=== PATIENT | female | born 1955 | race African-American/Black ===

== ENCOUNTER 2019-05-19 11:48 | Emergency (ER) | payer MEDICARE, SELFPAY ==
--- NOTE | ~2019-05-19 | CT_ITS ---
EXAMINATION: CT abdomen pelvis wo con EXAM DATE: 05/19/2019 13:13 INDICATION: Right flank pain. TECHNIQUE: Spiral CT of the abdomen and pelvis was performed without contrast. Axial, coronal and sag ittal images were reviewed. The dose-length product (DLP) for this examination was 1121.64 mGy-cm. The exposure was tailored according to patient size (auto mA exposure control), and iterative reconst ruction (ASIR) was used as additional dose reduction technique. There is no prior study for comparis on. FINDINGS: There is no nephrolithiasis or hydronephrosis. The uterus is anteverted and morphological ly normal. The bladder is unremarkable. The liver, spleen, adrenal glands and pancreas are unremar kable. Gallbladder is unremarkable. No biliary obstruction. There is no retroperitoneal or pelvic lymphadenopathy. There are 2 anterior abdominal wall hernias containing portions of the antimesenteri c side of transverse colon. No inflammation. The appendix is not positively visualized. There is no pericecal inflammatory change to suggest appe ndicitis. The stomach and small bowel are unremarkable. There is expected amount of colonic stool. No free intraperitoneal gas. The heart is normal in size. There are no pericardial or pleural e ffusions. The lung bases are unremarkable. The bones are unremarkable. IMPRESSION: 1. No nephrolithiasis, hydronephrosis or acute intra-abdominal findings. 2. Fat-containing upper abdominal anterior hernia is containing portions of nonobstructed antimesent maldonado transverse colon. Reviewed, dictated and finalized at location B. IMPRESSION: 1. No nephrolithiasis, hydronephrosis or acute intra-abdominal findings. 2. Fat-containing upper abdominal anterior hernia is containing portions of no nobstructed antimesenteric transverse colon.
[2019-05-19 12:08] VITALS: BP 132/78; PULSE 97; RESP 18; O2SAT 98
[2019-05-19 12:32] LABS: Basophils Absolute Auto 0.1 K/mm3 (0.0-0.1); Basophils Percent Auto 0.6 % (0.2-1.2); Eosinophils Absolute Auto 0.5 K/mm3 (0-0.3); Eosinophils Percent Auto 5.6 % (0-4.4); Hematocrit 41.9 % (37.0-47.0); Hemoglobin 13.1 g/dL (12.0-15.0); Immature Granulocyte Absolute 0.03 K/mm3 (0.00-0.031); Immature Granulocyte Percent A 0.3 % (0-0.5); Lymphocytes Absolute Auto 2.35 K/mm3 (0.9-3.2); Lymphocytes Percent Auto 26.6 % (18.3-44.2); Mean Corpuscular HGB Conc 31.3 g/dl (32-36); Mean Corpuscular Hemoglobin 24.1 pg (26-34); Mean Corpuscular Volume 77.2 fl (80-100); Mean Platelet Volume 10.8 fl (7.4-10.4); Monocytes Absolute Auto 0.5 K/mm3 (0.1-0.6); Monocytes Percent Auto 5.6 % (2.6-8.5); Neutrophils Absolute Auto 5.4 K/mm3 (1.3-6.7); Neutrophils Percent Auto 61.3 % (45.5-73.1); Platelet Count Result 319 k/mm3 (150-375); Red Blood Count 5.43 M/mm3 (4.2-5.4); Red Cell Distribution Width 16.7 % (11.5-14.5); White Blood Count 8.9 K/mm3 (4.5-10.0)
[2019-05-19 12:36] LABS: Add Urine Microscopic? YES; Appearance Urine Clear (Clear); Bacteria Urine Trace /hpf; Bilirubin Urine Negative (Negative); Blood Urine Negative (Negative); Color Urine Yellow (Yellow); Glucose Urine UA Negative (Negative); Ketones Urine Negative (Negative); Leukocyte Esterase Ur Negative LEU/UL (Negative); Mucus Urine Rare /lpf; Nitrate Urine Negative (Negative); Protein Urine Negative (Negative); RBC Urine 0-2 /hpf (0-2); Specific Grav Ur 1.013 (1.001-1.035); Squamous Epithelial Cell Urine Rare /hpf (Few); WBC Urine 0-3 /hpf
[2019-05-19 12:43] LABS: Blood Urea Nitrogen 13 mg/dL (7-17); Carbon Dioxide 30 mmol/L (22-30); Chloride 103 mmol/L (98-107); Estimated CRCL calculation 94 ml/min; Estimated Glomerular Filt Rate > 60; Glucose 109 mg/dL (65-105); Sodium 139 mmol/L (137-145)
[2019-05-19 12:58] LABS: Alanine Aminotransferase 13 U/L (4-35); Albumin Level 4.5 g/dL (3.5-5.1); Alkaline Phosphatase 109 U/L (38-126); Aspartate Amino Transferase 21 U/L (14-36); Bilirubin,Total 0.4 mg/dL (0.2-1.3); Lipase 97 U/L (23-300)
--- NOTE | 2019-05-19 13:41 | ED.BACK ---
HPI - Back Pain/Injury General Chief Complaint: Back Pain/Injury Stated Complaint: Flank pain Time Seen by Provider: 05/19/19 12:16 Source: patient Mode of arrival: ambulatory Limitations: no limitations History of Present Illness HPI Narrative: Patient is a 63-year-old female who presents to emergency department for evaluation of right-sided flank pain noting sharp stabbing pain to the right flank worse with activity and movement patient notes that the pain radiates from the CVA region into the abdomen is worse with activity and movement. Denies similar occurrence in the past any fever chills nausea vomiting or URI symptoms. Related Data Home Medications Medication Instructions Recorded Confirmed diclofenac sodium 75 mg PO BID 05/19/19 05/19/19 levothyroxine 1 mcg/kg 05/19/19 metoprolol tartrate 50 mg PO Q12H 05/19/19 05/19/19 pantoprazole 40 mg PO QAM 05/19/19 05/19/19 Allergies Allergy/AdvReac Type Severity Reaction Status Date / Time shrimp Allergy Difficulty Verified 05/19/19 12:14 Breathing Review of Systems Review of Systems: All systems reviewed & are unremarkable except as noted in HPI and below PMFSH Past Medical History Medical History Obesity Surgical History Surgical History H/O section Social History Social History Smoking status: Current every day smoker Gender identity (if verbalized by the patient): Female Exam Narrative: Exam Narrative: GENERAL: Well-appearing, obese, and in no acute distress. HEAD: Normocephalic, atraumatic. EYES: PERRLA and EOMI. ENT: Nares clear, no rhinorrhea or epistaxis. Mucous membranes moist. Oropharynx without tonsillar hypertrophy exudate or other lesions. CHEST: Clear to auscultation. No respiratory distress. No wheezes rales or rhonchi HEART: Regular rate and rhythm. No murmur heard. Normal peripheral pulses. ABDOMEN: Soft, tenderness in the right upper abdomen, nondistended EXTREMITIES: Normal range of motion. No edema. SKIN: Warm, dry, no rash. NEURO: No focal deficits. Alert and oriented x3. PSYCH: Normal mood and affect. Course Course Emergency Course: Patient in the room at this time in no distress aware of case findings treatment plan and diagnosis agreeing to follow-up as directed or to return if symptoms worsen or concerns Vital Signs Vital signs: Vital Signs Pulse Rate 97 05/19/19 12:08 Respiratory Rate 18 05/19/19 12:08 Blood Pressure 132/78 05/19/19 12:08 Pulse Oximetry 98 05/19/19 12:08 Pulse Rate 97 05/19/19 12:08 Respiratory Rate 18 05/19/19 12:08 Blood Pressure 132/78 05/19/19 12:08 Pulse Oximetry 98 05/19/19 12:08 MDM - Back Pain/Injury MDM Narrative Medical decision making narrative: Patient in the room without any high risk changes in the blood work or imaging. Patient agreeing to follow-up as directed provided with reasons to return. Lab Data Result diagrams: 05/19/19 12:24 05/19/19 12:24 Labs: Lab Results 05/19/19 05/19/19 05/19/19 Range/Units 12:23 12:24 12:24 WBC 8.9 (4.5-10.0) K/mm3 RBC 5.43 H (4.2-5.4) M/mm3 Hgb 13.1 (12.0-15.0) g/dL Hct 41.9 (37.0-47.0) % MCV 77.2 L (80-100) fl MCH 24.1 L (26-34) pg MCHC 31.3 L (32-36) g/dl RDW 16.7 H (11.5-14.5) % Plt Count 319 (150-375) k/mm3 MPV 10.8 H (7.4-10.4) fl Immature Gran % (Auto) 0.3 (0-0.5) % Neut % (Auto) 61.3 (45.5-73.1) % Lymph % (Auto) 26.6 (18.3-44.2) % [place] % (Auto) 5.6 (2.6-8.5) % Eos % (Auto) 5.6 H (0-4.4) % Baso % (Auto) 0.6 (0.2-1.2) % Lymph # (Auto) 2.35 (0.9-3.2) K/mm3 [place] # (Auto) 0.5 (0.1-0.6) K/mm3 Eos # (Auto) 0.5 H (0-0.3) K/mm3 Baso # (Auto) 0.1 (0.0-0.1) K/mm3 Abs Immat Gran (auto) 0.03 (0.0
[2019-05-19 14:32] VITALS: BP 129/67; PULSE 58; O2SAT 98
== END 2019-05-19 14:17 | disposition home or self-care (01) ==
PROVIDERS: Emergency Medicine Emergency Medical Services; Emergency Provider Emergency Medicine; PCP Internal Medicine Infectious Disease
DX: R10.9 Unspecified abdominal pain (principal); E66.9 Obesity, unspecified; Z68.43 Body mass index [BMI] 50.0-59.9, adult; F17.210 Nicotine dependence, cigarettes, uncomplicated
CPT/HCPCS: 36415; 74176; 80048; 80076; 81001; 83690; 85025; 96365; 99284; J0131

== ENCOUNTER 2024-01-06 07:59 | Outpatient (CLI) | payer MEDICARE, OTHER, SELFPAY ==
--- NOTE | 2024-01-06 12:57 | WPDPFTINT ---
PFT Procedure Performed PFT Procedure Performed Spirometry with Pre/Post Bronchodilator Plethysmography (Lung Vol) Diffusing Cap (DLCO) Flow Vol Loop PFT Interpretation This is a pulmonary function test with pre and post-bronchodilator spirometry, plethysmography and diffusing capacity. The test was performed and results interpreted in accordance with the 2019 and 2005 ATS/ERS Task Force guidelines respectively using the Global Lung Function Initiative-2012 reference equations. Patient demonstrated good effort and cooperation. Reproducibility criteria were met. The quality of the pre bronchodilator spirometry maneuver was Grade A and post bronchodilator spirometry maneuver was Grade A. Findings: Spirometry: The contour the inspiratory and expiratory flow tracing are normal. The pre bronchodilator FVC is 2.21 L, 92% predicted. The pre bronchodilator FEV1 is 1.56 L, 83% predicted. The pre bronchodilator FEV1: FVC ratio 71%. The post bronchodilator FVC is 2.23 L, representing 1% increase. The post bronchodilator FEV1 is 1.67 L, representing a 7% increase. The post bronchodilator FEV1: FVC ratio 75%. Plethysmography: The total lung capacity is 3.52 L, 82% predicted. The functional residual capacity is 2.11 L, 79% predicted. The residual volume is 1.31 L, 67% predicted. Diffusing capacity: The diffusing capacity unadjusted for hemoglobin and carboxyhemoglobin is 15.4, 76% predicted. The diffusing capacity adjusted for alveolar volume is 4.33, 99% predicted. Impression: The spirometry is normal without evidence of an obstructive abnormality. There is no significant improvement after inhaling a single dose of albuterol. The lung volumes are normal. The diffusing capacity is normal. There are no prior studies for comparison
== END 2024-01-06 08:00 | disposition home or self-care (01) ==
PROVIDERS: PCP Internal Medicine Infectious Disease
DX: R06.00 Dyspnea, unspecified (principal)
CPT/HCPCS: 94060; 94726; 94729

== ENCOUNTER 2024-03-22 16:37 | Outpatient (CLI) | payer MEDICARE, MEDICAID, SELFPAY ==
--- NOTE | ~2024-03-22 | US_ITS ---
EXAM: Focused ultrasound examination of the soft tissues of the left axilla HISTORY: localized enlarged lymph nodes TECHNIQUE: Sonographic evaluation of the soft tissues of the left axilla were performed assessing gra yscale appearance and color Doppler flow. COMPARISON: None. FINDINGS: Within the area of palpable concern is a morphologically benign lymph node measuring 7.4 mm in short axis dimension. Sonographic evaluation of the remainder of the soft tissues of the left axilla demonstrate benign fib rofatty and fibromuscular elements without a cystic or solid lesion of concern. IMPRESSION: Morphologically benign nonpathologically enlarged lymph node within the left axilla, corresponding to the area of palpable concern Reviewed, dictated and finalized at location A. LYTIC CASE OPERATOR IMPRESSION: Morphologically benign nonpathologically enlarged lymph node within the left ax illa, corresponding to the area of palpable concern
== END 2024-03-22 16:38 | disposition home or self-care (01) ==
PROVIDERS: PCP Internal Medicine Infectious Disease; Visit Provider Internal Medicine Infectious Disease
DX: R59.0 Localized enlarged lymph nodes (principal)
CPT/HCPCS: 76882

== ENCOUNTER 2024-05-03 10:07 | Outpatient (CLI) | payer MEDICARE, MEDICAID, SELFPAY ==
[2024-05-03 11:06] LABS: Basophils Absolute Auto 0.1 K/mm3 (0.0-0.1); Basophils Percent Auto 0.7 % (0.2-1.2); Eosinophils Absolute Auto 0.5 K/mm3 (0-0.3); Eosinophils Percent Auto 7.4 % (0-4.4); Hematocrit 41.1 % (37.0-47.0); Hemoglobin 12.5 g/dL (12.0-15.0); Immature Granulocyte Absolute 0.02 K/mm3 (0.00-0.031); Immature Granulocyte Percent A 0.3 % (0-0.5); Lymphocytes Absolute Auto 1.86 K/mm3 (0.9-3.2); Lymphocytes Percent Auto 25.5 % (18.3-44.2); Mean Corpuscular HGB Conc 30.4 g/dl (32-36); Mean Corpuscular Hemoglobin 23.9 pg (26-34); Mean Corpuscular Volume 78.4 fl (80-100); Monocytes Absolute Auto 0.5 K/mm3 (0.1-0.6); Monocytes Percent Auto 6.2 % (2.6-8.5); Neutrophils Absolute Auto 4.4 K/mm3 (1.3-6.7); Neutrophils Percent Auto 59.9 % (45.5-73.1); Platelet Count Result 310 k/mm3 (150-375); Red Blood Count 5.24 M/mm3 (4.2-5.4); Red Cell Distribution Width 15.9 % (11.5-14.5); White Blood Count 7.3 K/mm3 (4.5-10.0)
[2024-05-03 11:16] LABS: Alanine Aminotransferase 11 U/L (6-35); Alkaline Phosphatase 87 U/L (38-126); Anion Gap 8 mmol/L (4-12); Aspartate Amino Transferase 17 U/L (14-36); Bilirubin,Total 0.5 mg/dL (0.2-1.3); Blood Urea Nitrogen 13 mg/dL (7-17); Calcium 9.3 mg/dL (8.4-10.2); Carbon Dioxide 29 mmol/L (22-30); Chloride 105 mmol/L (98-107); Cholesterol 216 mg/dL (0-200); Estimated Glomerular Filt Rate > 60; Glucose 98 mg/dL (65-110); HDL Direct 79 mg/dL; Potassium 4.1 mmol/L (3.4-5.0); Sodium 142 mmol/L (137-145); Triglycerides 75 mg/dL (<150)
[2024-05-03 11:21] LABS: Creatinine Urine 71.1 mg/dL
[2024-05-03 11:27] LABS: LDL Cholesterol Direct 76 mg/dL
[2024-05-03 11:29] LABS: MALB Creatinine Ratio < 8.4 mg/g (0-30); Microalbumin Urine Random < 6.0 mg/L (0-16.7)
[2024-05-03 11:35] LABS: Hemoglobin A1C 5.7 % (<5.7)
--- OUTSIDE RECORDS SUMMARY | 2024-05-03 11:37 | XMS_ITS | Data Portability ---
Author Organization [place] [employer], Main Office Address [address] [place] [address] Care Team Providers Care Radio Mechanic Helper Name Role Phone OLIVIER VOGEL Primary Care Provider OLIVIER VOGEL Referring Provider Assessment Encounter Date Assessment Date Assessment LastModified by Organization Details LastModified Time 09/24/2022 09/24/2022 Palpable lymphadenopathy of R groin. PCP concerned for persistent lymphadenopathy for the past two years. US shows bilateral lymphadenopathy. Likely inflammatory, but considering duration, will plan for core biopsy of R inguinal lymph node. DIscussed options with patient and she prefers to have bx rather than continued watchful waiting. CT does not show prominent lymph nodes, does indicate arthritis of bilateral hips and degenerative disc disease which may likely be contributing to R leg numbness/pain. [email or web address] Not available 09/24/2022 12:50:33 10/01/2023 10/01/2023 Time spent with patient included: preparing to see patient by reviewing tests, obtaining and reviewing history, medical examination and evaluation, counseling and educating the patient, ordering medications and tests, documenting clinical information in EHR, independently interpreting results and communicating results to the patient for a total of 45 minutes. Not available 10/01/2023 12:25:06 12/22/2023 12/22/2023 Time spent with patient included: preparing to see patient by reviewing tests, obtaining and reviewing history, medical examination and evaluation, counseling and educating the patient, ordering medications and tests, documenting clinical information in EHR, independently interpreting results and communicating results to the patient for a total of 42 minutes. Not available 12/22/2023 11:03:17 Plan of Treatment Reminders Order Date Submit Date Provider Last Modified By Organization Details Last Modified Time Details Appointments New Patient 15 2024 01:35P M Cricket Guillen MD Not available Not available Not available New Patient 2024 02:00P M Andrew Rivero DPM Not available Not available Not available Any 15 2024 02:30P M Summer akhtar MD Not available Not available Not available Lab microalbu min, urine [address] [place] [address] (Lab), [address] [place] [address] [address], [place], [address], 04/29/2024 17:38:17 HbA1c (hemoglob in A1c), blood [address] [place] [address] (Lab), [address] [place] [address] [address], [place], [address], 04/29/2024 17:38:17 vitamin D, 25-hydrox y, total, serum [address] [place] [address] (Lab), [address] [place] [address] [address], [place], [address], 04/29/2024 17:38:16 CMP, serum or plasma [address] [place] [address] (Lab), [address] [place] [address] [address], [place], [address], 04/29/2024 17:38:16 CBC w/ auto diff [address] [place] [address] (Lab), [address] [place] [address] [address], [place], [address], 04/29/2024 17:38:16 lipid panel, serum [address] [place] [address] (Lab), [address] [place] [address] [address], [address], 04/29/2024 17:38:16 TSH + free T4, serum [address] [place] [address] (Lab), [address] [place], [place] [address], [address], 04/29/2024 17:38:17 creatinin e, serum or plasma 2023 [facility] (Lab), [address] [place], [address], 01/09/2024 11:59:30 vitamin E, serum 2023 024 [facility] (Lab), [address] [place], [address], 01/09/2024 11:59:48 bun (blood urea nitrogen) , serum or plasma [email or web address] [place] [address] (Lab), [address] [place], [address], 02/04/2024 15:34:16 folate, RBC [email or web address] [place] [address] (Lab), [address] [place], [address], 02/04/2024 15:34:16 hemoglobi n + hematocri t, blood [email or web address] [place] [address] (Lab), [address] [place], [address], 02/04/2024 15:34:16 magnesium , serum or plasma 2023 024 [email or web address] 2 [facility] (Lab), [address] [place], [address], 02/04/2024 15:34:16 ESR (erythroc yte sedimenta tion rate), blood 2023 024 [email or web address] 2 [facility] (Lab), [address] [place], [address], 02/04/2024 15:34:16 vitamin B12, serum 2023 024 [email or web address] 2 [facility] (Lab), [address], [place], [address], 02/04/2024 15:34:17 Referral podiatris t referral - Please call patient to schedule an appointme nt. Thank you. 2024 025 JENNIFER Rivero DPM, [address], [address], [place], [address], 04/14/2024 11:02:19 orthopedi c surgeon referral - Please call patient to schedule an appointme nt. Thank you. 2024 025 Cricket Guillen MD, [address] [place], [address], 04/29/2024 11:25:31 cardiolog ist referral - Please call patient to schedule an appointme nt. Thank you. 2024 025 [facility] Referral Fax Line, [address] [facility], [address], [place], [address], 04/09/2024 11:05:24 Procedures polysomno graphy, diagnosti c (PROC) - Approved for scheduled DOS [address] [facility] [place], [address] [place], [address], 10/30/2023 11:07:21 Surgeries None recorded. Imaging MAMMO, screening , digital, bilateral - Please call patient to schedule. [address], [address] [place] [address], [address], 04/26/2024 15:36:26 DEXA, axial skeleton - Please call patient to schedule. 2024 025 [facility], [address], [place], [address], 04/08/2024 17:35:21 polysomno gram, titration study - Please call patient to schedule. 2023 024 [email or web address] [facility]), [address] [facility], [place], [address], 02/09/2024 18:23:31 Medication Orders None recorded. Patient TargetsNo targets recorded. Patient Instructions Encounter Date Encounter Id Patient Instructions Last Modified By Organization Details Last Modified Time 10/01/2023 [id number] complete PFT w/ post bronchodilator spirometry* - No auth required Not available 12/31/2023 08:40:17 04/08/2024 [id number] diabetic eye exam* Not avail able 04/08/2024 17:01:16 Reason for Referral Orthopedic Surgeon Referral for Pain of right knee joint Please call patient to schedule an appointment. Thank you. Referring Physician: Summer [facility], Encounter Date: 04/08/2024 Entry Level Account Manager Referral for Es sential hypertension Please call patient to schedule an appointment. Thank you. Referring Physician: Summer [facility]ran [facility], Encounter Date: 04/08/2024 Occupational Health Coordinator Referral for Pred iabetes Please call patient to schedule an appointment. Thank you. Referring Physician: Summer [facility]ran [facility], Encounter Date: 04/08/2024 Results Created Date Observation Date Name Description Value Unit Range Abnormal Flag Note LastModifiedBy Organization Detail LastModifiedTime 11/21/19 24 11/18/2023 polys omnog stanley , diagn ostic (PROC ) No observ ation record ed. [email or web address] [facility] [address] [place], [address], 12/29/2023 08:57:50 01/21/20 24 01/06/2024 compl ete PFT w/ post [facility] hodil ator cande metry * No observ ation record ed. [facility] [address], [place], [address], 01/21/2024 14:25:01 04/12/19 25 03/22/2024 danieli ng/luz boyd tic resul t No observ ation record ed. [facility] [address], [place], [address], 04/12/2024 14:17:36 Result Notes None recorded. Problems Name Problem SNOMED Code Status Onset Date Resolution Date Notes Provider Name and Address Organization Details Recorded Time Lymphadenop athy 14798921 Active 2022 Maverick ceron MD [address], [address], [place], [address], [facility] [employer] [facility] 3 14:10:58 Obstructive sleep apnea syndrome 98313912 Active 2023 Heather Osborn NP [address], [address], [place], [address], [facility] [employer] [facility] 4 12:00:34 Sleep apnea 01614624 Active 2023 Antonia Thompson MA null, [facility] [employer] [facility] 4 10:16:25 Hypersomnia with sleep apnea 64450661 Active 2023 Antonia Thompson MA null, [facility] [employer] [facility] 4 10:16:25 Hypersomnia 46732699 Active 2023 Antonia Thompson MA null, [facility] [employer] [facility] 4 10:16:25 Periodic limb movement disorder 712855819 Active 2023 Heather Osborn NP [address], [address], [place], [address], [facility] [employer] [facility] 4 10:29:14 Vitamin B deficiency 90012217 Active 2023 Heather Osborn NP [address], [address], [place], [address], [facility] [employer] [facility] 4 09:17:50 Essential hypertensio n 26855581 Active 2024 Summer akhtar MD [address], [place], [address], [employer] [facility] [employer] [facility] 5 16:34:24 Hypothyroid ism 16716566 Active 2024 Summer akhtar MD [address], [place], [address], [employer] [facility] 5 16:34:35 Pain of right knee joint 0740279342401 00 Active 2024 Summer akhtar MD [address], [address], [place], [address], [employer] 5 16:42:10 Low back pain 728845025 Active 2024 Summer akhtar MD [address], [address], [place], [address], [employer] [facility] 5 16:44:55 Prediabetes 201800201 Active 2024 Summer akhtar MD [address], [place], [address], [employer] [facility] [employer] [facility] 5 16:54:26 Axillary lymphadenop athy 267111248 Active 2024 Summer akhtar MD [address], [place], [address], [employer] [facility] 5 17:06:44 Notes:[facility] diagnostic sleep study 11/18/23 sleep onset = 2.5 minutes, REM onset = 127.5 minutes, AHI = 6, REM AHI = 51, PLMI = 12 Medical History: Obesity with mild OSAHS, AHI = 6, 11/18/23 Hypothyroidism Hypertension OA Procedure History: Abdominal wall herniorrhaphy Cholecystectomy Problem Notes None recorded. Procedures Surgical History Date Name Laterality Status Provider Name and Address Organization Details Recorded Time 02/15/20 21 other completed Alise Roland MA [facility] 09/23/2022 11:59:16 07/12/19 17 capsule endoscopy completed Alise Roland MA [facility] 09/23/2022 11:59:49 03/29/19 17 Colonoscopy completed Alise Roland MA [facility] 09/23/2022 12:00:36 03/10/18 84 Gallbladder Surgery completed Not Available [facility] 05/08/2022 23:57:05 Hernia Repair completed Not Available [facility] 05/08/2022 23:57:05 section completed Not Available [facility] 05/08/2022 23:57:05 Tubal Ligation completed Alise Roland MA [facility] 09/23/2022 12:00:57 Dilation and curettage completed Alise Roland MA [facility] 09/23/2022 12:01:40 section completed Alise Roland MA [facility] 09/23/2022 12:02:18 surgical repair completed Mabel sotelo MA [facility] 10/01/2023 11:31:38 Imaging Results Imaging Date Name Status LastModified by Organization Details LastModified Time 11/18/2023 polysomnography, diagnostic (PROC) completed [email or web address] [facility] [address] [place], [address], 12/29/2023 08:57:50 01/06/2024 complete PFT w/ post bronchodilator spirometry* completed [facility] [address] [place] [address], [address], 01/21/2024 14:25:01 03/22/2024 imaging/diagnostic result active [address], [address], 04/12/2024 14:17:36 Procedure Notes None recorded. Medical Equipment None Reported. Allergies Allergen ID Allergen Name Allergen Category Reaction Reaction Severity Criticality Documentation Date Start Date Code Code System Note Provider Name and Address Organization Details Recorded Time 22093 shellfish derived food,medi cation Not available Not available Not available 09/23/2022 32381 UNK Alise Roland MA null, [facility] [employer] 3 11:53:38 07478 Iodinated contrast media (substanc e) medicatio n rash severe Not available 04/08/2024 16398 2003 SNOMED AUGUSTUS Sher null, [facility] [employer] 5 16:23:51 Medications Name Sig Start Date Stop Date Status Note LastModified by Organization Details LastModified Time cyclobenz aprine 10 mg tablet Take 1 tablet twice a day by oral route as needed. active for back spasms Not Available Not Available Not Available prednison e 10 mg tablet 04/03 completed Not Available Not Available Not Available BD Insulin Syringe 1 mL 25 x 1 USE ONCE A MONTH FOR B12 INJECTIO NS 11/18 completed Not Available Not Available Not Available benzonata te 200 mg capsule TAKE 1 CAPSULE BY MOUTH THREE TIMES DAILY FOR 5 DAYS NEEDED 09/30 completed Not Available Not Available Not Available peg-elect rolyte solution 420 gram oral solution MIX AND DRINK 1/2 AT 5 PM ON 02/13 AND 1/2 AT 5 AM ON 02/14 completed Not Available Not Available Not Available aspirin 81 mg tablet,de layed release TAKE 1 TABLET BY MOUTH DAILY active Not Available Not Available No t Available triamcino lone acetonide 0.1 % topical cream APPLY A THIN LAYER TO THE AFFECTED AREA(S) BY TOPICAL ROUTE 2 TIMES PER DAY active Not Available Not Available No t Available prednison e 10 mg tablets in a dose pack Take 1 tab by mouth, 3 times a day for 3 daysTake 1 tab by mouth 2 times a day for 2 daysTake 1 tab by mouth once a day for 1 day 04/03 completed Not Available Not Available Not Available levothyro xine 100 mcg tablet 09/24 completed Not Available Not Available Not Available cyanocoba maria c (vit B-12) 500 mcg tablet take 1 tablet po daily 2023 active Not Available Not Available Not Avai lable Kenalog 10 mg/mL suspensio n for injection In office injectio n administ ered by the provider 04/03 completed ND: [id number] 4-20 Not Available Not Available Not Available levothyro xine 125 mcg tablet TAKE 1 TABLET BY MOUTH EVERY DAY 09/30 completed Not Available Not Available Not Available prednison e 50 mg tablet TAKE 1 TABLET BY MOUTH EVERY 6 HOURS FOR 1 DAY 09/30 completed Not Available Not Available Not Available levothyro xine 150 mcg tablet TAKE 1 TABLET BY MOUTH EVERY DAY active Not Available Not Available No t Available metoprolo l tartrate 50 mg tablet TAKE 1 TABLET BY MOUTH TWICE DAILY DIRECTED active Not Available Not Available No t Available diclofena c sodium 75 mg tablet,de layed release TAKE 1 TABLET BY MOUTH TWICE DAILY NEEDED FOR PAIN active Not Available Not Available No t Available bisacodyl 5 mg tablet,de layed release TAKE 6 TABLETS BY MOUTH AT 8 AM ON 02/13 completed Not Available Not Available Not Available levothyro xine 112 mcg tablet TAKE 1 TABLET BY MOUTH DAILY 09/24 completed Not Available Not Available Not Available oxycodone 5 mg tablet TAKE 1 TABLET BY MOUTH EVERY 4 HOURS NEEDED FOR PAIN. MAY REPEAT DOSE ONCE IN 30 MINUTES IF ADDITION AL PAIN RELIEF NEEDED 09/24 completed Not Available Not Available Not Available magnesium active Not Available Not Kalee ilable Not Available potassium active Not Available Not Kalee ilable Not Available Vitamin D3 active Not Available Not Available Not Available Multivita min 50 Plus active Not Available Not Available Not Available lidocaine (PF) 10 mg/mL (1 %) injection solution In office injectio n administ ered by the provider 04/03 completed NDC: [id number] - Not Available Not Available Not Available Synvisc-O ne 48 mg/6 mL intra-art icular syringe Injectio ns given in the office by the doctor 12/21 completed NDC: [id number] 001 Not Available Not Available Not Available levothyro xine 112 mcg capsule TAKE 1 CAPSULE BY MOUTH DAILY 09/24 completed Not Available Not Available Not Available Paxlovid 300 mg (150 mg x 2)-100 mg tablets in a dose pack TK 2 NIRMATRE LVIR TS AND 1 RITONAVI R T TOGETHER PO BID FOR 5 DAYS BID FOR 5 DAYS DIRECTED 09/30 completed Not Available Not Available Not Available Vitals Date Recorded Body mass index (BMI) Body height Body weight Provider Name and Address Organization Details Last Updated DateTime 04/03/2021 50.7 kg/m2 160.02 cm 939214.42 g Not Available [facility] 05/08/2022 23:57:22 Date Recorded Body height Body mass index (BMI) Body weight Body temperature Respiratory rate Oxygen saturation Oxygen saturation in Arterial blood by Pulse oximetry Heart rate Provider Name and Address Organization Details Last Updated DateTime 3 160.02 cm 47.7 kg/m2 791171. 35 g 98.6 [degF] 14 /min 98 % 98 % 76 /min Alise Roland MA [employer] [facility] [employer] 3 12:10:21 Date Recorded Body height Body mass index (BMI) Body weight Body temperature Heart rate Oxygen saturation Oxygen saturation in Arterial blood by Pulse oximetry Systolic blood pressure Diastolic blood pressure Provider Name and Address Organization Details Last Updated DateTime 4 160.02 cm 48.7 kg/m2 146360. 9 g 98.2 [degF] 62 /min 95 % 95 % 110 mm[Hg] 270 mm[Hg] Mabel Hagan MA [employer] [facility] [employer] 4 11:34:15 Date Recorded Body height Body mass index (BMI) Body weight Body temperature Heart rate Oxygen saturation Oxygen saturation in Arterial blood by Pulse oximetry Systolic blood pressure Diastolic blood pressure Provider Name and Address Organization Details Last Updated DateTime 4 160.02 cm 49.4 kg/m2 393069. 27 g 98 [degF] 70 /min 99 % 99 % 112 mm[Hg] 72 mm[Hg] Antonia Thompson MA [employer] [facility] [employer] 4 10:21:51 Date Recorded Body height Body mass index (BMI) Body weight Body temperature Heart rate Systolic blood pressure Diastolic blood pressure Provider Name and Address Organization Details Last Updated DateTime 5 160.02 cm 49.4 kg/m2 832835. 27 g 97.8 [degF] 72 /min 128 mm[Hg] 70 mm[Hg] AUGUSTUS Sher [employer] [facility] [employer] [facility] 5 16:32:54 Social History Question Answer Notes LastModified by Organizat ion Details LastModified Time Tobacco Smoking Status Never Smoker Not Available [facility] 05/08/2022 23:56:34 Do You Have An Advance Directive? Yes Information not available 04/08/2024 What Is Your Level Of Alcohol Consumption? Occasional [id number] Information not available 05/08/2022 Are You Blind Or Do You Have Difficulty Seeing? No Information not available 04/08/2024 What Is Your Level Of Caffeine Consumption? Occasional Information not available 09/23/2022 In The 14 Days Before Symptom Onset, Have You Had Close Contact With A Laboratory-confir med COVID-19 While That Case Was Ill? No Information not available 10/01/2023 In The 14 Days Before Symptom Onset, Have You Had Close Contact With A Person Who Is Under Investigation For COVID-19 While That Person Was Ill? 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 Yes Information not available 04/08/2024 What Type Of Diet Are You Following? REGULAR Information not available 09/23/2022 What Is The Highest Grade Or Level Of School You Have Completed Or The Highest Degree You Have Received? [id number] 1 Year Of College Information not available 09/23/2022 Do You Have An Electrostatic Air Filter? No Information not available 12/22/2023 Have There Been Any Changes To Your Family Or Social Situation? No Information no t available 10/01/2023 What Is The Fluoride Status Of Your Home? Unknown Information not available 10/01/2023 Are There Any Guns Present In Your Home? No Information not available 09/23/2022 Do You Have A Humidifier? No Information not available 12/22/2023 Do You Use Insect Repellent Routinely? No If Outside For A Long Time Information not available 10/01/2023 Where Do You Live? Apartment Information not available 12/22/2023 Do You Have A Medical Power Of Dressmaker Helper? Yes Information not available 04/08/2024 Do You Have Moisture Problems In Your Home? No Information not available 12/22/2023 What Was The Date Of Your Most Recent Tobacco Screening? 12/22/2023 Information not available 12/22/2023 How Many Children Do You Have? 2 Information not available 12/22/2023 Do You Have Any Pets? No Information not available 10/01/2023 What Is Your Relationship Status? Information not available 09/24/2022 Do You Use Your Seat Belt Or Car Seat Routinely? Yes Information not available 10/01/2023 Do You Have Smoke And Carbon Monoxide Detectors In Your Home? Yes Information not available 09/23/2022 Are You Passively Exposed To Smoke? No Information no t available 10/01/2023 Are There Any Smokers In Your House? No Information not available 10/01/2023 Do You Participate In Social Media? Yes Information not available 10/01/2023 Do You Feel Stressed (tense, Restless, Nervous, Or Anxious, Or Unable To Sleep At Night)? [id number] Information not available 10/01/2023 Do You Use Any Illicit Or Recreational Drugs? No Information not available 12/22/2023 Do You Use Sunscreen Routinely? No Information not available 10/01/2023 Has Tobacco Cessation Counseling Been Provided? No N/a Information not available 04/08/2024 Have You Recently Traveled Abroad? No Information not available 10/01/2023 Do You Have Any Dietary Restrictions? No Information not available 09/23/2022 Do You Or Have You Ever Used Any Other Forms Of Tobacco Or Nicotine? No [email or web address] Information not available 09/23/2022 Sex: Female Functional Status Question Answer Note LastModified by Organizat ion Details LastModified Time Do you have difficulty walking or climbing stairs? Yes Information not available 04/08/2024 Are you able to walk? YESASSIST sometimes uses walker Information not available 04/08/2024 Do you have difficulty doing errands alone? No Information not available 04/08/2024 Are you able to care for yourself? Yes Information not available 04/08/2024 Do you have difficulty dressing or bathing? Yes Information not available 04/08/2024 What is your exercise level? None [email or web address] Information not available 09/23/2022 Mental Status Question Answer Note LastModified by Organization D etails LastModified Time Do you have difficulty concentrating, remembering or making decisions? No Information no t available 04/08/2024 Family History Relationship Description Onset Age of this Age Resolved Age Notes LastModified by Organization Details LastModified Time Mother Heart disease [id number] Not available 05/08/2022 23:57:07 Mother Family history of malignant neoplasm [id number] Not available 05/08/2022 23:57:07 Mother Hypertensive disorder [id number] Not available 05/08/2022 23:57:07 Father Heart disease [id number] Not available 05/08/2022 23:57:07 Son Heart disease [id number] Not available 05/08/2022 23:57:07 Son Hypertensive disorder [id number] Not available 05/08/2022 23:57:07 Brother Family history of malignant neoplasm [id number] Not available 05/08/2022 23:57:07 Sister Disorder of thyroid gland Not available 2024 16:28:20 Sister Malignant tumor of thyroid gland Not available 2024 16:28:38 Daughter Disorder of thyroid gland Not available 2024 16:28:41 Medical History Condition Response SKIN PROBLEMS Y ARTHRITIS Y HYPERTENSION Y HEPATITIS / LIVER DISEASE Y Gynecological HistoryNo gynecological history recorded. Obstetrics History GPAL:G 0 P 0 0 0 0 Past Encounters Encounter ID Performer Location Encounter Start Date Encounter Closed Date Diagnosis/Indication Diagnosis SNOMED-CT Code Diagnosis ICD10 Code Diagnosis Note [id number] [facility] [address] [address] 01/02/2021 00:00:00 01/02/2021 10:53:27 [id number] S_GMG [address] [address] 04/03/2021 00:00:00 04/03/2021 10:54:36 [id number] Maverick casey MD S_GMG General Surgery 2043 [facility], [address] [address] 09/24/2022 11:51:12 09/25/2022 15:25:18 Lymphadenopathy 63018033 R59.0 Groin [id number] Cristina Dunbar [facility] [address] [address] 10/01/2023 11:01:21 10/02/2023 09:03:08 Obstructive sleep apnea syndrome 61799520 G47.33 Sleep study order today-Epwo rth 13Discusse d sleep hygeineEnc ourage continued weight loss and moderate exercise when toleratedA dvised good sleep habits and patterns:- Set a goal for at least 7 to 8 hours of sleep time per day-Use the bed mainly for sleep and to go to bed only when tired. If unable to fall asleep after 30 minutes, patient should get out of bed but should not engage in any activity that requires sustained mental alertness. -Maintain a bedtime and wake-up time even on weekends or day off of work.-Avoi d excessive naps during the daytime. 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 [id number] Heather Osborn NP [facility] [address] [place] [address] [place] [address] 12/22/2023 10:00:05 12/22/2023 11:07:55 Hypersomnia with sleep apnea 57101882 G47.19 Obstructiv e sleep apnea syndrome 43580530 G47.33 G47.36 [facility] diagnostic sleep study 11/18/23 sleep onset = 2.5 minutes, REM onset = 127.5 minutes, AHI = 6, REM AHI = 51, PLMI = 12ESS today is 7polysomno gram with titration order placedDisc ussed sleep hygeineEnc ourage continued weight loss and moderate exercise when toleratedA dvised good sleep habits and patterns:- Set a goal for at least 7 to 8 hours of sleep time per day-Use the bed mainly for sleep and to go to bed only when tired. If unable to fall asleep after 30 minutes, patient should get out of bed but should not engage in any activity that requires sustained mental alertness. -Maintain a bedtime and wake-up time even on weekends or day off of work.-Avoi d excessive naps during the daytime. 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.61 Study from 2023 reviewed in detailMild PLMD with arousal index of 12/hourLab order today for PLMD [id number] Summer carias MD A[facility] Internal Med [facility] 2043 [facility], [facility] [address] [place] [address] 04/08/2024 16:10:04 04/08/2024 17:03:53 Screening - NAD 342364157 Z13.9 C-scope: Dr Oro get the report, no report, done 2022 as per her history Mammogram: Get this done DEXA: Get this done PAP: No complaints , no apts with OB Get yearly flu shot, get tdapGet shingrix vaccineGet COVID 19 boostersCa n do PCV #20 RTC in 3 months, do labs, ER if worse, she did verbalize her understand ing of above Essential hypertension 73220237 I10 On metoprolol 50mg bidSees cardiology [facility] Hypothyroidism 07672341 E03.9 On levothyrox ine 150mcgsGet labs Screening for osteoporosis 265361292 Z13.820 Screening mammography 24 596944 Z12.31 Pain of ri ght knee joint 5843822684 [address] Caldwell in the pastWill refer to Dr Guillen Low back pain 484472953 M54.50 On flexerillT bay as needed Prediabetes 117671375 R7 3.03 Axillary lymphadenopathy 604503988 R59.0 Seen by her prior PCP, now is s/p US axilla, get records History of hepatitis C 6270131250 9101 Z86.19 As per history it was treated, get CMP Health Concerns Section Related Observation LastModified by Organization Detai ls LastModified Time None Recorded Concern Status LastModified by Organization Details LastModified Time None Recorded Advance Directives Directive Y: Payers Encounter Date Sequence Insurance Name Policy Number Policy Cespedes Covered Member ID Cespedes Member ID Guarantor Name 09/24/2022 1 [facility] (MEDICARE REPLACEMENT/AD VANTAGE - PPO) [id number] Delilah Segovia [id number] Delilah Segovia 09/24/2022 2 [place] [facility] Delilah Segovia [id number] Delilah Sgeovia 10/01/2023 1 [facility] (MEDICARE REPLACEMENT/AD VANTAGE - PPO) [id number] Delilah Segovia [id number] Delilah Segovia 10/01/[address] [facility] (MEDICAID HMO) [id number] Delilah Segovia [id number] Delilah Segovia 12/22/2023 1 [facility] (MEDICARE REPLACEMENT/AD VANTAGE - PPO) [id number] Delilah Segovia [id number] Delilah Segovia 12/22/[address] [facility] (MEDICAID HMO) [id number] Delilah Segovia [id number] Delilah Segovia 04/08/2024 1 [facility] (MEDICARE REPLACEMENT/AD VANTAGE - PPO) [id number] Delilah Segovia [id number] Delilah Segovia 04/08/2024 2 [place] WHEN MEDICARE OR MEDICARE REPLACEMENT PRIMARY) Delilah Segovia [id number] Delilah Segovia Notes Date Note Type Note Provider Name and Address Organization Details Recorded Time 3 text/html Patient presents to clinic to discuss R inguinal lymphadenopathy. States she feels no masses in the groin, but does have R leg pain, worse with usage. PCP referred here for possible LAD. CT scan noncontributory, shows DDD and facet arthropathy of lumbar spine, bliateral hip arthritis. She had an ultrasound which shows bilateral LAD. likely inflammatory vs. lymphoproliferative etiology. Maverick Williamson MD [address] [place] [address], [place] [address], [place], [address], [facility] [employer] 09/24/2022 14:11:09 4 text/html Obstructive Sleep ApneaReported bypatient.Severity:sever e Timing:daily Duration:12years; frequent Context:inconsistent sleep routine; observed apnea; sleep hours per night4-5 Aggravating Factors:fatigue; irregular sleep schedule; sleep disruption; goes to bed at 8 and wakes up at 1 am -up till 5 am and then sleeps 2-3 more hours Alleviating Factors:none Associated Symptoms:no morning headache; no night sweats; no napping; no impaired work performance; no hyponasal speech; no hyperactivity; normal concentration; no amnesia; no irritability;morning dry mouth;postnasal drip;dysphagia;awakening short of breath;daytime sleepiness;suddenly falling asleep during the day;nasal congestion;loud snoring;gasping for air;witnessed apnea;mouth breathing Prior Tests and Treatments:thyroid panel; electrocardiogramNotes:S he notes right knee pain keeps her from walking far distances. She notes some shortness of breath at rest and has woke up feeling sob. She has had a CPAP in the past about 11-12 years ago. She notes some chest pressure that has woke her up at night along with gasping and choking. She is seeing [facility] and has a work-up pending. 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 EPWORTH SLEEPINESS SCALE (ESS): 13-see copy. Heather Osborn NP [address], [place] [address], [place], [address], [facility] 10/01/2023 12:26:12 4 text/html Obstructive Sleep ApneaReported bypatient.Severity:sever e Timing:daily Duration:12years; frequent Context:inconsistent sleep routine; observed apnea; sleep hours per night4-5 Aggravating Factors:fatigue; irregular sleep schedule; sleep disruption; goes to bed at 8 and wakes up at 1 am -up till 5 am and then sleeps 2-3 more hours Alleviating Factors:none Associated Symptoms:no morning headache; no night sweats; no napping; no impaired work performance; no hyponasal speech; no hyperactivity; normal concentration; no amnesia; no irritability;morning dry mouth;postnasal drip;dysphagia;awakening short of breath;daytime sleepiness;suddenly falling asleep during the day;nasal congestion;loud snoring;gasping for air;witnessed apnea;mouth breathing Prior Tests and Treatments:thyroid panel; electrocardiogramNotes:h ere to review sleep study-mild BONILLA with hypoventilation and PLMDShe does have a hx of back pain and sciatica as well Heather Osborn NP [address], [place] [address], [place], [address], [facility] 12/22/2023 11:05:06 5 text/html OV 04/08/2024: Here to establish care Present Hx:HTNHypothyroidismBil Knee PainHx of cured hep C? Here to discuss above and to get labs Summer Curran MD [address] [employer], [place], [address], [facility] 04/08/2024 19:14:25 OBGyn Episode No OBEpisode recorded.
--- OUTSIDE RECORDS SUMMARY | 2024-05-03 11:37 | XMS_ITS | Continuity of Care Document ---
Author Organization [facility] Address [address] [place] [address] Phone Care Team Providers Care [facility] Tutor Name Role Phone Teresa Fish MD Unavailable Unavailabl e Allergies, Adverse Reactions, Alerts Substance Reaction Status Criticality No Known Drug Allergies Other Active No I nformation Medications Medication Instructions Dosage Effective Dates (start - stop) Status Comments CYANOCOBALAMIN 1000MCG/ML MCG 1 Q MONTH - Active ALTACE 5MG CAPS 1 DAILY - Active GLUCOPHAGE XR 500MG TABS 1 QPM - Active MOBIC 7.5MG TABS 1 DAILY - Active DITROPAN XL 10MG TABS 1 DAILY - Acti ve GLUCOPHAGE 500MG TABS 1 DAILY - No Longer Active TOPROL XL 50MG TABS 1 QD-daily 006 - No Longer Active Advance Directives Directive Yes / No Effective Date File Name No Information Encounters Encounter Description Practice Location Reason(s) For Visit Diagnoses Date Provider Providers Copied on Encounter [employer] [facility], [address], [place], [place], [address] , tel:[phone] Rachel No Information 1 Abe Moore. [address] [place], [place], [address]. tel:[phone] [employer] [facility], [address], [place], [place], [address] , tel:[phone] Rachel MERLE HY KID W CR KID [id number] DEFIC NECLONG-TERM USE MEDS NECDMII RENL NT ST UNCNTRLDSCREEN MAL NEOP-RECTUMCHRO KIDNEY DIS STAGE IIGENERAL OSTEOARTHROSIS 200 [address] Fish Teresa. [address] [place], [place], [address]. tel:[phone] [employer], [address], [place], [place], [address] , [place] tel: [phone] Milton SPRAIN OF BACK NOS 9200 7 Fish Teresa. [address] [place], [place], [address]. tel:[phone] [employer], [address], [place], [place], [address] , [place] tel: [phone] [place] LOC PRIM OSTEOART-L/LEG Sep-1 7200 7 [facility]. [address] [place], [place], [address]. tel:[phone] [employer], [address], [place], [place], [address] , [place] tel: [phone] [place] PAIN IN LIMBCHEST PAIN NECSKIN SENSATION DISTURBJOINT PAIN-L/LEG Sep-1 3200 7 [facility]. [address] [place], [place], [address]. tel:[phone] [employer], [address], [place], [place], [address] , [place] tel: [phone] Milton FEM STRESS INCONTINENCE Sep-1 1200 7 [facility]. [address] [place], [place], [address]. tel:[phone] [employer], [address], [place], [place], [address] , [place] tel: [phone] [place] ABN LIVER FUNCTION STUDYDISACCHARIDASE DEF/MALAB Sep-0 5200 7 [facility]. [address] [place], [place], [address]. tel:[phone] [employer], [address], [place], [place], [address] , [place] tel: [phone] Rachel SCREEN LIPOID DISORDERS Feb- 6 Abe Marianoorah. [address] [place], [place], [address]. tel:[phone] [employer] [facility], [address], [place], [place], [address] , tel: [phone] Rachel No Information Feb- 6 Abe Hunterh. [address] [place], [place], [address]. tel:[phone] Family History Family Member Type Diagnosis Age At Onset No Information Payers Payer name Insurance type Covered republican ID Authoriza tion(s) No Information Social History Type Description Quantity Date Captured Comments Sex Female Smoking Status No Information Chief Complaint And Reason For Visit No Information Reason For Referral Reason For Referral No Information History Of Present Illness Encounter Date Complaint History Of Prese nt Illness No Information Functional Status Date Functional Assessmen t No Information Instructions Date Instruction Additional Infor mation No Information Assessments Type Assessment Date No Information Patient Care Teams Name Effective Dates (start - stop) Status Members No Information
--- OUTSIDE RECORDS SUMMARY | 2024-05-03 11:37 | XMS_ITS | Clinical Summary ---
Author Organization [facility] Address [address] [place] [address] Care Team Providers Care Track Laying Supervisor Name Role Phone Kiara Vasquez ESTHER Primary Care Provider [phone] Social History Tobacco Use Types Packs/Day Years Used Date Smoking Tobacco: Never Assessed Comments Unknown Sex and Gender Information Value Date Recorded Sex Assigned at Not on file Legal Sex Female 6:56 PM CDT Gender Identity Not on file Sexual Orientation Not on file Last Filed Vital Signs Vital Sign Reading Time Taken Comments Blood Pressure 110/60 04/01/2016 1:28 PM [employer] Pulse 64 04/01/2016 1:28 PM [employer] Temperature - - Respiratory Rate - - Oxygen Saturation - - Inhaled Oxygen Concentration - - Weight 141.5 kg (312 lb) 04/01/2016 1:28 PM [employer] Height 160 cm (5' 3 ) 04/01/2016 1:28 PM [employer] Body Mass Index 55.27 04/01/2016 1:28 PM [employer] Plan of Treatment Health Maintenance Due Date Last Done Comments Colorectal Cancer Screening Colonoscopy (10 Years) 1955 DTaP, Tdap and Td Vaccines ( 1 - Tdap) 11/12/1974 Mammogram Screening 1995 Zoster Vaccines (1 of 2) 11/12/2005 Dexa Scan (General) 11/12/2020 Pneumococcal Vaccine: 65+ Ye ars (1 of 1 - PCV) 11/12/2020 COVID-19 Vaccine ( - 2023-2 5 season) 2023 Influenza Adult (#1) 2023 02/27/2016 RSV Immunization or 60+ Years (1 - 1-dose 75+ series) 11/12/2030 Hepatitis C Completed 03/14/2012 Meningococcal B Vaccine Aged Out No l onger eligible based on patient's age to complete this topic Meningococcal Vaccine Aged Out No sancho joseluis eligible based on patient's age to complete this topic RSV Immunizations Under 20 Months Aged Out No longer eligible based on patient's age to complete this topic [place] [address] Care Teams Track Laying Supervisor Relationship Specialty Start Date End Date Kiara Vasquez FNP [address] [place] [address] PCP - General Nurse Practitioner Family 09/02/18
--- OUTSIDE RECORDS SUMMARY | 2024-05-03 11:37 | XMS_ITS | CONTINUITY OF CARE DOCUMENT ---
Author Name austin avila Address Unknown Organization [facility] Address [address] [facility] [address] [place] [address] Phone [phone] Care Team Providers Care Certified Ophthalmic Surgical Assistant Name Role Phone Brown Munson MD Unavailable OSCAR ESPINO MD Unavailable OSCAR ESPINO MD Unavailable PROBLEMS Condition Status Date Provider Notes Cardiology examination active Brown Munson MD Family History of Hypertension: active Karime Munson MD Chest pain active Brown Munson MD HTN essential active Brown Munson MD Abnormal nuclear stress test active Brown krueger MD ENCOUNTERS Date Type Provider Location Encounter Diag nosis - In-person encounter Office Visit Brown Munson MD [facility] Abnormal nuclear stress test - In-person encounter Office Visit Brown Munson MD [facility] Cardiology examinationFamily History of Hypertension:Chest painHTN essential VITAL SIGNS Date Observation Value Provider Body Mass Index (Ratio) 49.24 kg/m2 Karime Munson MD blood pressure, cuff size large Garo Berger blood pressure, diastolic 84 mm[Hg] Garo Berger blood pressure, systolic 112 mm[Hg] Tab reinier Berger pulse rate 72 /min Edith Berger oxygen saturation, oximetry 96 % Edith Berger weight E&M 278 [lb_av] Edith Berger respiratory rate E&M 12 /min Edith Berger height E&M 63 [in_i] Edith Berger Body Mass Index (Ratio) 52.07 kg/m2 Karime Munson MD pulse rate 63 /min [facility] blood pressure, diastolic 68 mm[Hg] [facility], systolic 118 mm[Hg] Azeb ttany [facility] oxygen saturation, oximetry 98 % [facility] blood pressure, resting Yes [facility] height E&M 63 [in_i] [facility] weight E&M 294 [lb_av] [facility] respiratory rate E&M 16 /min [facility] ALLERGIES No Known Drug Allergies RESULTS Date Observation Value Provider Reference Range Interpretation Location 3 prothrombin time (patient) 10.8 s [facility] 9.1-12.0 3 international normalized ratio (INR) 1.0 [facility] 0.9-1.2 3 lipoprotein, beta, serum, point, quantitative, calculated 109 mg/dL [facility] 0-99 High 3 HDL cholesterol, serum 72 mg/dL [facility] >39 3 triglyceride, serum, random 81 mg/dL [facility] 0-149 3 cholesterol, serum 196 mg/dL [facility] 760-298 2615/07/0 3 calcium, serum 9.1 mg/dL [facility] 8.7-10.3 3 carbon dioxide, venous blood 25 mmol/L [facility] 20-29 3 chloride, serum 104 mmol/L [facility] 96-106 3 potassium, serum 4.4 mmol/L [facility] 3.5-5.2 3 sodium, serum 142 mmol/L [facility] 087-929 0819/07/0 3 urea nitrogen/creatinin e ratio, serum 16 [facility] 12-28 3 creatinine, serum 0.75 mg/dL [facility] 0.57-1.00 3 urea nitrogen, blood 12 mg/dL [facility] 8-27 3 blood glucose, random 92 mg/dL [facility] 70-99 3 basophil count, absolute 0.0 x10E3/uL [facility] 0.0-0.2 3 Eosinophil Absolute Count 0.4 X10E3/UL [facility] 0.0-0.4 3 monocyte count, blood, automated 0.5 X10E3/UL [facility] 0.1-0.9 3 lymphocyte count, blood, automated 2.0 X10E3/UL [facility] 0.7-3.1 3 Absolute Neutrophils 4.5 X10E3/UL [facility] 1.4-7.0 3 basophils as percent of blood leukocytes 1 % [facility] Not Estab. 3 eosinophils as percent of blood leukocytes 5 % [facility] Not Estab. 3 monocytes as percent of blood leukocytes 7 % [facility] Not Estab. 3 lymphocytes as percent of blood leukocytes 26 % [facility] Not Estab. 3 neutrophils as percent of blood leukocytes 61 % [facility] Not Estab. 3 platelet count 310 X10E3/UL [facility] 878-339 9469/07/0 3 red blood cell distribution width 14.8 % [facility] 11.7-15.4 3 mean corpuscular hemoglobin concentration, RBC 31.1 G/DL [facility] 31.5-35.7 Low 3 mean corpuscular hemoglobin, RBC 24.8 pg [facility] 26.6-33.0 Low 3 mean corpuscular volume, RBC 80 fL [facility] 79-97 3 hematocrit, blood 41.1 % [facility] 34.0-46.6 3 hemoglobin, blood 12.8 g/dL [facility] 11.1-15.9 3 erythrocyte (RBC) count 5.17 X10E6/UL [facility] 3.77-5.28 3 leukocyte count, blood 7.4 X10E3/UL [facility] 3.4-10.8 HISTORY OF MEDICATION USE Medication Status Instructions Dates Provider Indications Com ments aspirin 81 mg tablet,delayed release (DR/EC) active TAKE 1 TABLET BY MOUTH DAILY Edith Berger metoprolol succinate 50 mg tablet extended release 24 hr active 1 tablet by mouth twice a day Brown Munson MD levothyroxine 150 mcg tablet active 1 tablet once a day Brown Munson MD SOCIAL HISTORY Date Observation Value Provider drug use no Brown Munson MD alcohol use, average drinks per day <1 Brown Munson MD alcohol use, type wine Brown nazario MD alcohol use yes Brown Munson MD smoking status Never smoker Brown Munson MD number of grandchildren Brown Munson MD U queta Munson MD drug use no Brown Munson MD social history E&M S moking History: P donna has never smoked. Brown Munson MD social history reviewed E&M revi ewed - no changes required Brown Munson MD alcohol use, average drinks per day <1 Lorena Valentin alcohol use, type wine Lorena B ember alcohol use yes Lorena Valentin smoking status Never smoker Lorena salomon FAMILY HISTORY Family Member Condition Son Family History of Co ngestive Heart Failure: Son Family History of Co ronary Artery Disease: Father Family History of Co ronary Artery Disease: Mother Family History of Co ngestive Heart Failure: Mother Family History of Brianna ng Cancer: Mother Family History of Hy pertension: INSURANCE PROVIDERS Payer name Policy type / Coverage type Bhanu red alliance party ID [employer] MEDICARE ADVANTAGE ST 0 003 (HMO POS) Medicare [id number] [facility] Medicaid 2 [id number] ADVANCE DIRECTIVES Name Date DISCUSSED - NO DECISION MADE TREATMENT PLAN Date Name Performer Cardiology:Plan for cath Brown krueger MD Cardiology:In light of her Sx and h/o abnormal stress test I recommend that we proceed with a cardiac cath H er Sx are typical. Brown Munson MD Cardiology: H er updated medication list for this problem includes: Aspirin 81 Mg Tablet,delayed Release (dr/ec) (Aspirin) ..... Take 1 tablet by mouth daily Metoprolol Succinate Er 100 Mg Oral Tablet Extended Release 24 Hour (Metoprolol succinate) ..... 1 tab 2x daily BP today: 112/84 P rior BP: 118/68 (12/09/2018) Brown Munson MD Cardiology:Will chec k an echo and a stress regadenosen. She has several cardiac risk factors and would like to know whether she has obstructive CAD. She also is not able to walk very far so will do a regadenosen rather than a stress nuclear. Brown Munson MD Cardiology: B P today: 118/68 Her updated medication list for this problem includes: Metoprolol Succinate Er 100 Mg Oral Tablet Extended Release 24 Hour (Metoprolol succinate) ..... 1 tab 2x daily Brown Munson MD Date Name Stress Regadenoson PROTHROMBIN TIME WIT H INR LIPID PANEL CBC (INCLUDES DIFF/P LT) BASIC METABOLIC PANE L W/EGFR Stress Regadenoson Complete Echo HISTORY OF PROCEDURES Procedure Date Procedure Name Provider Procedure Notes S tatus EKG Brown Munson MD completed Regadenoson, 4 units Brown Munson MD completed Cardiolite, 2 units Brown Munson MD completed SPECT Images Brown Munson MD complet ed Stress EKG Brown Munson MD completed EKG Brown Munson MD completed
--- OUTSIDE RECORDS SUMMARY | 2024-05-03 11:38 | XMS_ITS | Data Portability ---
[facility] Organization [facility] Address [address] [place] [address] Care Team Providers Care Science Teacher Name Role Phone CHARLENE VOGEL Primary Care Provider [phone] Assessment No assessment recorded. Plan of Treatment Reminders Order Date Submit Date Provider Last Modified By Organization Details Last Modified Time Details Appointments None recorded. Lab TSH, ultra-sensi tive, serum 2023 025 [email or web address] [facility], [address], [place], [address], 5 09:41:58 lipoprotein a, qn, serum 2023 025 JENNIFER [facility], [address], [place], [address], 5 04:08:08 HbA1c (hemoglobin A1c), blood 2023 024 JENNIFER [facility], [address], [place], [address], 4 08:23:59 CMP, serum or plasma 2023 024 JENNIFER [facility], [address], [place], [address], 4 08:23:58 CBC 2023 024 JENNIFER [facility], [address], [place], [address], 4 08:24:00 vitamin D, 25-hydroxy, total, serum 2023 024 [facility], [address], [place], [address], 4 08:24:01 vitamin B12, serum 2023 024 [facility], [address], [place], [address], 4 08:24:00 TSH, ultra-sensi tive, serum 2022 023 [facility], [address], [place], [address], 3 08:27:54 CBC w/ auto diff 2022 023 [facility], [address], [place], [address], 3 20:09:31 CMP, serum or plasma 2022 023 [facility], [address], [place], [address], 3 20:09:30 lipid panel, serum 2022 023 [facility], [address], [place], [address], 3 20:09:29 urinalysis, dipstick 2022 023 [facility], [address], [place], [address], 3 20:09:31 vitamin D, 25-hydroxy, total, serum 2022 023 [facility], [address], [place], [address], 3 08:27:55 urinalysis complete, reflex culture 2022 023 [place] [facility], [address], [place], [address], 3 13:10:22 Referral cardiologis t referral - Atypical chest pain, strong FHX of CAD 2023 024 [facility], [address], [place], [address], 4 12:13:55 nutritionis t/dietitian referral 2022 023 [facility], [address], [place], [address], 4 16:00:24 Procedures None recorded. Surgeries None recorded. Imaging US, axilla - LN? 2023 024 [facility] (Imaging), [address], [place], [address], 5 01:17:11 MAMMO, screening, bilateral 2023 024 [facility] (One Call Scheduling), [address] [place], [address], 4 12:05:49 XR, chest, 2 view - [facility] [address] [place], [address], 4 17:06:22 CT, abdomen + pelvis, w/ contrast - LUQ abdominal pain, colonoscopy 03/29/20162022 023 [facility] (One Call Scheduling), [address] [place], [address], 3 17:07:58 bone density 2022 023 [facility] (One Call Scheduling), [address] [place], [address], 3 08:13:09 US, groin - Inguinal lymphadenop athy, follow up 2022 023 [facility] (One Call Scheduling), [address] [place], [address], 3 15:28:35 Medication Orders levothyroxi ne 150 mcg tablet 2023 024 [id number], [address], [place], [place], [id number], 4 15:26:11 aspirin 81 mg tablet,gavi yed release 2023 024 [facility] #[id number], [address], [place], [place], [id number], 4 15:45:27 cyanocobala min (vit B-12) 1,000 mcg/mL injection solution 2022 023 oajao Not available 3 16:52:13 cyanocobala min (vit B-12) 1,000 mcg/mL injection solution 2022 023 [facility] #[id number], [address], [place], [place], [id number], 3 17:16:56 cyanocobala min (vit B-12) 1,000 mcg/mL injection solution 2022 023 [email or web address] Not available 3 14:05:52 Patient TargetsNo targets recorded. Patient Instructions Encounter Date Encounter Id Patient Instructions Last Modified By Organization Details Last Modified Time 08/20/2022 [id number] D/C summary Stre ss test report Colonoscopy report US Labs Lab results from [facility] Arterial studies as previously ordered Follow up in 6 weeks oajao Not available 08/20/2022 13:02:49 01/14/2023 [id number] abdominal pain: care instructions oajao Not available 01/14/2023 16:25:35 Peripheral Arterial Disease (PAD): Care Instructions oajao Not available 01/14/2023 16:22:57 A healthy lifestyle: care instructions oajao Not available 01/14/2023 16:22:57 body mass index: care instructions oajao Not available 01/14/2023 16:22:57 learning about healthy weight oajao Not available 01/14/2023 16:22:57 Colonoscopy repo rt from [facility], 2021 or [address] Bucio (Post 09/19/2022 visit) CT scan Labs DEXA Follow up in 1-2 weeks (Post CT and labs) oajao Not available 01/14/2023 20:08:00 08/19/2023 [id number] mammogram: about this test oajao Not available 08/19/2023 15:24:13 sleep apnea: car e instructions oajao Not available 08/19/2023 15:36:47 Labs (old and ne w orders) Start daily ASA Diclofenac Na PRN only, the ranal, CV and GI risks were discussed in detail. CXR Cardiology May need to continue B12 after checking her levels Sleep medicine ER with chest pain MMG Follow up in 6 weeks oajao Not available 08/19/2023 18:38:05 Diclofenac Na VA N only, the ranal, CV and GI risks were discussed in detail. 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 Refer ral for Body mass index 40+ - severely obese Referring Physician: Charlene Vogel, Internal Medicine, Encounter Date: 01/14/2023 Barrel Charrer Helper Referral for At ypical chest pain Atypical chest pain, strong FHx of CAD Atypical chest pain, strong FHX of CAD Referring Physician: Charlene Vogel, Internal Medicine, Encounter Date: 08/19/2023 Results Created Date Observation Date Name Description Value Unit Range Abnormal Flag Note LastModifiedBy Organization Detail LastModifiedTime 09/24/19 23 09/24/2022 UA WITH CULTU RE REFLE X specific gravity 1.016 1.005- 1.030 Not Available [facility] ([facility]) [address] [place], [address], 09/24/2022 13:10:22 09/24/19 23 09/24/2022 UA WITH CULTU RE REFLE X pH 6.5 5.0-7. 5 Not Available [facility] ([facility]) [address] [place], [address], 09/24/2022 13:10:22 09/24/19 23 09/24/2022 UA WITH CULTU RE REFLE X urine-color YELLOW yellow Not Available [facility] ([facility]) [address] [place], [address], 09/24/2022 13:10:22 09/24/19 23 09/24/2022 UA WITH CULTU RE REFLE X appearance CLEAR clear Not Available [facility] ([facility]) [address] [place], [address], 09/24/2022 13:10:22 09/24/19 23 09/24/2022 UA WITH CULTU RE REFLE X WBC esterase NEGATI VE negati ve Not Available [facility] ([facility]) [address] [facility], [place], [address], 09/24/2022 13:10:22 09/24/19 23 09/24/2022 UA WITH CULTU RE REFLE X protein NEGATI VE negati ve/tra ce Not Available [facility] ([facility]) [address] [facility], [place], [address], 09/24/2022 13:10:22 09/24/19 23 09/24/2022 UA WITH CULTU RE REFLE X glucose NEGATI VE negati ve Not Available [facility] ([facility]) [address] [place], [address], 09/24/2022 13:10:22 09/24/19 23 09/24/2022 UA WITH CULTU RE REFLE X ketones NEGATI VE negati ve Not Available [facility] ([facility]) [address] [place], [address], 09/24/2022 13:10:22 09/24/19 23 09/24/2022 UA WITH CULTU RE REFLE X occult blood NEGATI VE negati ve Not Available [facility] ([facility]) [address] [place], [address], 09/24/2022 13:10:22 09/24/19 23 09/24/2022 UA WITH CULTU RE REFLE X bilirubin NEGATI VE negati ve Not Available [facility] ([facility]) [address] [place], [address], 09/24/2022 13:10:22 09/24/19 23 09/24/2022 UA WITH CULTU RE REFLE X urobilinogen ,semi-qn 0.2 mg/dL 0.2-1. 0 Not Available [facility] ([facility]) [address] [place], [address], 09/24/2022 13:10:22 09/24/19 23 09/24/2022 UA WITH CULTU RE REFLE X nitrite, urine NEGATI VE negati ve Not Available [facility] ([facility]) [address] [facility], [place], [address], 09/24/2022 13:10:22 09/24/19 23 09/24/2022 UA WITH CULTU RE REFLE X microscopic examination COMMEN T Micro scopi c not indic ated and not perfo rmed. Not Available [facility] ([facility]) [address] [facility], [place], [address], 09/24/2022 13:10:22 09/24/19 23 09/24/2022 UA WITH CULTU RE REFLE X urinalysis reflex COMMEN T This speci men will not refle x to a Urine Cultu re. Not Available [facility] ([facility]) [address] [facility], [place], [address], 09/24/2022 13:10:22 02/12/20 23 02/11/2023 LIPID PANEL cholesterol, total 193 mg/dL 100-19 9 Not Available [facility] [address] [place], [address], 02/11/2023 20:09:29 02/12/20 23 02/11/2023 LIPID PANEL triglyceride s 72 mg/dL 0-149 Not Available [facility] Department [address] [place], [address], 02/11/2023 20:09:29 02/12/20 23 02/11/2023 LIPID PANEL HDL cholesterol 75 mg/dL 40-999 Not Available [facility] Department [address] [place], [address], 02/11/2023 20:09:29 02/12/20 23 02/11/2023 LIPID PANEL VLDL cholesterol danielle 14 mg/dL 5-40 Not Available [facility] Department [address] [place] [address], [address], 02/11/2023 20:09:29 02/12/20 23 02/11/2023 LIPID PANEL LDL chol calc (nih) 114 mg/dL 0-99 above high normal Not Available [facility] [address] [place] [address], [address], 02/11/2023 20:09:29 02/12/20 23 02/11/2023 COMP. METAB OLIC PANEL (14) glucose 92 mg/dL 70-99 Not Available [facility] [address] [place] [address], [address], 02/11/2023 20:09:30 02/12/20 23 02/11/2023 COMP. METAB OLIC PANEL (14) BUN 16 mg/dL 8-27 Not Available [facility] [address] [place] [address], [address], 02/11/2023 20:09:30 02/12/20 23 02/11/2023 COMP. METAB OLIC PANEL (14) creatinine 0.77 mg/dL 0.76-1 .27 Not Available [facility] [address] [place] [address], [address], 02/11/2023 20:09:30 02/12/20 23 02/11/2023 COMP. METAB OLIC PANEL (14) eGFR 84 >=60 Units for eGFR value s are mL/mi n/1.7 3 The eGFR Calcu latio n has not been valid ated for patie nts under the age of 18. If test resul ts are displ ayed for a patie nt under the age of 18, disre meenu that value . Not Available [facility] [address] [place] [address], [address], 02/11/2023 20:09:30 02/12/20 23 02/11/2023 COMP. METAB OLIC PANEL (14) BUN/creatini ne ratio 20 10-28 Not Available [facility] [address] [place], [address], 02/11/2023 20:09:30 02/12/20 23 02/11/2023 COMP. METAB OLIC PANEL (14) sodium 145 mmol/ L 134-14 4 above high normal Not Available [facility] [address] [place], [address], 02/11/2023 20:09:30 02/12/20 23 02/11/2023 COMP. METAB OLIC PANEL (14) potassium 4.7 mmol/ L 3.5-5. 2 Not Available [facility] [address] [place] [address], [address], 02/11/2023 20:09:30 02/12/20 23 02/11/2023 COMP. METAB OLIC PANEL (14) chloride 105 mmol/ L 96-106 Not Available [facility] [address] [place] [address], [address], 02/11/2023 20:09:30 02/12/20 23 02/11/2023 COMP. METAB OLIC PANEL (14) carbon dioxide, total 29 mmol/ L 20-29 Not Available [facility] [address] [place], [address], 02/11/2023 20:09:30 02/12/20 23 02/11/2023 COMP. METAB OLIC PANEL (14) calcium 8.5 mg/dL 8.7-10 .3 below low normal Not Available [facility] [address] [place], [address], 02/11/2023 20:09:30 02/12/20 23 02/11/2023 COMP. METAB OLIC PANEL (14) protein, total 6.5 g/dL 6.0-8. 5 Not Available [facility] [address] [place], [address], 02/11/2023 20:09:30 02/12/20 23 02/11/2023 COMP. METAB OLIC PANEL (14) albumin 3.7 g/dL 3.8-4. 8 below low normal Not Available [facility] [address] [place], [address], 02/11/2023 20:09:30 02/12/20 23 02/11/2023 COMP. METAB OLIC PANEL (14) globulin, total 2.8 g/dL 1.5-4. 5 Not Available [facility] [address] [place], [address], 02/11/2023 20:09:30 02/12/20 23 02/11/2023 COMP. METAB OLIC PANEL (14) A/G ratio 1.0 1.2-2. 2 below low normal Not Available [facility] [address] [place] [address], [address], 02/11/2023 20:09:30 02/12/20 23 02/11/2023 COMP. METAB OLIC PANEL (14) bilirubin, total 0.2 mg/dL 0.0-1. 2 Not Available [facility] [address] [place] [address], [address], 02/11/2023 20:09:30 02/12/20 23 02/11/2023 COMP. METAB OLIC PANEL (14) alkaline phosphatase 80 IU/L 44-121 Not Available [facility] Department [address] [place], [address], 02/11/2023 20:09:30 02/12/20 23 02/11/2023 COMP. METAB OLIC PANEL (14) AST (SGOT) 10 IU/L 0-40 Not Available [facility] [address] [place] [address], [address], 02/11/2023 20:09:30 02/12/20 23 02/11/2023 COMP. METAB OLIC PANEL (14) ALT (SGPT) 6 IU/L 0-32 Not Available [facility] [address] [place] [address], [address], 02/11/2023 20:09:30 02/12/20 23 02/11/2023 CBC WITH DIFFE RENTI AL/PL ATELE T WBC 7.3 x10e3 /uL 3.4-10 .8 Not Available [facility] [address] [place], [address], 02/11/2023 20:09:31 02/12/20 23 02/11/2023 CBC WITH DIFFE RENTI AL/PL ATELE T RBC 4.54 x10e6 /uL 3.77-5 .28 Not Available [facility] [address] [place], [address], 02/11/2023 20:09:31 02/12/20 23 02/11/2023 CBC WITH DIFFE RENTI AL/PL ATELE T hemoglobin 11.2 g/dL 11.1-1 5.9 Not Available [facility] [address], [place], [address], 02/11/2023 20:09:31 02/12/20 23 02/11/2023 CBC WITH DIFFE RENTI AL/PL ATELE T hematocrit 36.6 % 34.0-4 6.6 Not Available [facility] [address] [place], [address], 02/11/2023 20:09:31 02/12/20 23 02/11/2023 CBC WITH DIFFE RENTI AL/PL ATELE T MCV 81 fL 79-97 Not Available [facility] [address] [place], [address], 02/11/2023 20:09:31 02/12/20 23 02/11/2023 CBC WITH DIFFE RENTI AL/PL ATELE T MCH 24.7 pg 26.6-3 3.0 below low normal Not Available [facility] [address] [place], [address], 02/11/2023 20:09:31 02/12/20 23 02/11/2023 CBC WITH DIFFE RENTI AL/PL ATELE T MCHC 30.6 g/dL 31.5-3 5.7 below low normal Not Available [facility] [address] [place], [address], 02/11/2023 20:09:31 02/12/20 23 02/11/2023 CBC WITH DIFFE RENTI AL/PL ATELE T RDW 15.8 % 11.5-1 4.5 above high normal Not Available [facility] [address] [place], [address], 02/11/2023 20:09:31 02/12/20 23 02/11/2023 CBC WITH DIFFE RENTI AL/PL ATELE T platelets 251 x10e3 /uL 150-45 0 Not Available [facility] [address] [place], [address], 02/11/2023 20:09:31 02/12/20 23 02/11/2023 CBC WITH DIFFE RENTI AL/PL ATELE T neutrophils 62 % notest b. Not Available [facility] [address] [place], [address], 02/11/2023 20:09:31 02/12/20 23 02/11/2023 CBC WITH DIFFE RENTI AL/PL ATELE T lymphs 26 % notest b. Not Available [facility] [address] [place], [address], 02/11/2023 20:09:31 02/12/20 23 02/11/2023 CBC WITH DIFFE RENTI AL/PL ATELE T monocytes 7 % notest b. Not Available [facility] [address] [place], [address], 02/11/2023 20:09:31 02/12/20 23 02/11/2023 CBC WITH DIFFE RENTI AL/PL ATELE T eos 5 % notest b. Not Available [facility] [address] [place], [address], 02/11/2023 20:09:31 02/12/20 23 02/11/2023 CBC WITH DIFFE RENTI AL/PL ATELE T basos 1 % notest b. Not Available [facility] [address] [place], [address], 02/11/2023 20:09:31 02/12/20 23 02/11/2023 CBC WITH DIFFE RENTI AL/PL ATELE T neutrophils (absolute) 4.5 x10e3 /uL 1.4-7. 0 Not Available [facility] [address] [place], [address], 02/11/2023 20:09:31 02/12/20 23 02/11/2023 CBC WITH DIFFE RENTI AL/PL ATELE T lymphs (absolute) 1.9 x10e3 /uL 0.7-3. 1 Not Available [facility] [address] [place], [address], 02/11/2023 20:09:31 02/12/20 23 02/11/2023 CBC WITH DIFFE RENTI AL/PL ATELE T monocytes(ab solute) 0.5 x10e3 /uL 0.1-0. 9 Not Available [facility] [address] [place], [address], 02/11/2023 20:09:31 02/12/20 23 02/11/2023 CBC WITH DIFFE RENTI AL/PL ATELE T eos (absolute) 0.3 x10e3 /uL 0.0-0. 4 Not Available [facility] [address] [place], [address], 02/11/2023 20:09:31 02/12/20 23 02/11/2023 CBC WITH DIFFE RENTI AL/PL ATELE T baso (absolute) 0.0 x10e3 /uL 0.0-0. 2 Not Available [facility] [address] [place], [address], 02/11/2023 20:09:31 02/12/20 23 02/11/2023 CBC WITH DIFFE RENTI AL/PL ATELE T immature granulocytes 0.3 % notest b. Not Available [facility] [address] [place], [address], 02/11/2023 20:09:31 02/12/20 23 02/11/2023 CBC WITH DIFFE RENTI AL/PL ATELE T immature grans (abs) 0.0 x10e3 /uL 0.0-0. 1 Not Available [facility] [address] [place], [address], 02/11/2023 20:09:31 02/12/20 23 02/11/2023 CBC WITH DIFFE RENTI AL/PL ATELE T NRBC 0 % 0-0 Not Available [facility] [address] [place], [address], 02/11/2023 20:09:31 02/12/20 23 02/12/2023 TSH RFX ON ABNOR MAL TO FREE T4 TSH 6.240 uIU/m L 0.450- 4.500 above high normal Not Available [facility] ([facility]) [address] [facility], [place], [address], 02/12/2023 08:27:54 02/12/2002/12/2023 VITAM IN D, 25-HY DROXY vitamin D, 25-hydroxy 38.5 NG/mL 30.0-1 00.0 Vitam in D defic iency has been defin ed by the Insti tute of Medic ine and an Endoc rine Socie ty pract ice guide line as a level of serum 25-OH vitam in D less than 20 ng/mL (1,2) . The Endoc rine Socie ty went on to furth er defin e vitam in D insuf ficie ncy as a level betwe en 21 and 29 ng/mL (2). 1. IOM (Inst itute of Medic ine). 2010. Sunshine ry refer chelsie tegan es for calci um and DYogi middleton [place]: [facility] . 2. Holic k [place], Binkl ey [place], Bisch off-F errar i LALA, et al. Evalu ation , treat ment, and preve ntion of vitam in D defic iency : an Endoc rine Socie ty clini danielle pract ice guide line. JCEM. 2010; 96(7) :1911 -30. Not Available [facility] ([facility]) [address] [place], [address], 02/12/2023 08:27:55 02/12/20 23 02/12/2023 T4F T4,free (direct) 1.17 NG/dL 0.82-1 .77 Not Available [facility] ([facility]) [address] [place], [address], 02/12/2023 08:27:55 02/12/20 23 02/11/2023 URINA LYSIS , ROUTI NE specific gravity 1.015 1.005- 1.030 Not Available [facility] [address] [place] [address], [address], 02/11/2023 20:09:30 02/12/20 23 02/11/2023 URINA LYSIS , ROUTI NE pH 7.0 5.0-7. 0 Not Available [facility] [address] [place], [address], 02/11/2023 20:09:30 02/12/20 23 02/11/2023 URINA LYSIS , ROUTI NE urine-color YELLOW yellow Not Available [facility] Department [address] [place], [address], 02/11/2023 20:09:30 02/12/20 23 02/11/2023 URINA LYSIS , ROUTI NE appearance CLEAR Not Available [facility] Department [address], [place], [address], 02/11/2023 20:09:30 02/12/20 23 02/11/2023 URINA LYSIS , ROUTI NE WBC esterase Commen t NEGAT FLOR Not Available [facility] [address], [place], [address], 02/11/2023 20:09:30 02/12/20 23 02/11/2023 URINA LYSIS , ROUTI NE protein Commen t NEGAT FLOR Not Available [facility] [address] [place], [address], 02/11/2023 20:09:30 02/12/20 23 02/11/2023 URINA LYSIS , ROUTI NE glucose Commen t NEGAT FLOR Not Available [facility] [address] [place], [address], 02/11/2023 20:09:30 02/12/20 23 02/11/2023 URINA LYSIS , ROUTI NE ketones Commen t NEGAT FLOR Not Available [facility] [address], [place], [address], 02/11/2023 20:09:30 02/12/20 23 02/11/2023 URINA LYSIS , ROUTI NE occult blood Commen t NEGAT FLOR Not Available [facility] [address] [place], [address], 02/11/2023 20:09:30 02/12/20 23 02/11/2023 URINA LYSIS , ROUTI NE bilirubin Commen t NEGAT FLOR Not Available [facility] [address] [place], [address], 02/11/2023 20:09:30 02/12/20 23 02/11/2023 URINA LYSIS , ROUTI NE urobilinogen ,semi-qn 0.2 eu/dL 0.2-1. 0 Not Available [facility] [address], [place], [address], 02/11/2023 20:09:30 02/12/20 23 02/11/2023 URINA LYSIS , ROUTI NE nitrite, urine Commen t negati ve NEGAT FLOR Not Available [facility] [address], [place], [address], 02/11/2023 20:09:30 09/05/19 24 09/06/2023 COMP. METAB OLIC PANEL (14) glucose 98 mg/dL 70-99 Not Available [facility] ([facility]) [address] [place], [address], 09/06/2023 08:23:58 09/05/19 24 09/06/2023 COMP. METAB OLIC PANEL (14) BUN 10 mg/dL 8-27 Not Available [facility] ([facility]) [address] [place], [address], 09/06/2023 08:23:58 09/05/19 24 09/06/2023 COMP. METAB OLIC PANEL (14) creatinine 0.66 mg/dL 0.57-1 .00 Not Available [facility] ([facility]) [address] [facility], [place], [address], 09/06/2023 08:23:58 09/05/19 24 09/06/2023 COMP. METAB OLIC PANEL (14) eGFR 96 mL/mi n/1.7 3 >59 Not Available [facility] ([facility]) [address] [place], [address], 09/06/2023 08:23:58 09/05/19 24 09/06/2023 COMP. METAB OLIC PANEL (14) BUN/creatini ne ratio 15 03-06 Not Available [facility] ([facility]) [address] [place], [address], 09/06/2023 08:23:58 09/05/19 24 09/06/2023 COMP. METAB OLIC PANEL (14) sodium 141 mmol/ L 134-14 4 Not Available [facility] ([facility]) [address] [place], [address], 09/06/2023 08:23:58 09/05/19 24 09/06/2023 COMP. METAB OLIC PANEL (14) potassium 4.4 mmol/ L 3.5-5. 2 Not Available [facility] ([facility]) [address] [place], [address], 09/06/2023 08:23:58 09/05/19 24 09/06/2023 COMP. METAB OLIC PANEL (14) chloride 105 mmol/ L 96-106 Not Available [facility] ([facility]) [address] [facility], [place], [address], 09/06/2023 08:23:58 09/05/19 24 09/06/2023 COMP. METAB OLIC PANEL (14) carbon dioxide, total 24 mmol/ L 20-29 Not Available [facility] ([facility]) [address] [place], [address], 09/06/2023 08:23:58 09/05/19 24 09/06/2023 COMP. METAB OLIC PANEL (14) calcium 8.9 mg/dL 8.7-10 .3 Not Available [facility] ([facility]) [address] [place], [address], 09/06/2023 08:23:58 09/05/19 24 09/06/2023 COMP. METAB OLIC PANEL (14) protein, total 7.1 g/dL 6.0-8. 5 Not Available [facility] ([facility]) [address] [place], [address], 09/06/2023 08:23:58 09/05/19 24 09/06/2023 COMP. METAB OLIC PANEL (14) albumin 3.8 g/dL 3.9-4. 9 below low normal Not Available [facility] ([facility]) [address] [facility] [place], [address], 09/06/2023 08:23:58 09/05/19 24 09/06/2023 COMP. METAB OLIC PANEL (14) globulin, total 3.3 g/dL 1.5-4. 5 Not Available [facility] ([facility]) [address] [place], [address], 09/06/2023 08:23:58 09/05/19 24 09/06/2023 COMP. METAB OLIC PANEL (14) bilirubin, total 0.2 mg/dL 0.0-1. 2 Not Available [facility] ([facility]) [address] [facility] [place], [address], 09/06/2023 08:23:58 09/05/19 24 09/06/2023 COMP. METAB OLIC PANEL (14) alkaline phosphatase 94 IU/L 44-121 Not Available [facility] ([facility]) [address] [place], [address], 09/06/2023 08:23:58 09/05/19 24 09/06/2023 COMP. METAB OLIC PANEL (14) AST (SGOT) 11 IU/L 0-40 Not Available [facility] ([facility]) [address] [place], [address], 09/06/2023 08:23:58 09/05/19 24 09/06/2023 COMP. METAB OLIC PANEL (14) ALT (SGPT) 7 IU/L 0-32 Not Available [facility] ([facility]) [address] [place], [address], 09/06/2023 08:23:58 09/05/19 24 09/06/2023 HEMOG LOBIN A1C hemoglobin A1C 5.9 % 4.8-5. 6 above high normal Predi abete s: 5.7 - 6.4 Diabe shan: >6.4 Glyce ronnie contr ol for adult s with diabe shan: <7.0 Not Available [facility] ([facility]) [address] [facility], [place], [address], 09/06/2023 08:23:59 09/05/19 24 09/06/2023 VITAM IN B12 vitamin B12 215 pg/mL 232-12 45 below low normal Not Available [facility] ([facility]) [address] [facility], [place], [address], 09/06/2023 08:24:00 09/05/1909/06/2023 CBC, PLATE LET, NO DIFFE RENTI AL WBC 6.0 x10e3 /uL 3.4-10 .8 Not Available [facility] ([facility]) [address] [place], [address], 09/06/2023 08:24:00 09/05/19 24 09/06/2023 CBC, PLATE LET, NO DIFFE RENTI AL RBC 4.98 x10e6 /uL 3.77-5 .28 Not Available [facility] ([facility]) [address] [place], [address], 09/06/2023 08:24:00 09/05/1909/06/2023 CBC, PLATE LET, NO DIFFE RENTI AL hemoglobin 12.3 g/dL 11.1-1 5.9 Not Available [facility] ([facility]) [address] [place], [address], 09/06/2023 08:24:00 09/05/1909/06/2023 CBC, PLATE LET, NO DIFFE RENTI AL hematocrit 39.8 % 34.0-4 6.6 Not Available [facility] ([facility]) [address] [place], [address], 09/06/2023 08:24:00 09/05/1909/06/2023 CBC, PLATE LET, NO DIFFE RENTI AL MCV 80 fL 79-97 Not Available [facility] ([facility]) [address] [place], [address], 09/06/2023 08:24:00 09/05/19 24 09/06/2023 CBC, PLATE LET, NO DIFFE RENTI AL MCH 24.7 pg 26.6-3 3.0 below low normal Not Available [facility] ([facility]) [address] [place], [address], 09/06/2023 08:24:00 09/05/1909/06/2023 CBC, PLATE LET, NO DIFFE RENTI AL MCHC 30.9 g/dL 31.5-3 5.7 below low normal Not Available [facility] ([facility]) [address] [place], [address], 09/06/2023 08:24:00 09/05/1909/06/2023 CBC, PLATE LET, NO DIFFE RENTI AL RDW 15.3 % 11.7-1 5.4 Not Available [facility] ([facility]) [address] [place], [address], 09/06/2023 08:24:00 09/05/1909/06/2023 CBC, PLATE LET, NO DIFFE RENTI AL platelets 291 x10e3 /uL 150-45 0 Not Available [facility] ([facility]) [address] [place], [address], 09/06/2023 08:24:00 09/05/1909/06/2023 VITAM IN D, 25-HY DROXY vitamin D, 25-hydroxy 35.8 NG/mL 30.0-1 00.0 Vitam in D defic iency has been defin ed by the Insti tute of Medic ine and an Endoc rine Socie ty pract ice guide line as a level of serum 25-OH vitam in D less than 20 ng/mL (1,2) . The Endoc rine Socie ty went on to furth er defin e vitam in D insuf ficie ncy as a level betwe en 21 and 29 ng/mL (2). 1. IOM (Inst itute of Medic ine). 2010. Dieta ry refer ence intak es for calci um and D. Christin middleton [place]: [facility] . 2. Ke salomon [place], Pollo oliver [place], Ofelia off-F errar i LALA, et al. Evalu ation , treat ment, and preve ntion of vitam in D defic iency : an Endoc rine Socie ty clini danielle pract ice guide line. JCEM. 2010; 96(7) :1911 -30. Not Available [facility] ([facility]) [address] [facility], [place], [address], 09/06/2023 08:24:01 12/31/19 24 01/01/2024 TSH RFX ON ABNOR MAL TO FREE T4 TSH 0.985 uIU/m L 0.450- 4.500 Not Available [facility] ([facility]) [address] [facility], [place], [address], 01/01/2024 11:14:31 08/17/19 23 08/16/2022 CT, abdom en + pelvi s, w/ contr ast No observ ation record ed. [facility] [address] [place], [address], 08/24/2022 17:49:21 09/03/1909/02/2022 US, duple x, arter ial, lower extre mity No observ ation record ed. [facility] [address] [place], [address], 01/14/2023 16:13:12 09/03/19 23 09/02/2022 US, groin No observ ation record ed. [facility] ([facility]) [address] [place], [address], 01/14/2023 16:13:12 01/30/20 23 01/28/2023 bone densi ty No observ ation record ed. [facility] [address] [place], [address], 02/10/2023 13:35:52 02/06/20 23 02/05/2023 CT, abdom en + pelvi s, w/ contr ast No observ ation record ed. [facility] [address] [place], [address], 02/13/2023 09:15:21 09/12/19 24 09/12/2023 myoca rdial perfu ian study w/ eject ion fract ion (PROC ) No observ ation record ed. [facility] [address], [place], [address], 02/10/2024 15:16:39 09/26/19 24 09/26/2023 MAMMO , scree garfield, bilat eral No observ ation record ed. [facility] [address] [place], [address], 02/10/2024 15:16:39 01/06/20 24 01/06/2024 PFT, compl ete No observ ation record ed. [address], [place], [address], 02/10/2024 15:16:39 03/23/19 25 03/22/2024 US, axill a No observ ation record ed. [facility] [address], [place], [address], 03/30/2024 08:58:01 Result Notes None recorded. Problems Name Problem SNOMED Code Status Onset Date Resolution Date Notes Provider Name and Address Organization Details Recorded Time Acquired hypothyroi dism 877266888 Active 2018 Not Available [facility] 3 06:33:13 History of hepatitis C 3941856953505 1 Active 2018 Not Available [facility] 3 06:33:14 Osteoarthr itis of knee 741408766 Active 2018 Not Available [facility] 3 06:33:14 Vertigo 627902062 Active 2018 Not Available [facility] 3 06:33:14 Benign essential hypertensi on 8241857 Active 2018 Not Available [facility] 3 06:33:14 Foot pain 37479113 Active 2018 Not Available [facility] 3 06:33:14 Transfusio n of blood product declined for mandaeism reason 586353552 Active 2018 Not Available [facility] 3 06:33:14 Gastroesop hageal reflux disease 719960744 Active 2019 Not Available [facility] 3 06:33:14 Disorder of vitamin B12 621322818 Active 2019 Not Available [facility] 3 06:33:14 Peripheral vascular disease 907386726 Active 2020 Not Available [facility] 3 06:33:14 Allergy to contrast media 151976190 Active 2022 Not Available [facility] 3 06:33:14 Peripheral arterial occlusive disease 163577171 Active 2022 Not Available [facility] 3 06:33:14 Family history of malignant neoplasm of pancreas 412265623 Active 2022 Not Available [facility] 3 06:33:14 Obstructiv e sleep apnea syndrome 96216748 Active 2023 Charlene Vogel MD Attn: Accounting ,[address] [place], [address] , [place] [facility] 4 18:36:32 Family history of Cardiovasc ular disease 579617915 Active 2023 Charlene Vogel MD Attn: Accounting ,[address] [place], [address] , [place] [facility] 4 18:36:35 Sickle cell trait 37190804 Active Not Available [facility] 3 06:33:14 Family history of Gallbladde r disease 132464198 Active Not Available [facility] 3 06:33:14 Chest pain 59837824 Active Not Available [facility] 3 06:33:14 Dizziness 810296483 Active Not Available [facility] 3 06:33:14 Hypertensi ve disorder 15212931 Active Not Available [facility] 3 06:33:14 Arthritis 7728676 Active Not Available [facility] 3 06:33:14 Problem Notes None recorded. Procedures Surgical History Date Name Laterality Status Provider Name and Address Organization Details Recorded Time 02/15/20 22 colonoscopy completed Charlene Vogel MD Attn: Accounting, [address] [place], [address], [facility] 01/27/2023 08:42:31 02/15/20 21 OPEN RECURRENT INCISIONAL HERNIA REPAIR (SURG) completed Charlene Vogel MD Attn: Accounting, [address] [place], [address], [facility] 02/15/2021 09:18:29 02/19/20 19 Date of Last Pap Smear completed Yin Lacy MA [facility] 02/18/2019 14:27:56 10/27/19 19 Most Recent Mammogram completed Yin Lacy MA [facility] 02/18/2019 14:28:01 10/27/19 19 Date of Last Mammogram completed Yin Lacy MA [facility] 02/18/2019 14:28:21 07/12/19 17 capsule endoscopy completed Charlene Vogel MD Attn: Accounting, [address] [place], [address], [facility] 07/12/2020 18:43:43 07/11/19 17 EGD completed Charlene Vogel MD Attn: Accounting, [address] [place], [address], [facility] 07/12/2020 18:43:15 03/29/19 17 colonoscopy completed Charlene Vogel MD Attn: Accounting, [address], [place], [address], [facility] 07/17/2021 14:25:45 03/10/18 83 Tubal Ligation completed [facility] 12/26/2014 14:49:26 03/10/18 82 Dilation and Curettage completed [facility] 12/26/2014 14:49:52 03/10/18 80 Caesarean Section completed [facility] 12/26/2014 14:49:26 03/10/18 78 Caesarean Section completed Jay Fenton MA [facility] 12/26/2014 14:40:40 Hernia Repair completed Charlene Vogel MD Attn: Accounting, [address] [place], [address], [facility] 09/15/2018 14:15:19 cholecystectomy completed Charlene Vogel MD Attn: Accounting, [address] [place], [address], [facility] 09/15/2018 14:15:54 Imaging Results Imaging Date Name Status [facility] Details LastModified Time 08/16/2022 CT, abdomen + pelvis, w/ contrast completed [facility] [address] [place], [address], 08/24/2022 17:49:21 09/02/2022 US, duplex, arterial, lower extremity completed [facility] [address] [place], [address], 01/14/2023 16:13:12 09/02/2022 US, groin completed [facility] ([facility]) [address] [place], [address], 01/14/2023 16:13:12 01/28/2023 bone density completed [facility] [address] [place], [address], 02/10/2023 13:35:52 02/05/2023 CT, abdomen + pelvis, w/ contrast completed [facility] [address] [place], [address], 02/13/2023 09:15:21 09/12/2023 myocardial perfusion study w/ ejection fraction (PROC) completed [facility] [address], [place], [address], 02/10/2024 15:16:39 09/26/2023 MAMMO, screening, bilateral completed [facility] [address] [place], [address], 02/10/2024 15:16:39 01/06/2024 PFT, complete completed [address], [address], 02/10/2024 15:16:39 03/22/2024 US, axilla completed [address], [address], 03/30/2024 08:58:01 Procedure Notes None recorded. Medical Equipment None Reported. Allergies Allergen ID Allergen Name Allergen Category Reaction Reaction Severity Criticality Documentation Date Start Date Code Code System Note Provider Name and Address Organization Details Recorded Time 829587 shellfish derived food,medi cation Not available Not available Not available 09/15/2018 20614 UNK Not Available Not Available Not Available Medications Name Sig Start Date Stop Date Status Note LastModified by Organization Details LastModified Time cyclobenz aprine 10 mg tablet TAKE 1 TABLET BY MOUTH EVERY 6 TO 8 HOURS FOR 14 DAYS NEEDED active Not Available Not Available No t Available prednison e 10 mg tablet 05/09 completed Not Available Not Available Not Available BD Insulin Syringe 1 mL 25 x 1 USE ONCE A MONTH FOR B12 INJECTIO NS active Not Available Not Available No t Available benzonata te 200 mg capsule TAKE 1 CAPSULE BY MOUTH THREE TIMES DAILY FOR 5 DAYS NEEDED 08/20 completed Not Available Not Available Not Available minocycli ne 100 mg capsule 09/15 completed Not Available Not Available Not Available meloxicam 15 mg tablet 09/15 completed Not Available Not Available Not Available peg-elect rolyte solution 420 gram oral solution MIX AND DRINK 1/2 AT 5 PM ON 02/13 AND 1/2 AT 5 AM ON 02/14 completed Not Available Not Available Not Available aspirin 81 mg tablet,de layed release TAKE 1 TABLET BY MOUTH DAILY active Not Available Not Available No t Available tramadol 50 mg tablet Take 2 tablets every 8 hours by oral route as directed for 7 days. 03/11 completed Not Available Not Available Not Available triamcino lone acetonide 0.1 % topical cream active Not Available Not Available Not Available levothyro xine 100 mcg tablet TAKE 1 TABLET BY MOUTH EVERY DAY DIRECTED (Labs as ordered) 11/02 completed Not Available Not Available Not Available meclizine 25 mg tablet Take 1 tablet twice a day by oral route. 03/11 completed Not Available Not Available Not Available pantopraz ole 40 mg tablet,de layed release Take 1 tablet every day by oral route for 90 days. active PRN Not Available Not Available No t Available erythromy earl 5 mg/gram (0.5 %) eye ointment active Not Available Not Available Not Available cyanocoba maria c (vit B-12) 1,000 mcg/mL injection solution Inject 1 mL every 4 weeks by subcutan eous route as directed for 84 days. 2022 active Not Available Not Available Not Avai lable levothyro xine 125 mcg tablet TAKE 1 TABLET BY MOUTH EVERY DAY 02/12 completed Labs 02/12/20 23 TSH 6.24, on Levothyr oxine 125 mcg po dailyInc rease Levothyr oxine to 150 mcg po dailyLab s in 6 weeks Not Available Not Available Not Available prednison e 50 mg tablet TAKE 1 TABLET BY MOUTH EVERY 6 HOURS FOR 1 DAY 08/18 completed Not Available Not Available Not Available levothyro xine 150 mcg tablet Take 1 tablet every day by oral route as directed for 90 days, for Hypothyr oidism. active Not Available Not Available No t [...] completed Not Available Not Available Not Available albuterol sulfate HFA 90 mcg/actua tion aerosol inhaler Inhale 2 puffs every 4-6 hours by inhalati on route as directed for 30 days. 03/14 completed Not Available Not Available Not Available levothyro xine 112 mcg tablet TAKE 1 TABLET BY MOUTH DAILY 03/14 completed Not Available Not Available Not Available oxycodone 5 mg tablet TAKE 1 TABLET BY MOUTH EVERY 4 HOURS NEEDED FOR PAIN. MAY REPEAT DOSE ONCE IN 30 MINUTES IF ADDITION AL PAIN RELIEF NEEDED 05/09 completed Not Available Not Available Not Available metoprolo l tartrate 25 mg tablet Take 1 tablet twice a day by oral route for 15 days. active Taking it once a day Not Available Not Available Not Available Aleve 03/14 completed Not Available Not Available Not Available Calcium 500 + D (D3) 02/20 completed Not Available Not Available Not Available levothyro xine 112 mcg capsule Take 1 tablet by oral route. 03/14 completed Not Available Not Available Not Available B12 OTC 12/14 completed Not Available Not Available Not Available Fluzone Quad (PF) 60 mcg (15 mcg x 4)/0.5 mL IM syringe ADM 0.5ML IM UTD 02/20 completed Not Available Not Available Not Available Paxlovid 300 mg (150 mg x 2)-100 mg tablets in a dose pack TK 2 NIRMATRE LVIR TS AND 1 RITONAVI R T TOGETHER PO BID FOR 5 DAYS BID FOR 5 DAYS DIRECTED 08/20 completed Not Available Not Available Not Available Vitals Date Recorded Body height Body mass index (BMI) Body weight Respiratory rate Oxygen saturation Oxygen saturation in Arterial blood by Pulse oximetry Heart rate Systolic blood pressure Diastolic blood pressure Provider Name and Address Organization Details Last Updated DateTime 3 160.02 cm 47.3 kg/m2 494678. 16 g 16 /min 97 % 97 % 64 /min 126 mm[Hg] 76 mm[Hg] Myesha Armando [place] [facility] 3 12:35:26 Date Recorded Body height Body mass index (BMI) Body weight Respiratory rate Heart rate Oxygen saturation Oxygen saturation in Arterial blood by Pulse oximetry Systolic blood pressure Diastolic blood pressure Provider Name and Address Organization Details Last Updated DateTime 3 160.02 cm 48 kg/m2 918615. 96 g 18 /min 60 /min 99 % 99 % 124 mm[Hg] 82 mm[Hg] Myesha Armando MA [facility] 3 16:02:58 Date Recorded Body height Body mass index (BMI) Body weight Oxygen saturation Oxygen saturation in Arterial blood by Pulse oximetry Heart rate Respiratory rate Systolic blood pressure Diastolic blood pressure Provider Name and Address Organization Details Last Updated DateTime 4 160.02 cm 49.6 kg/m2 029463. 86 g 98 % 98 % 66 /min 16 /min 114 mm[Hg] 70 mm[Hg] Myesha Armando MA [facility] 4 15:10:14 Date Recorded Body height Body mass index (BMI) Body weight Heart rate Respiratory rate Oxygen saturation Oxygen saturation in Arterial blood by Pulse oximetry Systolic blood pressure Diastolic blood pressure Provider Name and Address Organization Details Last Updated DateTime 4 160.02 cm 49.6 kg/m2 258930. 86 g 67 /min 18 /min 98 % 98 % 118 mm[Hg] 74 mm[Hg] AUGUSTUS Funes [facility] 4 15:02:50 Social History Question Answer Notes LastModified by Organizat ion Details LastModified Time Tobacco Smoking Status Former Smoker Quit age 30 [place] [facility] 12/26/2014 14:54:53 Do You Have An Advance Directive? No Information not available 07/12/2020 What Is Your Level Of Alcohol Consumption? Occasional Social Drinker Information not available 12/26/2014 Are You Blind Or Do You Have Difficulty Seeing? No Information not available 07/12/2020 What Is Your Level Of Caffeine Consumption? Occasional Information not available 07/12/2020 How Much Tobacco Do You Chew? None Information not available 09/15/2018 In The 14 Days Before Symptom Onset, Have You Had Close Contact With A Laboratory-confi rmed COVID-19 While That Case Was Ill? No Information not available 07/12/2020 In The 14 Days Before Symptom Onset, Have You Had Close Contact With A Person Who Is Under Investigation For COVID-19 While That Person Was Ill? No Information not available 07/12/2020 Have You Been To An Area Known To Be High Risk For COVID-19? Yes Information not available 07/12/2020 Are You Currently Employed? No Information not available 12/26/2014 Are You Deaf Or Do You Have Serious Difficulty Hearing? No Information not available 07/12/2020 What Type Of Diet Are You Following? REGULAR Information not available 09/15/2018 Which Illicit Or Recreational Drugs Have You Used? Patient Denied. Information not available 12/26/2014 Do You Or Have You Ever Used E-cigarettes Or Vape? Never Used Electronic Cigarettes Information not available 02/21/2020 Education 12 1 Year Of College Information not available 12/26/2014 Are There Any Guns Present In Your Home? No Information not available 09/15/2018 Hard Of Hearing Or Deaf In One Or Both Ears? No Information not available 09/15/2018 Legally Blind In One Or Both Eyes? No Information not available 09/15/2018 Live Alone Or With Others? Alone Information not available 12/26/2014 What Was The Date Of Your Most Recent Tobacco Screening? 08/19/2023 Information not available 08/19/2023 How Many Children Do You Have? 1 Information not available 12/26/2014 Performs Monthly Self-breast Exam? No Information not available 12/26/2014 What Is Your Relationship Status? Information not available 12/26/2014 Do You Use Your Seat Belt Or Car Seat Routinely? Yes Information not available 07/12/2020 Seat Belts Used Routinely No Information not available 12/26/2014 Are You Sexually Active? No Information not available 12/26/2014 Smoke Alarm In Home Yes Information not available 09/15/2018 Do You Have Smoke And Carbon Monoxide Detectors In Your Home? Yes Information not available 07/12/2020 How Much Tobacco Do You Smoke? No [email or web address] Information not available 12/26/2014 Has Tobacco Cessation Counseling Been Provided? No delmer Information not available 09/15/2018 On What Date Was Tobacco Cessation Counseling Provided? 03/14/2022 Delmer Answered No To The Tobacco Cessation Counseling Provided Question On 09/15/2018. Information not available 03/14/2022 Do You Or Have You Ever Used Any Other Forms Of Tobacco Or Nicotine? No Information not available 03/14/2022 Sex: Female Functional Status Question Answer Note LastModified by Organization D etails LastModified Time Are you able to care for yourself? Yes Information n ot available 07/12/2020 What is your exercise level? None Information not available 09/15/2018 Mental Status None recorded. Family History Relationship Description Onset Age of this Age Resolved Age Notes LastModified by Organization Details LastModified Time Mother Disorder of lung Not available 2014 14:52:43 Mother Hypertensive disorder Not available 2014 14:52:43 Father Myocardial infarction 86 Not available 12/26 14:52:43 Son Myocardial infarction 36 Not available 12/26 14:52:43 Son Hypertensive disorder Not available 2014 14:52:43 Son Congestive heart failure Not available 2014 14:52:43 Medical History Condition Response Heart Problems N Other N Breast Cancer N Thyroid Problems Y Kidney or Bladder Problems N Lung Disease N GI Problems N Depression N Acne N Breast Problem N Eating Disorder N Anemia N Anesthesia Complications N Headaches/Migraines N Ovarian Cancer N Diabetes N Anxiety Disorder N Blood Transfusions N Arthritis Y Polyps N Infertility N Acid Reflux (GERD) N Cancer N Stroke N Abuse/Domestic Violence N Asthma N Endometriosis N High Cholesterol N Hepatitis Y Heart Disease N Fibromyalgia N Pre-Eclampsia N Hypertension Y Osteoporosis N Kidney Disease N Gynecological History Statement/Question Response Abnormal Pap N If Post Menopausal, Age at Menopause 46 Date of Last Mammogram 10/26/2018 Sexually Active? N On BCP's at Conception? N Date of Last Pap Smear 02/18/2019 Sexual Problems? N Current Control Method Tubal Ligat ion Most Recent Mammogram 10/26/2018 Age at First Child 22 Obstetrics History GPAL:G 4 P 2 0 2 2 Type Value Full Term 2 Induced 1 Spontaneous 1 Living 2 Total 4 Immunizations Vaccine Type Date Status Note Provider Nam e and Address Organization Details Recorded Time tetanus toxoid, unspecified formulation 4 completed Not Available [facility] 02/07/2023 06:33:16 Influenza, split virus, quadrivalent, preservative 0 completed Not Available [facility] 03/07/2023 14:49:48 SARS-COV-2 (COVID-19) vaccine, UNSPECIFIED 1 completed Not Available [facility] 03/07/2023 14:49:48 SARS-COV-2 (COVID-19) vaccine, UNSPECIFIED 1 completed Not Available [facility] 03/07/2023 14:49:48 COVID-19, mRNA, LNP-S, PF, 30 mcg/0.3 mL dose 1 completed Not Available [facility] 02/07/2023 06:33:15 Influenza, split virus, quadrivalent, preservative 6 completed Not Available [facility] 02/07/2023 06:33:15 COVID-19, mRNA, LNP-S, PF, 30 mcg/0.3 mL dose 1 completed Not Available [facility] 02/07/2023 06:33:15 pneumococcal polysaccharide PPV23 2 completed Not Available [facility] 02/07/2023 06:33:16 Pneumococcal conjugate PCV 13 1 completed Not Available [facility] 02/07/2023 06:33:16 COVID-19, mRNA, LNP-S, PF, 30 mcg/0.3 mL dose 1 completed Not Available [facility] 02/07/2023 06:33:15 Influenza, split virus, quadrivalent, PF 0 completed Not Available [facility] 02/07/2023 06:33:16 Influenza, split virus, quadrivalent, preservative 9 completed Not Available [facility] 03/27/2019 02:38:09 Influenza, high-dose, quadrivalent, PF 3 completed Charlene Vogel MD Attn: Accounting,[address] [place], [address], [facility] 03/14/2022 19:32:24 Past Encounters Encounter ID Performer Location Encounter Start Date Encounter Closed Date Diagnosis/Indication Diagnosis SNOMED-CT Code Diagnosis ICD10 Code Diagnosis Note [id number] [facility] [address] [place] [address] 12/26/2014 13:42:42 12/26/2014 15:22:01 Gynecologic examination 72860411 Z01.005 [id number] MD Sukhjinder Allen (Adult Med) [address] [place] [address] 09/15/2018 13:25:11 09/16/2018 09:00:54 Screening for malignant neoplasm of breast 313662301 Z12.31 General ex amination of patient 634659262 Z00.01 Acquired hypothyroidism 281086639 E03.9 History of hepatitis C 1444631537 9101 Z86.19 She was treated but unfortunat lennie had BM suppressio n from [employer]. Osteoarthr itis of knee 704914023 M17.0 Previously seen by orthopedic s and it was felt that she needed to lose weight before surgery. She was previously in pain management until when she changed her insurance and had obtained benefit from viscosuppl ementation . Benign ess ential hypertension 6962704 I10 Screening for malignant neoplasm of cervix 087328298 Z12.4 Body mass index 30+ - obesity 005902190 Z68.43 Foot pain 87994197 M79.6 71 M79.672 PF vs bone spurs Vertigo 688029950 R42 Gastroesop hageal reflux disease 427373908 K21.9 Administra tion of diphtheria, pertussis, and tetanus vaccine 585706688 Z23 She has asked to defer this until the next visit [id number] MD Sukhjinder Allen (Adult Med) [address] [place] [address] 11/10/2018 12:15:14 11/10/2018 12:52:02 Osteoarthritis of knee 368338886 M17.0 Previously seen by orthopedic s and it was felt that she needed to lose weight before surgery. She was previously in pain management until when she changed her insurance and had obtained benefit from viscosuppl ementation . Chronic anemia 735523757 D64.9 Initially felt to be due to BM suppressio n from [facility] in 2016, her hemoglobin was apparently as low as 4, requiring EES and a NH admission. Transfusio n of blood product declined for mandaeism reason 140791539 Z53.1 [id number] MD Sukhjinder Allen (Adult Med) [address] [place] [address] 0 12/01/2018 15:15:07 12/02/2018 08:39:54 Megaloblastic anemia due to vitamin B>12< deficiency 53487686 D53.1 She was on B12 injections in the past Chronic anemia 578033824 D64.9 Initially felt to be due to BM suppressio n from [facility] in 2016, her hemoglobin was apparently as low as 4, requiring EES and a NH admission. Colonoscop y report from [place] Administra tion of influenza vaccine 85434335 Z23 Chest pain 22270979 R07. 2 [id number] KRISTEN Coyle (Adult Med) [address] [place] [address]4969[address] 0 12/31/2018 14:52:30 01/01/2019 08:23:49 Disorder of vitamin B12 677128299 E53.8 [id number] MD Sukhjinder Allen (Adult Med) [address] [place] [address]8937[address] 0 12/31/2018 15:19:45 01/01/2019 08:25:32 Chest wall pain 074564005 R07.89 [place] [employer] data was reviewedSh ort course of tramadol Cardiovasc ular stress test abnormal 236948814 R94.39 Follow up with the cardiologi st [id number] SUSANNE THEODORE (SYSTEMS PROGRAMMER) [address] [place] [address] 0 02/18/2019 13:30:31 02/18/2019 14:58:39 Gynecologic examination 63701520 Z01.419 Venereal d isease screening 141213283 Z11.3 Body mass index 40+ - severely obese 655773154 Z68.43 [id number] MD Sukhjinder Allen (Adult Med) [address] [place] [address]26[address] 0 03/11/2019 11:57:00 03/12/2019 08:40:35 Gastroesophageal reflux disease 472705279 K21.9 She cannot tolerate Diclofenac without her PPI Acquired hypothyroidism 950528154 E03.9 Long-term drug therapy 672094073 Z79.899 Sickle cell trait 094324 00 D57.3 Disorder o f vitamin B12 920853138 E53.8 [id number] MD Sukhjinder Allen (Adult Med) [address] [place] [address]7475[address] 0 11/12/2019 08:18:23 11/16/2019 20:13:00 Benign essential hypertension 9759539 I10 Osteoarthr itis of knee 499292088 M17.0 Previously seen by orthopedic s and it was felt that she needed to lose weight before surgery. She was previously in pain management until when she changed her insurance and had obtained benefit from viscosuppl ementation . Acquired hypothyroidism 634264042 E03.9 Dyspnea 071428813 R06.00 Chronic nocturnal wheezing, coughing, orthopnea, PND. -Apneic episodes. Responsive to her inhalerSti ll not clear if this is a cardiac or a respirator y issue.She really needs an office visit.ER with worsening SOBTTE incomplete reportCard iology evaluation 12/2018CXR 12/31/2018 [id number] MD Sukhjinder Allen (Adult Med) [address] [place] [address]43[address] 0 02/21/2020 08:16:54 02/22/2020 10:51:03 Disorder of vitamin B12 240026471 E53.8 Recheck, if it is still low, she may need monthly IM B12 at home Screening for malignant neoplasm of colon 706883983 Z12.11 Vitamin D deficiency 347 80638 E55.9 [id number] MD Sukhjinder Allen (Adult Med) [address] [place] [address] 97154[address] 0 07/12/2020 14:00:41 07/13/2020 08:18:54 Peripheral vascular disease 568752394 I73.9 Osteoarthr itis of knee 302209157 M17.0 Previously seen by orthopedic s, it was felt that she needed to lose weight before surgery. She was also previously in pain management until when she changed her insurance and had obtained benefit from viscosuppl ementation . Vitamin B1 2 deficiency (non anemic) 89449901 E53.8 Pain in lower limb 35104 006 M79.604 Acquired hypothyroidism 504396159 E03.9 Medication monitoring 39 9172469 Z51.81 [id number] MD Sukhjinder Allen (Adult Med) [address] [place] [address] 93339[address] 0 08/21/2020 15:34:41 08/22/2020 12:15:50 Disorder of vitamin B12 640960357 E53.8 Monthly IM B12 Inguinal lymphadenopathy 478376312 R59.0 Pap 2019 She told me I don't have to do that no more with my age Colonoscop y? US Acquired hypothyroidism 319294870 E03.9 Pain in ri ght hip joint 5853456242 29781 M25.551 Lumbar radiculopathy 128 053727 M54.16 Body mass index 40+ - severely obese 146451118 Z68.43 Screening for malignant neoplasm of breast 991710102 Z12.31 Peripheral vascular disease 031591961 I73.9 [id number] Charlene Vogel MD [facility] (Adult Med) [address] [place] [address] 62968-167 0 11/02/2020 08:35:23 11/05/2020 19:31:09 Pain in right hip joint 6619619534 22213 M25.551 Clavicle pain 920461435 M25.519 OV needed Inguinal lymphadenopathy 698320822 R59.0 Pap 2019 She told me I don't have to do that no more with my age Colonoscop y report is still needed The US confirms an enlarged LN, reactive vs malignant Disorder o f vitamin B12 017012569 E53.8 Monthly IM B12 Acquired hypothyroidism 973596623 E03.9 Pain in lower limb 71710 006 M79.263 [id number] MD Sukhjinder Allen (Adult Med) [address] [place] [address] 91028-997 0 12/14/2020 15:09:15 12/19/2020 08:59:17 Inguinal lymphadenopathy 505591943 R59.0 Pap 2019 She told me I don't have to do that no more with my age A colonoscop y cannot be located, she will need another one EGD and Capsule endoscopy 07/11/2016In view of her inguinal lymphadeno atul and the abdominal mass, she needs a CT scan A & P Disorder o f vitamin B12 940756694 E53.8 Monthly IM B12 Acquired hypothyroidism 395173776 E03.9 Pain in ri ght hip joint 1029272430 04049 M25.551 Referred to Orthopedic s Screening for malignant neoplasm of colon 189778395 Z12.11 Administra tion of pneumococcal vaccine 01620310 Z23 Neck swelling 063410413 R22.1 Abdominal mass 849381987 R19.00 [id number] Jose Conway MD [facility] [address] [place] [address] 01/09/2021 10:52:52 01/11/2021 14:48:27 Recurrent hernia of anterior abdominal wall 185057404 K43.9 patient with symptomati c recurrent ventral hernia, amenable to open repair. Risks include bleeding, recurrence , pain, and mesh infection. Patient is in agreement with the plan of care. Will proceed to the OR as soon as is convenient . [id number] Jose Conway MD [facility] [address] [place] [address] 02/28/2021 09:41:42 03/06/2021 09:31:27 Recurrent ventral incisional hernia 440933651 K43.2 s/p open repair Postoperative seroma 429 610683 T81.89XA 1) steri strips in place, shower daily2) use gauze/band aid as needed should and small drainage occur3) seroma should absorb over coming weeks4) if large drainage or fever occurs, call office5) no lifting over 30 lbs until Mar) moisturize incision after steri strips fall off [id number] [facility] [address] [place] [address] 05/09/2021 14:58:11 05/10/2021 08:43:28 Administration of pneumococcal vaccine 76042958 Z23 Disorder o f vitamin B12 650071902 E53.8 Monthly IM B12 Swelling of lower leg 44 1088138 R22.41 Acquired hypothyroidism 491016846 E03.9 Sickle cell trait 140951 00 D57.3 [id number] Charlene Vogel MD [facility] (Adult Med) [address] [place] [address] 0 07/10/2021 15:10:32 07/11/2021 10:07:08 Inguinal lymphadenopathy 445824159 R59.0 Pap 2019 She told me I don't have to do that no more with my age A colonoscop y may have been [place] [address] Caruso according to the notes from Dr Tejeda, we have had a lot of difficulty getting this report and we will call their office again. EGD and Capsule endoscopy 07/11/2016In view of her inguinal lymphadeno atul she may need a biopsy No enlarged LN noted on the CT scan of the Abdomen done on 01/04/[address] of the abdomen done on 02/27/2021 but there is mention made on the US of the LE done on 05/16/2021 Check the colonoscop y report, consider a LN Bx. [id number] Myesha Armando MA [facility] (Adult Med) [address] [place] [address] 07/12/2021 14:38:44 07/13/2021 21:16:52 Disorder of vitamin B12 989327792 E53.8 Monthly IM B12 [id number] Charlene Vogel MD [facility] (Adult Med) [address] [place] [address]2796[address] 11/29/2021 15:52:26 11/30/2021 14:16:58 Diverticulosis of colon 497551888 K57.30 A colonoscop y is due Weight loss 10424897 R63 .4 -12lbsInte ntional Body mass index 40+ - severely obese 829927041 Z68.43 Inguinal lymphadenopathy 045500637 R59.0 Pap 2019 She told me I don't have to do that no more with my age A colonoscop y may have been [place] [address] Caruso according to the notes from Dr Tejeda, we have had a lot of difficulty getting this report and we will call their office again. EGD and Capsule endoscopy 07/11/2016In view of her inguinal lymphadeno atul she may need a biopsy No enlarged LN noted on the CT scan of the Abdomen done on 01/04/[address] of the abdomen done on 02/27/2021 but there is mention made on the US of the LE done on 05/16/2021 The colonoscop y report from 03/29/2016 confirms diverticul osis and hemorrhoid s, she should repeat her colonoscop y and one will then decide on the need for a LN Bx. Influenza vaccination declined 406827406 Z28.21 SARS-CoV-2 antigen vaccine declined 9351848320 Z28.21 Low back pain 778370840 M54.50 Screening mammography of bilateral breasts 6649142419 64983 Z12.31 Disorder o f vitamin B12 585044249 E53.8 Monthly IM B12 Acquired hypothyroidism 799320654 E03.9 Medication monitoring 39 8009320 Z51.81 Impaired mobility 447075 05 Z74.09 [id number] KRISTEN Coyle (Adult Med) [address] [place] [address]99[address] 0 12/26/2021 15:20:35 12/27/2021 09:55:04 Disorder of vitamin B12 368993861 E53.8 Monthly IM B12 [id number] Charlene Vogel MD [facility] (Adult Med) [address] [place] [address]44[address] 0 03/14/2022 09:06:02 03/15/2022 16:33:23 Inguinal lymphadenopathy 827472481 R59.0 Her colonoscop y was apparently negative, but her 28 lb weight loss, bilateral Inguinal lymphadeno atul remains unexplaine d. A CT scan of the A& P is needed to r/o a cause of the lymphadeno atul. OV 11/29/21Pap 2018 She told me I don't have to do that no more with my age A colonoscop y may have been [place] [address] Caruso according to the notes from Dr Tejeda, we have had a lot of difficulty getting this report and we will call their office again. EGD and Capsule endoscopy 07/11/2016In view of her inguinal lymphadeno atul she may need a biopsy No enlarged LN noted on the CT scan of the Abdomen done on 01/04/[address] of the abdomen done on 02/27/2021 but there is mention made on the US of the LE done on 05/16/2021 The colonoscop y report from 03/29/2016 confirms diverticul osis and hemorrhoid s, she should repeat her colonoscop y and one will then decide on the need for a LN Bx. Acquired hypothyroidism 274622287 E03.9 Laboratory test result abnormal 682582763 R89.9 Pain in lower limb 39840 006 M79.604 Administra tion of influenza vaccine 80550218 Z23 Disorder o f vitamin B12 310620902 E53.8 Monthly IM B12 Chronic in stability of knee 315206388 M23.51 History of fall 25139075 9 Z91.81 Onychomyco sis of toenails 098755010 B35.1 [id number] Charlene Vogel MD [facility] (Adult Med) [address] [place] [address]46[address] 0 08/20/2022 12:27:21 08/21/2022 16:46:14 Follow-up visit 089507095 Z09 Imaging re sult abnormal 583966519 R93.89 CT scan 08/16/2022;S /P UH repair with a meshUrinar y bladder wall thickening Constipati onDDDOA Inguinal lymphadenopathy 540969278 R59.0 Colonoscop y 03/29/2016, internal hemorrhoid s Q 5 yearsShe was referred to GI on 11/28/2021 and apparently had a normal colonoscop y. A report has been requested. OV 03/14/2022He r colonoscop y was apparently negative, but her 28 lb weight loss, bilateral Inguinal lymphadeno atul remains unexplaine d. A CT scan of the A& P is needed to r/o a cause of the lymphadeno atul. OV 11/29/21Pap 2018 She told me I don't have to do that no more with my age A colonoscop y may have been done in [address] Caruso according to the notes from Dr Tejeda, we have had a lot of difficulty getting this report and we will call their office again. EGD and Capsule endoscopy 07/11/2016In view of her inguinal lymphadeno atul she may need a biopsy No enlarged LN noted on the CT scan of the Abdomen done on 01/04/[address] of the abdomen done on 02/27/2021 but there is mention made on the US of the LE done on 05/16/2021 The colonoscop y report from 03/29/2016 confirms diverticul osis and hemorrhoid s, she should repeat her colonoscop y and one will then decide on the need for a LN Bx. Disorder o f vitamin B12 744622489 E53.8 Monthly IM B12 Disorder o f urinary bladder 03232575 N32.9 [id number] MD Sukhjinder Allen (Adult Med) [facility] [place] [address] 01/14/2023 15:33:33 01/15/2023 12:49:59 Inguinal lymphadenopathy 003303745 R59.0 Seen by the general surgeon on 09/19/2022 and apparently followed up.I will need a note from her visit OV 08/20/2022 olonoscopy 03/29/2016, internal hemorrhoid s Q 5 yearsShlauren was referred to GI on 11/28/2021 and apparently had a normal colonoscop y. A report has been requested. OV 03/14/2022He r colonoscop y was apparently negative, but her 28 lb weight loss, bilateral Inguinal lymphadeno atul remains unexplaine d. A CT scan of the A& P is needed to r/o a cause of the lymphadeno atul. OV 11/29/21Pap 2018 She told me I don't have to do that no more with my age A colonoscop y may have been done [place] [address] Caruso according to the notes from Dr Tejeda, we have had a lot of difficulty getting this report and we will call their office again. EGD and Capsule endoscopy 07/11/2016In view of her inguinal lymphadeno atul she may need a biopsy No enlarged LN noted on the CT scan of the Abdomen done on 01/04/[address] of the abdomen done on 02/27/2021 but there is mention made on the US of the LE done on 05/16/2021 The colonoscop y report from 03/29/2016 confirms diverticul osis and hemorrhoid s, she should repeat her colonoscop y and one will then decide on the need for a LN Bx. Body mass index 40+ - severely obese 388048018 Z68.43 Obesity 906282417 E66.9 Peripheral arterial occlusive disease 480885294 I73.9 Mild disease in the LLE General ex amination of patient 776532518 Z00.01 Abdominal pain 63142684 R10.9 LUQ abdominal painColono scopy 2017 and possibly 2021 or 2022EGD 2017CT scan needed Postmenopausal state 764 54232 Z78.0 Acquired hypothyroidism 248111292 E03.9 Family his tory of malignant neoplasm of pancreas 787580598 Z80.0 Disorder o f vitamin B12 141386461 E53.8 Monthly IM B12 [id number] KRISTEN Coyle (Adult Med) [address] [place] [address] 03/07/2023 14:42:25 03/11/2023 16:08:59 Disorder of vitamin B12 972783555 E53.8 Monthly IM B12 [id number] MD Sukhjinder Allen (Adult Med) [address] [place] [address] 08/19/2023 14:34:35 08/20/2023 20:00:10 Inguinal lymphadenopathy 860094753 R59.[address] scan done on 02/05/2023 was negative OV 01/14/2023 Seen by the general surgeon on 09/19/2022 and apparently followed up.I will need a note from her visit OV 08/20/2022 olonoscopy 03/29/2016, internal hemorrhoid s Q 5 yearsShe was referred to GI on 11/28/2021 and apparently had a normal colonoscop y. A report has been requested. OV 03/14/2022He r colonoscop y was apparently negative, but her 28 lb weight loss, bilateral Inguinal lymphadeno atul remains unexplaine d. A CT scan of the A& P is needed to r/o a cause of the lymphadeno atul. OV 11/29/21Pap 2018 She told me I don't have to do that no more with my age A colonoscop y may have been done in [address] Caruso according to the notes from Dr Tejeda, we have had a lot of difficulty getting this report and we will call their office again. EGD and Capsule endoscopy 07/11/2016In view of her inguinal lymphadeno atul she may need a biopsy No enlarged LN noted on the CT scan of the Abdomen done on 01/04/[address] of the abdomen done on 02/27/2021 but there is mention made on the US of the LE done on 05/16/2021 The colonoscop y report from 03/29/2016 confirms diverticul osis and hemorrhoid s, she should repeat her colonoscop y and one will then decide on the need for a LN Bx. Obesity 792944104 E66.9 Acquired hypothyroidism 652144965 E03.9 Labs 02/11/2023 TSH 6.24, on Levothyrox ine 125 mcg po dailyOn Levothyrox ine to 150 mcg po dailyLabs Disorder o f vitamin B12 652764411 E53.8 Check the B12 levels, the plan was monthly IM B12, although she has not received a dose since February,. Screening mammography 24 727654 Z12.31 Osteopenia 291177558 M85 .80 Obstructiv e sleep apnea syndrome 77987006 G47.33 Atypical chest pain 1025 66871 R07.89 General ex amination of patient 757344010 Z00.01 Family his tory of Cardiovascular disease 027460690 Z82.49 [id number] Charlene Vogel MD [facility] (Adult Med) [address] [place] [address] 02/10/2024 14:46:57 02/12/2024 11:25:07 Morbid obesity 506805663 E66.01 Body mass index 40+ - severely obese 066851802 Z68.42 Acquired hypothyroidism 704292471 E03.9 Restart Levothyrox ineLabs in 6 weeks OV 08/19/2023L abs 02/11/2023 TSH 6.24, on Levothyrox ine 125 mcg po dailyOn Levothyrox ine to 150 mcg po dailyLabs Obstructiv e sleep apnea syndrome 91810560 G47.33 Disorder o f lipid metabolism 737637348 E78.9 Axillary lymphadenopathy 505119482 R59.0 MMG 09/26/2023 Health Concerns Section Related Observation LastModified by Organization Detai ls LastModified Time None Recorded Concern Status LastModified by Organization Details LastModified Time None Recorded Advance Directives Directive N: Payers Encounter Date Sequence Insurance Name Policy Number Policy Cespedes Covered Member ID Cespedes Member ID Guarantor Name 08/20/2022 2 [place] WHEN [place]ARE OR MEDICARE REPLACEMENT PRIMARY) Delilah Segovia [id number] Delilah Segovia 08/20/2022 1 [facility] (MEDICARE REPLACEMENT/AD VANTAGE - HMO) [id number] Delilah Segovia [id number] Delilah Segovia 01/14/2023 2 [place] OR MEDICARE REPLACEMENT PRIMARY) Delilah Segovia [id number] Delilah Segovia 01/14/2023 1 [facility] (MEDICARE REPLACEMENT/AD VANTAGE - HMO) [id number] Delilah Segovia [id number] Delilah Segovia 03/07/2023 2 [place] OR MEDICARE REPLACEMENT PRIMARY) Delilah Segovia [id number] Delilah Segovia 03/07/2023 1 [facility] (MEDICARE REPLACEMENT/AD VANTAGE - HMO) [id number] Delilah Segovia [id number] Delilah Segovia 08/19/2023 1 [facility] (MEDICARE REPLACEMENT/AD VANTAGE - HMO) [id number] Delilah Segovia [id number] Delilah Segovia 08/19/2023 2 [facility] (MEDICAID HMO) [id number] Delilah Segovia [id number] Delilah Segovia 02/10/2024 1 [facility] (MEDICARE REPLACEMENT/AD VANTAGE - HMO) [id number] Delilah Segovia [id number] Delilah Segovia Notes Date Note Type Note Provider Name and Address Organization Details Recorded Time 08/20/2022 text/html He said I didn' t have no polyps I wonder if this is Sciatica? It was time for a check up In the interim, she was in the ER on 04/18/2022 with chest pain and apparently she had a normal stress test. She feels it was from a chest wall strain after a URI. She apparently also had a normal colonoscopy early this year. Charlene Vogel MD Attn: Accounting[address] [place], [address], [facility] 08/20/2022 13:45:28 01/14/2023 text/html Abdominal PainReported bypatient.Location:ERIC Q Quality:pain Severity:severe Duration:intermittent Onset/Timing:worse; wax/wane Modifying Factors:movement Associated Symptoms:no fever; no chills; no blood in the urine; no heartburn; no shortness of breath Other:denies possible He told me he didn't see anything wrong with it I am having a pain right here He said I have Sciatica [facility] came out, ....said I need a bone density test Ms Segovia was seen by the surgeon for her chronic inguinal lymphadenopathy, she said that on her follow up visit, a decision was made not to proceed with the biopsy. She had a recent colonoscopy in 2021 or 2022, although the last report in her chart is from 2017 She presents with LUQ abdominal pain, there is some variability with movement, she is concerned as she has a brother who had Pancreatic cancer. She was also seen by her chiropractor who diagnosed her with right sided Sciatica. Charlene Vogel MD Attn: Accounting[address] [place], [address], [facility] 01/14/2023 20:08:35 08/19/2023 text/html Angina/Chest PainReported bypatient.Quality:pre ssure Severity:very limiting; severe Duration:lasts minutes Onset/Timing:started 4weeks ago Context:at rest;wakes from sleep Alleviating Factors:relieved with medication (Aspirin) Aggravating Factors:nothing makes it worse Associated Symptoms:no dyspnea; no decrease in exercise capacity; no fatigue; no nocturnal episodes; no resting episodes; no associated palpitations; no associated dizziness It's supposed to be my check up time I woke up and felt like something was sitting on my chest My father of a heart attack, he was 86. My son of a massive heart attack as well, he was 34 Long time ago, the doctor had me on......Sleep Apnea, I had a machine She snores and has a diagnosis of BONILLA and she has not used her CPAP in some time. A few weeks ago, she woke up with severe chest pain, there was no radiation or diaphoresis but she got up, took some ASA and felt okay afterwards. Since her last visit, she had a CT scan and she has established care with the reel cutter Charlene Vogel MD Attn: Accounting[address] [facility], [place], [address], [place] [facility] 08/19/2023 18:39:30 02/10/2024 text/html Medicare Annual Wellness VisitReported bypatient.Diet and Nutrition:healthy diet; discussed vitamin and supplement use Fracture Risk:no recent explained fracture; no sudden unexplained fractures; no previous musculoskeletal injuries;history of fractures Physical Activity:exercises on a regular basis; recent increase in physical activity; good physical condition Depression Risk:never feels sad, empty, or tearful; no loss of interest in activities; no significant changes in weight; no sleep disturbances or insomnia; no agitation; no loss of energy; no feelings of worthlessness or guilt; no thoughts of suicide; no history of depression; no history of mood disorders Orientation:no disorientation to time; no disorientation to date; no disorientation to place Concentration and Memory:no decreased concentrating ability; no memory lapses or loss; does not forget words Speech/Motor difficulties:no speech difficulties; no difficulty expressing formulated concepts; no difficulty with fine manipulative tasks; no difficulty writing/copying; no slowed reaction time; does not knock things over when trying to pick them up Hearing:no loss of hearing Vision:worse both distance and near Activities of Daily Living:able to bathe with limited or no assistance; able to contol urination and bowels; able to dress with limited or no assistance; able to feed self with limited or no assistance; able to get out of chair or bed with limited or no assistance; able to groom with limited or no assistance; able to toilet with limited or no assistance Instrumental Activities of Daily Living:able to grocery shop with limited or no assistance; able to manage medications with limited or no assistance; able to manage money with limited or no assistance; able to prepare meals with limited or no assistance; able to use the phone with limited or no assistance;unable to do house work without assistance Falls Risk Assessment:no frequent falls while walking; no fall in the past year; no fall since last visit; no dizziness/vertigo Home Safety:no unsafe christopher hazzards; no unsafe stairs; no unsafe gas appliances; working smoke/CO detectors; wears protective head gear for biking/high velocity; use of seatbelts; no vision or hearing loss while driving; has hand bars in the bathroom/shower; good lighting in the home I haven't had it for a month Ms Segovia has been out of Levothyroxine, in the interim, she was seen by the guardian ad litem and she had a different test instead of a cardiac cath. She noticed a knot in her left axilla recently Charlene Vogel MD Attn: [employer] [place], [id number], [facility] - [place] 02/10/2024 19:56:28 OBGyn Episode No OBEpisode recorded.
[2024-05-03 11:51] LABS: Free T4 Free Thyroxine 2.07 ng/dL (0.78-2.19)
== END 2024-05-03 10:08 | disposition home or self-care (01) ==
PROVIDERS: PCP Internal Medicine Infectious Disease; Visit Provider Internal Medicine
DX: R73.03 Prediabetes (principal); I10 Essential (primary) hypertension; Z13.820 Encounter for screening for osteoporosis
CPT/HCPCS: 36415; 80053; 80061; 82043; 83036; 84439; 84443; 85025

== ENCOUNTER 2024-07-28 13:17 | Outpatient (CLI) | payer MEDICARE, MEDICAID, SELFPAY ==
--- NOTE | ~2024-07-28 | DEXA_ITS ---
Bone Density Report Name: AYDEE DIAZ Age: 68 Sex: Female Ethnicity: Black Date of : 1955 Indication: postmenopausal; screening for osteoporosis; height loss; Referring Provider: SRINIVAS, OSCAR Study: Bone densitometry was performed. Exam Date: July 28, 2024 Accession number: [id number] Bone Density: Region BMD T-score Z-score Classification AP Spine(L2, L3, L4) 0.752 -3.0 -1.6 Osteoporosis Femoral Neck (Left) 0.688 -1.5 -0.5 Osteopenia Total Hip (Left) 1.018 0.6 1.0 Normal Femoral Neck (Right) 0.657 -1.7 -0.7 Osteopenia Total Hip (Right) 0.940 0.0 0.5 Normal Total Hip Mean 0.979 0.3 0.8 Normal World Health Organization criteria for BMD impression classify patients as: Normal (T-score at or above -1.0), Osteopenia (T-score between -1.0 and -2.5), or Osteoporosis (T-score at or below -2.5). 10-year Fracture Risk: FRAX not reported because: Some T-score for Spine Total or Hip Total or Femoral Neck at or below -2.5 Clinical Information Provided by Patient: Patient maximum height was 63 Menopause Age: 40 No regular weight bearing exercise Does not regularly consume dairy products Drinks caffeinated beverages Onset of menses at age 13 Number of children 2 Impression: The patient has osteoporosis, based on the Total Spine T-score. Discussion: INCREASED RISK OF FRACTURE. BONE DENSITY IS UNDESIRABLY LOW AT ONE OR MORE SKELETAL SITES, CONSISTENT WITH POSTMENOPAUSAL OSTEOPOROSIS. This patient's lowest T-score meets the World Health Organization's (WHO) criteria for osteoporosis at one or more sites (T-score -2.5 or below). In untreated patients, the risk of osteoporotic fracture increases approximately two-fold for each 1.0 SD decrease in T-score. Low bone density is not the only risk factor for fracture; also consider factors such as patient's age, frailty or poor health, risk of falling, risk of injury, previous osteoporotic fracture, family history of osteoporosis, cigarette smoking, low body weight, etc. Not everyone with low bone mineral density has osteoporosis; osteomalacia and other metabolic bone disorders should also be considered. Patients who have osteoporosis should be evaluated for specific diseases and conditions (secondary causes) that may cause or contribute to bone loss. The [place] Association of Clinical Endocrinologists (AACE) and National Osteoporosis Foundation (NOF) recommend pharmacologic intervention for all postmenopausal women whose T-score is in this range. The patient should follow a healthful lifestyle (good nutrition with adequate calcium and vitamin D, and appropriate weight-bearing exercise). Follow-Up: Consider a repeat BMD and Vertebral Fracture Assessment (VFA) exam in 2 years or sooner if medically necessary, to reassess this patient's status. Reported by: PHILLIP on 07/28/2024 1:56:00 PM. Reviewed, dictated and finalized at location A.
--- OUTSIDE RECORDS SUMMARY | 2024-07-28 13:22 | XMS_ITS | Data Portability ---
Author Organization [facility] Address [address] [place] [address] Care Team Providers Care Cosmetology Professor Name Role Phone CHARLENE VOGEL Primary Care Provider [phone] Assessment No assessment recorded. Plan of Treatment Reminders Order Date Submit Date Provider Last Modified By Organization Details Last Modified Time Details Appointments None recorded. Lab TSH, ultra-sensi tive, serum 2023 [facility], [address], [place], [address], 5 15:17:20 lipoprotein a, qn, serum 2023 025 BATCHELOR [facility], [address], [place], [address], 5 04:08:08 HbA1c (hemoglobin A1c), blood 2023 024 JENNIFER [facility], [address], [place], [address], 4 08:23:59 CMP, serum or plasma 2023 024 JENNIFER [facility], [address], [place], [address], 4 08:23:58 CBC 2023 024 JENNIFER [facility], [address], [place], [address], 4 08:24:00 vitamin D, 25-hydroxy, total, serum 2023 024 [facility], [address], [place], [address], 4 08:24:01 vitamin B12, serum 2023 024 [facility], [address], [place], [address], 4 08:24:00 TSH, ultra-sensi tive, serum 2022 023 [facility], [address], [place], [address], 3 08:27:54 CBC w/ auto diff 2022 023 [facility], [address], [place], [address], 3 20:09:31 CMP, serum or plasma 2022 023 [facility], [address], [place], [address], 3 20:09:30 lipid panel, serum 2022 023 [facility], [address], [place], [address], 3 20:09:29 urinalysis, dipstick 2022 023 [facility], [address], [place], [address], 3 20:09:31 vitamin D, 25-hydroxy, total, serum 2022 023 [facility], [address], [place], [address], 3 08:27:55 urinalysis complete, reflex culture 2022 023 BATCHELOR [facility], [address], [place], [address], 3 13:10:22 Referral cardiologis t referral - Atypical chest pain, strong FHX of CAD 2023 024 [facility], [address] [facility], [place], [address], 4 12:13:55 nutritionis t/dietitian referral 2022 023 [facility], [address], [place], [address], 4 16:00:24 Procedures None recorded. Surgeries None recorded. Imaging US, axilla - LN? 2023 024 [facility] (Imaging), [address], [place], [address], 5 01:17:11 MAMMO, screening, bilateral 2023 024 [facility] (One Call Scheduling), [address] [place], [address], 4 12:05:49 XR, chest, 2 view - [facility] [address] [place], [address], 4 17:06:22 CT, abdomen + pelvis, w/ contrast - LUQ abdominal pain, colonoscopy 03/29/20162022 023 [facility] (One Call Scheduling), [address] [place], [address], 3 17:07:58 bone density 2022 023 [facility] (One Call Scheduling), [address] [place], [address], 3 08:13:09 US, groin - Inguinal lymphadenop athy, follow up 2022 023 [facility] (One Call Scheduling), [address] [place], [address], 3 15:28:35 Medication Orders levothyroxi ne 150 mcg tablet 2023 024 [id number], [address], [id number], 4 15:26:11 aspirin 81 mg tablet,gavi yed release 2023 024 [facility] #[id number], [address], [place], [place], [id number], 4 15:45:27 cyanocobala min (vit B-12) 1,000 mcg/mL injection solution 2022 023 oajao Not available 3 16:52:13 cyanocobala min (vit B-12) 1,000 mcg/mL injection solution 2022 023 [facility] #[id number], [address], [place], [place], [id number], 3 17:16:56 cyanocobala min (vit B-12) 1,000 mcg/mL injection solution 2022 023 [facility] Not available 3 14:05:52 Patient TargetsNo targets recorded. Patient Instructions Encounter Date Encounter Id Patient Instructions Last Modified By Organization Details Last Modified Time 08/20/2022 [id number] D/C summary Stre ss test report Colonoscopy report US Labs Lab results from [facility] Arterial studies as previously ordered Follow up in 6 weeks oajao Not available 08/20/2022 13:02:49 01/14/2023 [id number] abdominal pain: care instructions oajao Not available 01/14/2023 16:25:35 Peripheral Arterial Disease (PAD): Care Instructions oajao Not available 01/14/2023 16:22:57 A healthy lifestyle: care instructions oajao Not available 01/14/2023 16:22:57 body mass index: care instructions oajao Not available 01/14/2023 16:22:57 learning about healthy weight oajao Not available 01/14/2023 16:22:57 Colonoscopy repo rt from [facility], 2021 or [address] Bucio (Post 09/19/2022 visit) CT scan Labs DEXA Follow up in 1-2 weeks (Post CT and labs) oajao Not available 01/14/2023 20:08:00 08/19/2023 [id number] mammogram: about this test oajao Not available [...] oajao Not available 08/19/2023 18:38:05 Diclofenac Na MT N only, the ranal, CV and GI risks were discussed in detail. 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 Refer ral for Body mass index 40+ - severely obese Referring Physician: Charlene Vogel, Internal Medicine, Encounter Date: 01/14/2023 [employer]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 5 Not Available [facility] ([facility]) [address] [place], [address], 09/24/2022 13:10:22 09/24/19 23 09/24/2022 UA WITH CULTU RE REFLE X urine-color YELLOW yellow Not Available [facility] ([facility]) [address] [place], [address], 09/24/2022 13:10:22 09/24/19 23 09/24/2022 UA WITH CULTU RE REFLE X appearance CLEAR clear Not Available [facility] ([facility]) [address] [place], [address], 09/24/2022 13:10:22 09/24/19 23 09/24/2022 UA WITH CULTU RE REFLE X WBC esterase NEGATI VE negati ve Not Available [facility] ([facility]) [address] [facility], [place], [address], 09/24/2022 13:10:22 09/24/19 23 09/24/2022 UA WITH CULTU RE REFLE X protein NEGATI VE negati ve/tra ce Not Available [facility] ([facility]) [address] [facility], [place], [address], 09/24/2022 13:10:22 09/24/19 23 09/24/2022 UA WITH CULTU RE REFLE X glucose NEGATI VE negati ve Not Available [facility] ([facility]) [address] [facility], [place], [address], 09/24/2022 13:10:22 09/24/19 23 09/24/2022 UA WITH CULTU RE REFLE X ketones NEGATI VE negati ve Not Available [facility] ([facility]) [address] [facility], [place], [address], 09/24/2022 13:10:22 09/24/19 23 09/24/2022 UA WITH CULTU RE REFLE X occult blood NEGATI VE negati ve Not Available [facility] ([facility]) [address] [facility], [place], [address], 09/24/2022 13:10:22 09/24/19 23 09/24/2022 UA WITH CULTU RE REFLE X bilirubin NEGATI VE negati ve Not Available [facility] ([facility]) [address] [place], [address], 09/24/2022 13:10:22 09/24/19 23 09/24/2022 UA WITH CULTU RE REFLE X urobilinogen ,semi-qn 0.2 mg/dL 0.2-1. 0 Not Available [facility] ([facility]) [address] [place], [address], 09/24/2022 13:10:22 09/24/19 23 09/24/2022 UA WITH CULTU RE REFLE X nitrite, urine NEGATI VE negati ve Not Available [facility] ([facility]) [address] [facility], [place], [address], 09/24/2022 13:10:22 09/24/19 23 09/24/2022 UA WITH CULTU RE REFLE X microscopic examination COMMEN T Micro scopi c not indic ated and not perfo rmed. Not Available [facility] ([facility]) [address] [facility], [place], [address], 09/24/2022 13:10:22 09/24/19 23 09/24/2022 UA WITH CULTU RE REFLE X urinalysis reflex COMMEN T This speci men will not refle x to a Urine Cultu re. Not Available [facility] ([facility]) [address] [facility], [place], [address], 09/24/2022 13:10:22 02/12/20 23 02/11/2023 LIPID PANEL cholesterol, total 193 mg/dL 100-19 9 Not Available [facility] [address] [place], [address], 02/11/2023 20:09:29 02/12/20 23 02/11/2023 LIPID PANEL triglyceride s 72 mg/dL 0-149 Not Available [facility] [address] [place], [address], 02/11/2023 20:09:29 02/12/20 23 02/11/2023 LIPID PANEL HDL cholesterol 75 mg/dL 40-999 Not Available [facility] [address] [place], [address], 02/11/2023 20:09:29 02/12/20 23 02/11/2023 LIPID PANEL VLDL cholesterol danielle 14 mg/dL 5-40 Not Available [facility] [address] [place], [address], 02/11/2023 20:09:29 02/12/20 23 02/11/2023 LIPID PANEL LDL chol calc (nih) 114 mg/dL 0-99 above high normal Not Available [facility] [address] [place] [address], [address], 02/11/2023 20:09:29 02/12/20 23 02/11/2023 COMP. METAB OLIC PANEL (14) glucose 92 mg/dL 70-99 Not Available [facility] [address] [place] [address], [address], 02/11/2023 20:09:30 02/12/20 23 02/11/2023 COMP. METAB OLIC PANEL (14) BUN 16 mg/dL 8-27 Not Available [facility] [address] [place] [address], [address], 02/11/2023 20:09:30 02/12/20 23 02/11/2023 COMP. METAB OLIC PANEL (14) creatinine 0.77 mg/dL 0.76-1 .27 Not Available [facility] [address] [place] [address], [address], 02/11/2023 20:09:30 02/12/20 23 02/11/2023 COMP. METAB OLIC PANEL (14) eGFR 84 >=60 Units for eGFR value s are mL/mi n/1.7 3 The eGFR Calcu latio n has not been valid ated for patie nts under the age of 18. If test resul ts are displ ayed for a patie nt under the age of 18, disre meenu that value . Not Available [facility] [address] [place] [address], [address], 02/11/2023 20:09:30 02/12/20 23 02/11/2023 COMP. METAB OLIC PANEL (14) BUN/creatini ne ratio 20 10-28 Not Available [facility] [place], [address], 02/11/2023 20:09:30 02/12/20 23 02/11/2023 COMP. METAB OLIC PANEL (14) sodium 145 mmol/ L 134-14 4 above high normal Not Available [facility] [address] [place], [address], 02/11/2023 20:09:30 02/12/20 23 02/11/2023 COMP. METAB OLIC PANEL (14) potassium 4.7 mmol/ L 3.5-5. 2 Not Available [facility] [address] [place], [address], 02/11/2023 20:09:30 02/12/20 23 02/11/2023 COMP. METAB OLIC PANEL (14) chloride 105 mmol/ L 96-106 Not Available [facility] [address] [place], [address], 02/11/2023 20:09:30 02/12/20 23 02/11/2023 COMP. METAB OLIC PANEL (14) carbon dioxide, total 29 mmol/ L 20-29 Not Available [facility] [address] [place], [address], 02/11/2023 20:09:30 02/12/20 23 02/11/2023 COMP. METAB OLIC PANEL (14) calcium 8.5 mg/dL 8.7-10 .3 below low normal Not Available [facility] [address] [place], [address], 02/11/2023 20:09:30 02/12/20 23 02/11/2023 COMP. METAB OLIC PANEL (14) protein, total 6.5 g/dL 6.0-8. 5 Not Available [facility] [address] [place], [address], 02/11/2023 20:09:30 02/12/20 23 02/11/2023 COMP. METAB OLIC PANEL (14) albumin 3.7 g/dL 3.8-4. 8 below low normal Not Available [facility] [address] [place], [address], 02/11/2023 20:09:30 02/12/20 23 02/11/2023 COMP. METAB OLIC PANEL (14) globulin, total 2.8 g/dL 1.5-4. 5 Not Available [facility] [address] [place], [address], 02/11/2023 20:09:30 02/12/20 23 02/11/2023 COMP. METAB OLIC PANEL (14) A/G ratio 1.0 1.2-2. 2 below low normal Not Available [facility] [address] [place] [address], [address], 02/11/2023 20:09:30 02/12/20 23 02/11/2023 COMP. METAB OLIC PANEL (14) bilirubin, total 0.2 mg/dL 0.0-1. 2 Not Available [facility] [address] [place] [address], [address], 02/11/2023 20:09:30 02/12/20 23 02/11/2023 COMP. METAB OLIC PANEL (14) alkaline phosphatase 80 IU/L 44-121 Not Available [facility] [address] [place], [address], 02/11/2023 20:09:30 02/12/20 23 02/11/2023 COMP. METAB OLIC PANEL (14) AST (SGOT) 10 IU/L 0-40 Not Available [facility] [address] [place] [address], [address], 02/11/2023 20:09:30 02/12/20 23 02/11/2023 COMP. METAB OLIC PANEL (14) ALT (SGPT) 6 IU/L 0-32 Not Available [facility] [address] [place] [address], [address], 02/11/2023 20:09:30 02/12/20 23 02/11/2023 CBC WITH DIFFE RENTI AL/PL ATELE T WBC 7.3 x10e3 /uL 3.4-10 .8 Not Available [facility] [address] [place], [address], 02/11/2023 20:09:31 02/12/20 23 02/11/2023 CBC WITH DIFFE RENTI AL/PL ATELE T RBC 4.54 x10e6 /uL 3.77-5 .28 Not Available [facility] [address] [place], [address], 02/11/2023 20:09:31 02/12/20 23 02/11/2023 CBC WITH DIFFE RENTI AL/PL ATELE T hemoglobin 11.2 g/dL 11.1-1 5.9 Not Available [facility] [address], [place], [address], 02/11/2023 20:09:31 02/12/20 23 02/11/2023 CBC WITH DIFFE RENTI AL/PL ATELE T hematocrit 36.6 % 34.0-4 6.6 Not Available [facility] [address] [place], [address], 02/11/2023 20:09:31 02/12/20 23 02/11/2023 CBC WITH DIFFE RENTI AL/PL ATELE T MCV 81 fL 79-97 Not Available [facility] [address] [place], [address], 02/11/2023 20:09:31 02/12/20 23 02/11/2023 CBC WITH DIFFE RENTI AL/PL ATELE T MCH 24.7 pg 26.6-3 3.0 below low normal Not Available [facility] [address] [place], [address], 02/11/2023 20:09:31 02/12/20 23 02/11/2023 CBC WITH DIFFE RENTI AL/PL ATELE T MCHC 30.6 g/dL 31.5-3 5.7 below low normal Not Available [facility] [address] [place], [address], 02/11/2023 20:09:31 02/12/20 23 02/11/2023 CBC WITH DIFFE RENTI AL/PL ATELE T RDW 15.8 % 11.5-1 4.5 above high normal Not Available [facility] [address] [place], [address], 02/11/2023 20:09:31 02/12/20 23 02/11/2023 CBC WITH DIFFE RENTI AL/PL ATELE T platelets 251 x10e3 /uL 150-45 0 Not Available [facility] [address] [place], [address], 02/11/2023 20:09:31 02/12/20 23 02/11/2023 CBC WITH DIFFE RENTI AL/PL ATELE T neutrophils 62 % notest b. Not Available [facility] [address] [place], [address], 02/11/2023 20:09:31 02/12/20 23 02/11/2023 CBC WITH DIFFE RENTI AL/PL ATELE T lymphs 26 % notest b. Not Available [facility] [address] [place], [address], 02/11/2023 20:09:31 02/12/20 23 02/11/2023 CBC WITH DIFFE RENTI AL/PL ATELE T monocytes 7 % notest b. Not Available [facility] [address] [place], [address], 02/11/2023 20:09:31 02/12/20 23 02/11/2023 CBC WITH DIFFE RENTI AL/PL ATELE T eos 5 % notest b. Not Available [facility] [address] [place], [address], 02/11/2023 20:09:31 02/12/20 23 02/11/2023 CBC WITH DIFFE RENTI AL/PL ATELE T basos 1 % notest b. Not Available [facility] [address] [place], [address], 02/11/2023 20:09:31 02/12/20 23 02/11/2023 CBC WITH DIFFE RENTI AL/PL ATELE T neutrophils (absolute) 4.5 x10e3 /uL 1.4-7. 0 Not Available [facility] [address] [place], [address], 02/11/2023 20:09:31 02/12/20 23 02/11/2023 CBC WITH DIFFE RENTI AL/PL ATELE T lymphs (absolute) 1.9 x10e3 /uL 0.7-3. 1 Not Available [facility] [address] [place], [address], 02/11/2023 20:09:31 02/12/20 23 02/11/2023 CBC WITH DIFFE RENTI AL/PL ATELE T monocytes(ab solute) 0.5 x10e3 /uL 0.1-0. 9 Not Available [facility] [address] [place], [address], 02/11/2023 20:09:31 02/12/20 23 02/11/2023 CBC WITH DIFFE RENTI AL/PL ATELE T eos (absolute) 0.3 x10e3 /uL 0.0-0. 4 Not Available [facility] [address] [place], [address], 02/11/2023 20:09:31 02/12/20 23 02/11/2023 CBC WITH DIFFE RENTI AL/PL ATELE T baso (absolute) 0.0 x10e3 /uL 0.0-0. 2 Not Available [facility] [address] [place], [address], 02/11/2023 20:09:31 02/12/20 23 02/11/2023 CBC WITH DIFFE RENTI AL/PL ATELE T immature granulocytes 0.3 % notest b. Not Available [facility] [address] [place], [address], 02/11/2023 20:09:31 02/12/20 23 02/11/2023 CBC WITH DIFFE RENTI AL/PL ATELE T immature grans (abs) 0.0 x10e3 /uL 0.0-0. 1 Not Available [facility] [address] [place], [address], 02/11/2023 20:09:31 02/12/20 23 02/11/2023 CBC WITH DIFFE RENTI AL/PL ATELE T NRBC 0 % 0-0 Not Available [facility] [address] [place], [address], 02/11/2023 20:09:31 02/12/20 23 02/12/2023 TSH RFX ON ABNOR MAL TO FREE T4 TSH 6.240 uIU/m L 0.450- 4.500 above high normal Not Available [facility] ([facility]) [address] [facility], [place], [address], 02/12/2023 08:27:54 02/12/20 23 02/12/2023 VITAM IN D, 25-HY DROXY vitamin D, [...] IOM (Inst itute of Medic ine). 2010. Giulianaa ry refer chelsie tegan es for calci um and Ana middleton [place]: [facility] . 2. Holic k MF, Binkl ey [place], Bisch off-F errar i LALA, et al. Evalu ation , treat ment, and preve ntion of vitam in D defic iency : an Endoc rine Socie ty clini danielle pract ice guide line. JCEM. 2010; 96(7) :1911 -30. Not Available [facility] ([facility]) [address] [facility], [place], [address], 02/12/2023 08:27:55 02/12/20 23 02/12/2023 T4F T4,free (direct) 1.17 NG/dL 0.82-1 .77 Not Available [facility] ([facility]) [address] [place], [address], 02/12/2023 08:27:55 02/12/20 23 02/11/2023 URINA LYSIS , ROUTI NE specific gravity 1.015 1.005- 1.030 Not Available [facility] [address] [place] [address], [address], 02/11/2023 20:09:30 02/12/20 23 02/11/2023 URINA LYSIS , ROUTI NE pH 7.0 5.0-7. 0 Not Available [facility] [address] [place], [address], 02/11/2023 20:09:30 02/12/20 23 02/11/2023 URINA LYSIS , ROUTI NE urine-color YELLOW yellow Not Available [facility] [address] [place], [address], 02/11/2023 20:09:30 02/12/20 23 02/11/2023 URINA LYSIS , ROUTI NE appearance CLEAR Not Available [facility] Department [address], [place], [address], 02/11/2023 20:09:30 02/12/20 23 02/11/2023 URINA LYSIS , ROUTI NE WBC esterase Commen t NEGAT FLOR Not Available [facility] [address], [place], [address], 02/11/2023 20:09:30 02/12/20 23 02/11/2023 URINA LYSIS , ROUTI NE protein Commen t NEGAT FLOR Not Available [facility] [address] [place], [address], 02/11/2023 20:09:30 02/12/20 23 02/11/2023 URINA LYSIS , ROUTI NE glucose Commen t NEGAT FLOR Not Available [facility] [address] [place], [address], 02/11/2023 20:09:30 02/12/20 23 02/11/2023 URINA LYSIS , ROUTI NE ketones Commen t NEGAT FLOR Not Available [facility] [address] [place], [address], 02/11/2023 20:09:30 02/12/20 23 02/11/2023 URINA LYSIS , ROUTI NE occult blood Commen t NEGAT FLOR Not Available [facility] [address] [place], [address], 02/11/2023 20:09:30 02/12/20 23 02/11/2023 URINA LYSIS , ROUTI NE bilirubin Commen t NEGAT FLOR Not Available [facility] [address] [place], [address], 02/11/2023 20:09:30 02/12/20 23 02/11/2023 URINA LYSIS , ROUTI NE urobilinogen ,semi-qn 0.2 eu/dL 0.2-1. 0 Not Available [facility] [address] [facility] [place], [address], 02/11/2023 20:09:30 02/12/20 23 02/11/2023 URINA LYSIS , ROUTI NE nitrite, urine Commen t negati ve NEGAT FLOR Not Available [facility] [address], [place], [address], 02/11/2023 20:09:30 09/05/19 24 09/06/2023 COMP. METAB OLIC PANEL (14) glucose 98 mg/dL 70-99 Not Available [facility] ([facility]) [address] [place], [address], 09/06/2023 08:23:58 09/05/19 24 09/06/2023 COMP. METAB OLIC PANEL (14) BUN 10 mg/dL 8-27 Not Available [facility] ([facility]) [address] [place], [address], 09/06/2023 08:23:58 09/05/19 24 09/06/2023 COMP. METAB OLIC PANEL (14) creatinine 0.66 mg/dL 0.57-1 .00 Not Available [facility] ([facility]) [address] [facility], [place], [address], 09/06/2023 08:23:58 09/05/19 24 09/06/2023 COMP. METAB OLIC PANEL (14) eGFR 96 mL/mi n/1.7 3 >59 Not Available [facility] ([facility]) [address] [place], [address], 09/06/2023 08:23:58 09/05/19 24 09/06/2023 COMP. METAB OLIC PANEL (14) BUN/creatini ne ratio 15 03-06 Not Available [facility] ([facility]) [address] [place], [address], 09/06/2023 08:23:58 09/05/19 24 09/06/2023 COMP. METAB OLIC PANEL (14) sodium 141 mmol/ L 134-14 4 Not Available [facility] ([facility]) [address] [facility] [place], [address], 09/06/2023 08:23:58 09/05/19 24 09/06/2023 COMP. METAB OLIC PANEL (14) potassium 4.4 mmol/ L 3.5-5. 2 Not Available [facility] ([facility]) [address] [facility] [place], [address], 09/06/2023 08:23:58 09/05/19 24 09/06/2023 COMP. METAB OLIC PANEL (14) chloride 105 mmol/ L 96-106 Not Available [facility] ([facility]) [address] [facility], [place], [address], 09/06/2023 08:23:58 09/05/19 24 09/06/2023 COMP. METAB OLIC PANEL (14) carbon dioxide, total 24 mmol/ L 20-29 Not Available [facility] ([facility]) [address] [facility] [place], [address], 09/06/2023 08:23:58 09/05/19 24 09/06/2023 COMP. METAB OLIC PANEL (14) calcium 8.9 mg/dL 8.7-10 .3 Not Available [facility] ([facility]) [address] [place], [address], 09/06/2023 08:23:58 09/05/19 24 09/06/2023 COMP. METAB OLIC PANEL (14) protein, total 7.1 g/dL 6.0-8. 5 Not Available [facility] ([facility]) [address] [facility] [place], [address], 09/06/2023 08:23:58 09/05/19 24 09/06/2023 COMP. METAB OLIC PANEL (14) albumin 3.8 g/dL 3.9-4. 9 below low normal Not Available [facility] ([facility]) [address] [place], [address], 09/06/2023 08:23:58 09/05/19 24 09/06/2023 COMP. METAB OLIC PANEL (14) globulin, total 3.3 g/dL 1.5-4. 5 Not Available [facility] ([facility]) [address] [facility] [place], [address], 09/06/2023 08:23:58 09/05/19 24 09/06/2023 COMP. METAB OLIC PANEL (14) bilirubin, total 0.2 mg/dL 0.0-1. 2 Not Available [facility] ([facility]) [address] [place], [address], 09/06/2023 08:23:58 09/05/19 24 09/06/2023 COMP. METAB OLIC PANEL (14) alkaline phosphatase 94 IU/L 44-121 Not Available [facility] ([facility]) [address] [facility] [place], [address], 09/06/2023 08:23:58 09/05/19 24 09/06/2023 COMP. METAB OLIC PANEL (14) AST (SGOT) 11 IU/L 0-40 Not Available [facility] ([facility]) [address] [facility] [place], [address], 09/06/2023 08:23:58 09/05/19 24 09/06/2023 COMP. METAB OLIC PANEL (14) ALT (SGPT) 7 IU/L 0-32 Not Available [facility] ([facility]) [address] [facility] [place], [address], 09/06/2023 08:23:58 09/05/19 24 09/06/2023 HEMOG LOBIN A1C hemoglobin A1C 5.9 % 4.8-5. 6 above high normal Predi abete s: 5.7 - 6.4 Diabe shan: >6.4 Glyce ronnie contr ol for adult s with diabe shan: <7.0 Not Available [facility] ([facility]) [address] [place], [address], 09/06/2023 08:23:59 09/05/19 24 09/06/2023 VITAM IN B12 vitamin B12 215 pg/mL 232-12 45 below low normal Not Available [facility] ([facility]) [address] [facility], [place], [address], 09/06/2023 08:24:00 09/05/1909/06/2023 CBC, PLATE LET, NO DIFFE RENTI AL WBC 6.0 x10e3 /uL 3.4-10 .8 Not Available [facility] ([facility]) [address] [place], [address], 09/06/2023 08:24:00 09/05/19 24 09/06/2023 CBC, PLATE LET, NO DIFFE RENTI AL RBC 4.98 x10e6 /uL 3.77-5 .28 Not Available [facility] ([facility]) [address] [place], [address], 09/06/2023 08:24:00 09/05/1909/06/2023 CBC, PLATE LET, NO DIFFE RENTI AL hemoglobin 12.3 g/dL 11.1-1 5.9 Not Available [facility] ([facility]) [address] [place], [address], 09/06/2023 08:24:00 09/05/1909/06/2023 CBC, PLATE LET, NO DIFFE RENTI AL hematocrit 39.8 % 34.0-4 6.6 Not Available [facility] ([facility]) [address] [place], [address], 09/06/2023 08:24:00 09/05/19 24 09/06/2023 CBC, PLATE LET, NO DIFFE RENTI AL MCV 80 fL 79-97 Not Available [facility] ([facility]) [address] [place], [address], 09/06/2023 08:24:00 09/05/1909/06/2023 CBC, PLATE LET, NO DIFFE RENTI AL MCH 24.7 pg 26.6-3 3.0 below low normal Not Available [facility] ([facility]) [address] [place], [address], 09/06/2023 08:24:00 09/05/1909/06/2023 CBC, PLATE LET, NO DIFFE RENTI AL MCHC 30.9 g/dL 31.5-3 5.7 below low normal Not Available [facility] ([facility]) [address] [place], [address], 09/06/2023 08:24:00 09/05/1909/06/2023 CBC, PLATE LET, NO DIFFE RENTI AL RDW 15.3 % 11.7-1 5.4 Not Available [facility] ([facility]) [address] [place], [address], 09/06/2023 08:24:00 09/05/1909/06/2023 CBC, PLATE LET, NO DIFFE RENTI AL platelets 291 x10e3 /uL 150-45 0 Not Available [facility] ([facility]) [address] [place], [address], 09/06/2023 08:24:00 09/05/1909/06/2023 VITAM IN D, 25-HY [...] um and D. Christin middleton [place]: [facility] . 2. Ke salomon MF, Pollo ey [place], Ofelia off-F errar i LALA, et al. Evalu ation , treat ment, and preve ntion of vitam in D defic iency : an Endoc rine Socie ty clini danielle pract ice guide line. JCEM. 2010; 96(7) :1911 -30. Not Available [facility] ([facility]) [address] [facility], [place], [address], 09/06/2023 08:24:01 12/31/19 24 01/01/2024 TSH RFX ON ABNOR MAL TO FREE T4 TSH 0.985 uIU/m L 0.450- 4.500 Not Available [facility] ([facility]) [address] [facility], [place], [address], 01/01/2024 11:14:31 08/17/19 23 08/16/2022 CT, abdom en + pelvi s, w/ contr ast No observ ation record ed. [facility] [address] [place], [address], 08/24/2022 17:49:21 09/03/1909/02/2022 US, duple x, arter ial, lower extre mity No observ ation record ed. [facility] [address] [place], [address], 01/14/2023 16:13:12 09/03/1909/02/2022 US, groin No observ ation record ed. [facility] ([facility]) [address] [place], [address], 01/14/2023 16:13:12 01/30/20 23 01/28/2023 bone densi ty No observ ation record ed. [facility] [address] [place], [address], 02/10/2023 13:35:52 02/06/20 23 02/05/2023 CT, abdom en + pelvi s, w/ contr ast No observ ation record ed. [facility] [address] [place], [address], 02/13/2023 09:15:21 09/12/19 24 09/12/2023 myoca rdial perfu ian study w/ eject ion fract ion (PROC ) No observ ation record ed. [facility] [address], [place], [address], 02/10/2024 15:16:39 09/26/19 24 09/26/2023 MAMMO , scree garfield, bilat eral No observ ation record ed. [facility] [address] [place], [address], 02/10/2024 15:16:39 01/06/20 24 01/06/2024 PFT, compl ete No observ ation record ed. [address], [place], [address], 02/10/2024 15:16:39 03/23/19 25 03/22/2024 US, axill a No observ ation record ed. [place] [id number] [facility] [address], [place], [address], 03/30/2024 08:58:01 Result Notes None recorded. Problems Name Problem SNOMED Code Status Onset Date Resolution Date Notes Provider Name and Address Organization Details Recorded Time Acquired hypothyroi dism 088335825 Active 2018 Not Available [facility] 3 06:33:13 History of hepatitis C 1257883147327 1 Active 2018 Not Available [facility] 3 06:33:14 Osteoarthr itis of knee 669900826 Active 2018 Not Available [facility] 3 06:33:14 Vertigo 501125666 Active 2018 Not Available [facility] 3 06:33:14 Benign essential hypertensi on 4129336 Active 2018 Not Available [facility] 3 06:33:14 Foot pain 91033882 Active 2018 Not Available [facility] 3 06:33:14 Transfusio n of blood product declined for samaritan reason 440145031 Active 2018 Not Available [facility] 3 06:33:14 Gastroesop hageal reflux disease 153448117 Active 2019 Not Available [facility] 3 06:33:14 Disorder of vitamin B12 857956990 Active 2019 Not Available [facility] 3 06:33:14 Peripheral vascular disease 034059514 Active 2020 Not Available [facility] 3 06:33:14 Allergy to contrast media 432590210 Active 2022 Not Available [facility] 3 06:33:14 Peripheral arterial occlusive disease 612077402 Active 2022 Not Available [facility] 3 06:33:14 Family history of malignant neoplasm of pancreas 578052835 Active 2022 Not Available [facility] 3 06:33:14 Obstructiv e sleep apnea syndrome 55263971 Active 2023 Charlene Vogel MD Attn: Accounting ,[address] [place], [address] , [place] - [facility] 4 18:36:32 Family history of Cardiovasc ular disease 086578143 Active 2023 Charlene Vogel MD Attn: Accounting ,[address] [place], [address] , [place] 4 18:36:35 Sickle cell trait 69669744 Active Not Available [facility] 3 06:33:14 Family history of Gallbladde r disease 563125428 Active Not Available [facility] 3 06:33:14 Chest pain 48393146 Active Not Available [facility] 3 06:33:14 Dizziness 064465539 Active Not Available [facility] 3 06:33:14 Hypertensi ve disorder 25301207 Active Not Available [facility] 3 06:33:14 Arthritis 9937491 Active Not Available [facility] 3 06:33:14 Problem Notes None recorded. Procedures Surgical History Date Name Laterality Status Provider Name and Address Organization Details Recorded Time 02/15/20 22 colonoscopy completed Charlene Vogel MD Attn: Accounting, [address] [place], [address], [facility] 01/27/2023 08:42:31 02/15/20 21 OPEN RECURRENT INCISIONAL HERNIA REPAIR (SURG) completed Charlene Vogel MD Attn: Accounting, [address] [place], [address], [facility] 02/15/2021 09:18:29 02/19/20 19 Date of Last Pap Smear completed Yin Lacy MA [facility] 02/18/2019 14:27:56 10/27/19 19 Most Recent Mammogram completed Yin Lacy MA [facility] 02/18/2019 14:28:01 10/27/19 19 Date of Last Mammogram completed Yin Lacy MA [facility] 02/18/2019 14:28:21 07/12/19 17 capsule endoscopy completed Charlene Vogel MD Attn: Accounting, [address] [place], [address], [facility] 07/12/2020 18:43:43 07/11/19 17 EGD completed Charlene Vogel MD Attn: Accounting, [address] [place], [address], [facility] 07/12/2020 18:43:15 03/29/19 17 colonoscopy completed Charlene Vogel MD Attn: Accounting, [address] [facility], [place], [address], [facility] 07/17/2021 14:25:45 03/10/18 83 Tubal Ligation completed [facility] 12/26/2014 14:49:26 03/10/18 82 Dilation and Curettage completed [facility] 12/26/2014 14:49:52 03/10/18 80 Caesarean Section completed [facility] 12/26/2014 14:49:26 03/10/18 78 Caesarean Section completed Jay Fenton MA [facility] 12/26/2014 14:40:40 Hernia Repair completed Charlene Vogel MD Attn: Accounting, [address] [place], [address], [facility] 09/15/2018 14:15:19 cholecystectomy completed Charlene Vogel MD Attn: Accounting, [address] [place], [address], [facility] 09/15/2018 14:15:54 Imaging Results Imaging Date Name Status LastModified by [facility]iz [facility] Details LastModified Time 08/16/2022 CT, abdomen + pelvis, w/ contrast completed [facility] [address] [place], [address], 08/24/2022 17:49:21 09/02/2022 US, duplex, arterial, lower extremity completed [facility] [address] [place], [address], 01/14/2023 16:13:12 09/02/2022 US, groin completed [facility] ([facility]) [address] [place], [address], 01/14/2023 16:13:12 01/28/2023 bone density completed [facility] [address] [place], [address], 02/10/2023 13:35:52 02/05/2023 CT, abdomen + pelvis, w/ contrast completed [facility] [address] [place], [address], 02/13/2023 09:15:21 09/12/2023 myocardial perfusion study w/ ejection fraction (PROC) completed [facility] [address], [place], [address], 02/10/2024 15:16:39 09/26/2023 MAMMO, screening, bilateral completed [facility] [address] [place], [address], 02/10/2024 15:16:39 01/06/2024 PFT, complete completed [address], [address], 02/10/2024 15:16:39 03/22/2024 US, axilla completed [address], [address], 03/30/2024 08:58:01 Procedure Notes None recorded. Medical Equipment None Reported. Allergies Allergen ID Allergen Name Allergen Category Reaction Reaction Severity Criticality Documentation Date Start Date Code Code System Note Provider Name and Address Organization Details Recorded Time 625921 shellfish derived food,medi cation Not available Not available Not available 09/15/2018 [address] [address] [place], [place] - [facility] 9 14:01:39 Medications Name Sig Start Date Stop Date [...] 1 TABLET BY MOUTH EVERY DAY DIRECTED FOR HYPOTHYR OIDISM active Not Available Not Available No t [...] Updated DateTime 3 160.02 cm 47.3 kg/m2 563828. 16 g 16 /min 97 % 97 % 64 /min 126 mm[Hg] 76 mm[Hg] Myesha Armando [facility] 3 12:35:26 Date Recorded Body height Body mass index (BMI) Body weight Respiratory rate Heart rate Oxygen saturation Oxygen saturation in Arterial blood by Pulse oximetry Systolic blood pressure Diastolic blood pressure Provider Name and Address Organization Details Last Updated DateTime 3 160.02 cm 48 kg/m2 457069. 96 g 18 /min 60 /min 99 % 99 % 124 mm[Hg] 82 mm[Hg] Myesha Armando MA [facility] 3 16:02:58 Date Recorded Body height Body mass index (BMI) Body weight Oxygen saturation Oxygen saturation in Arterial blood by Pulse oximetry Heart rate Respiratory rate Systolic blood pressure Diastolic blood pressure Provider Name and Address Organization Details Last Updated DateTime 4 160.02 cm 49.6 kg/m2 128402. 86 g 98 % 98 % 66 /min 16 /min 114 mm[Hg] 70 mm[Hg] Myesha Armando MA [facility] 4 15:10:14 Date Recorded Body height Body mass index (BMI) Body weight Heart rate Respiratory rate Oxygen saturation Oxygen saturation in Arterial blood by Pulse oximetry Systolic blood pressure Diastolic blood pressure Provider Name and Address Organization Details Last Updated DateTime 4 160.02 cm 49.6 kg/m2 879479. 86 g 67 /min 18 /min 98 % 98 % 118 mm[Hg] 74 mm[Hg] AUGUSTUS Funes [facility] 4 15:02:50 Social History Question Answer Notes LastModified by Organizat ion Details LastModified Time Tobacco Smoking Status Former Smoker Quit age 30 Paris mcknight [facility] 12/26/2014 14:54:53 Do You Have An Advance Directive? No Information not available 07/12/2020 Are You Blind Or Do You Have Difficulty Seeing? No Information not available 07/12/2020 What Is Your Level Of Caffeine Consumption? Occasional Information not available 07/12/2020 How Much Tobacco Do You Chew? None Information not available 09/15/2018 In The 14 Days Before Symptom Onset, Have You Had Close Contact With A Laboratory-jaydei ed COVID-19 While That Case Was Ill? No Information not available 07/12/2020 In The 14 Days Before Symptom Onset, Have You Had Close Contact With A Person Who Is Under Investigation For COVID-19 While That Person Was Ill? No Information not available 07/12/2020 Have You Been To An Area Known To Be High Risk For COVID-19? Yes Information not available 07/12/2020 Are You Deaf Or Do You Have Serious Difficulty Hearing? No Information not available 07/12/2020 What Type Of Diet Are You Following? REGULAR Information not available 09/15/2018 Which Illicit Or Recreational Drugs Have You Used? Patient Denied. Information not available 12/26/2014 Education 12 1 Year Of College Information [...] How Much Tobacco Do You Smoke? No [email or web address] Information not available 12/26/2014 Has Tobacco Cessation Counseling Been Provided? No [email or web address] Information not available 09/15/2018 On What Date Was Tobacco Cessation Counseling Provided? 03/14/2022 Delmer Answered No To The Tobacco Cessation Counseling Provided Question On 09/15/2018. Information not available 03/14/2022 Sex: Female Functional Status Question Answer Note LastModified by Organizat ion Details LastModified Time Do you or have you ever used any other forms of tobacco or nicotine? No Information not available 03/14/2022 What is your level of alcohol consumption? Occasional Social drinker Information not available 12/26/2014 Are you currently employed? No Information not available 12/26/2014 Are you able to care for yourself? 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 Never used electronic cigarettes Information not available 02/21/2020 What is your exercise level? None Information [...] Problems Y Kidney or Bladder Problems N GI Problems N Lung Disease N Depression N Acne N Breast Problem N Eating Disorder N Anemia N Anesthesia Complications N Headaches/Migraines N Anxiety Disorder N Diabetes N Ovarian Cancer N Blood Transfusions N Arthritis Y Polyps [...] toxoid, unspecified formulation 4 completed Not Available [facility] 02/07/2023 06:33:16 Influenza, split virus, quadrivalent, preservative 0 completed Not Available [facility] 03/07/2023 14:49:48 SARS-COV-2 (COVID-19) vaccine, UNSPECIFIED 1 completed Not Available [facility] 03/07/2023 14:49:48 SARS-COV-2 (COVID-19) vaccine, UNSPECIFIED 1 completed Not Available [facility] 03/07/2023 14:49:48 COVID-19, mRNA, LNP-S, PF, 30 mcg/0.3 mL dose 1 completed Not Available [facility] 02/07/2023 06:33:15 Influenza, split virus, quadrivalent, preservative 6 completed Not Available [facility] 02/07/2023 06:33:15 COVID-19, mRNA, LNP-S, PF, 30 mcg/0.3 mL dose 1 completed Not Available [facility] 02/07/2023 06:33:15 pneumococcal polysaccharide PPV23 2 completed Not Available [facility] 02/07/2023 06:33:16 Pneumococcal conjugate PCV 13 1 completed Not Available [facility] 02/07/2023 06:33:16 COVID-19, mRNA, LNP-S, PF, 30 mcg/0.3 mL dose 1 completed Not Available [facility] 02/07/2023 06:33:15 Influenza, split virus, quadrivalent, PF 0 completed Not Available [facility] 02/07/2023 06:33:16 Influenza, split virus, quadrivalent, preservative 9 completed Not Available [facility] 03/27/2019 02:38:09 Influenza, high-dose, quadrivalent, PF 3 completed Charlene Vogel MD Attn: Accounting[address] [place], [address], [facility] 03/14/2022 19:32:24 Past Encounters Encounter ID Performer Location Encounter Start Date Encounter Closed Date Diagnosis/Indication Diagnosis SNOMED-CT Code Diagnosis ICD10 Code Diagnosis Note [id number] Paris Tobar MD [address] [address] 12/26/2014 13:42:42 12/26/2014 15:22:01 Gynecologic examination 39616550 Z01.025 [id number] Charlene Vogel MD [facility] (Adult Med) [address] [place] [phone] 09/15/2018 13:25:11 09/16/2018 09:00:54 Screening for malignant neoplasm of breast 354042287 Z12.31 General ex amination of patient 983441476 Z00.01 Acquired hypothyroidism 571289590 E03.9 History of hepatitis C 6081032889 9101 Z86.19 She was treated but livunat lennie had BM suppressio n from [place]. Osteoarthr itis of knee 954231193 M17.0 Previously seen by orthopedic s and it was felt that she needed to lose weight before surgery. She was previously in pain management until when she changed her insurance and had obtained benefit from viscosuppl ementation . Benign ess ential hypertension 7316426 I10 Screening for malignant neoplasm of cervix 499437988 Z12.4 Body mass index 30+ - obesity 063539725 Z68.43 Foot pain 46744660 M79.6 71 M79.672 PF vs bone spurs Vertigo 776858449 R42 Gastroesop hageal reflux disease 531742200 K21.9 Administra tion of diphtheria, pertussis, and tetanus vaccine 503998666 Z23 She has asked to defer this until the next visit [id number] Charlene Vogel MD [facility] (Adult Med) [address] [place] [phone] 0 11/10/2018 12:15:14 11/10/2018 12:52:02 Osteoarthritis of knee 142886500 M17.0 Previously seen by orthopedic s and it was felt that she needed to lose weight before surgery. She was previously in pain management until when she changed her insurance and had obtained benefit from viscosuppl ementation . Chronic anemia 084658164 D64.9 Initially felt to be due to BM suppressio n from [facility] in 2016, her hemoglobin was apparently as low as 4, requiring EES and a NH admission. Transfusio n of blood product declined for samaritan reason 647893258 Z53.1 [id number] MD [facility] (Adult Med) [address] [place] [phone] 12/01/2018 15:15:07 12/02/2018 08:39:54 Megaloblastic anemia due to vitamin B>12< deficiency 55841365 D53.1 She was on B12 injections in the past Chronic anemia 580530965 D64.9 Initially felt to be due to BM suppressio n from [facility] in 2016, her hemoglobin was apparently as low as 4, requiring EES and a NH admission. Colonoscop y report from [facility] Administra tion of influenza vaccine 39945593 Z23 Chest pain 28768720 R07. 2 [id number] MD [facility] (Adult Med) [address] [place] [address] [phone] 12/31/2018 14:52:30 01/01/2019 08:23:49 Disorder of vitamin B12 025543103 E53.8 [id number] MD [facility] (Adult Med) [address] [place] [address] [phone] 12/31/2018 15:19:45 01/01/2019 08:25:32 Chest wall pain 210049889 R07.89 [place] [employer]GER data was reviewedSh ort course of tramadol Cardiovasc ular stress test abnormal 726246995 R94.39 Follow up with the cardiologi [id number] SUSANNE THEODORE (PROOFER APPRENTICE) [address] [place] [address] [phone] 0 02/18/2019 13:30:31 02/18/2019 14:58:39 Gynecologic examination 77340647 Z01.419 Venereal d isease screening 726052537 Z11.3 Body mass index 40+ - severely obese 956818269 Z68.43 [id number] MD [facility] (Adult Med) [address] [place] [address] [phone] 0 03/11/2019 11:57:00 03/12/2019 08:40:35 Gastroesophageal reflux disease 131822702 K21.9 She cannot tolerate Diclofenac without her PPI Acquired hypothyroidism 973034674 E03.9 Long-term drug therapy 589800020 Z79.899 Sickle cell trait 704365 00 D57.3 Disorder o f vitamin B12 568815235 E53.8 [id number] MD [facility] (Adult Med) [address] [place] [address] [phone] 11/12/2019 08:18:23 11/16/2019 20:13:00 Benign essential hypertension 0913255 I10 Osteoarthr itis of knee 880630287 M17.0 Previously seen by orthopedic s and it was felt that she needed to lose weight before surgery. She was previously in pain management until when she changed her insurance and had obtained benefit from viscosuppl ementation . Acquired hypothyroidism 088866739 E03.9 Dyspnea 960406685 R06.00 Chronic nocturnal wheezing, coughing, orthopnea, PND. -Apneic episodes. Responsive to her inhalerSti ll not clear if this is a cardiac or a respirator y issue.She really needs an office visit.ER with worsening SOBTTE incomplete reportCard iology evaluation 12/2018CXR 12/31/2018 [id number] MD [facility] (Adult Med) [address] [place] [address] [phone] 02/21/2020 08:16:54 02/22/2020 10:51:03 Disorder of vitamin B12 992339163 E53.8 Recheck, if it is still low, she may need monthly IM B12 at home Screening for malignant neoplasm of colon 551982486 Z12.11 Vitamin D deficiency 347 43532 E55.9 [id number] MD [facility] (Adult Med) [address] [place] [address] [id number] 07/12/2020 14:00:41 07/13/2020 08:18:54 Peripheral vascular disease 044983180 I73.9 Osteoarthr itis of knee 139240106 M17.0 Previously seen by orthopedic s, it was felt that she needed to lose weight before surgery. She was also previously in pain management until when she changed her insurance and had obtained benefit from viscosuppl ementation . Vitamin B1 2 deficiency (non anemic) 88933208 E53.8 Pain in lower limb 62307 006 M79.604 Acquired hypothyroidism 218300453 E03.9 Medication monitoring 39 7579887 Z51.81 [id number] Charlene Vogel MD [facility] (Adult Med) [address] [place] [address] [phone] 08/21/2020 15:34:41 08/22/2020 12:15:50 Disorder of vitamin B12 199651246 E53.8 Monthly IM B12 Inguinal lymphadenopathy 325777171 R59.0 Pap 2019 She told me I don't have to do that no more with my age Colonoscop y? US Acquired hypothyroidism 606125945 E03.9 Pain of ri ght hip joint 6086543225 26250 M25.551 Lumbar radiculopathy 128 957980 M54.16 Body mass index 40+ - severely obese 102524821 Z68.43 Screening for malignant neoplasm of breast 146872421 Z12.31 Peripheral vascular disease 888616334 I73.9 [id number] Charlene Vogel MD [facility] (Adult Med) [address] [place] [address] [phone] 11/02/2020 08:35:23 11/05/2020 19:31:09 Pain of right hip joint 3237271917 42031 M25.551 Clavicle pain 888693966 M25.519 OV needed Inguinal lymphadenopathy 093184663 R59.0 Pap 2019 She told me I don't have to do that no more with my age Colonoscop y report is still needed The [place] confirms an enlarged LN, reactive vs malignant Disorder o f vitamin B12 135500865 E53.8 Monthly IM B12 Acquired hypothyroidism 198596995 E03.9 Pain in lower limb 80171 006 M79.167 [id number] MD Sukhjinder Allen (Adult Med) [address] [place] [address], [place] [address] 12/14/2020 15:09:15 12/19/2020 08:59:17 Inguinal lymphadenopathy 388472120 R59.0 Pap 2019 She told me I don't have to do that no more with my age A colonoscop y cannot be located, she will need another one EGD and Capsule endoscopy 07/11/2016In view of her inguinal lymphadeno atul and the abdominal mass, she needs a CT scan A & P Disorder o f vitamin B12 084992853 E53.8 Monthly IM B12 Acquired hypothyroidism 800125231 E03.9 Pain of ri ght hip joint 1381748131 16076 M25.551 Referred to Orthopedic s Screening for malignant neoplasm of colon 110904893 Z12.11 Administra tion of pneumococcal vaccine 16766222 Z23 Neck swelling 470507972 R22.1 Abdominal mass 700035642 R19.00 [id number] Jose Conway MD [facility] [address] [place] [address] 01/09/2021 10:52:52 01/11/2021 14:48:27 Recurrent hernia of anterior abdominal wall 085069791 K43.9 patient with symptomati c recurrent ventral hernia, amenable to open repair. Risks include bleeding, recurrence , pain, and mesh infection. Patient is in agreement with the plan of care. Will proceed to the OR as soon as is convenient . [id number] [facility] [address] [place] [address] 02/28/2021 09:41:42 03/06/2021 09:31:27 Recurrent ventral incisional hernia 244540653 K43.2 s/p open repair Postoperative seroma 429 874652 T81.89XA 1) steri strips in place, shower daily2) use gauze/band aid as needed should and small drainage occur3) seroma should absorb over coming weeks4) if large drainage or fever occurs, call office5) no lifting over 30 lbs until Mar) moisturize incision after steri strips fall off [id number] MD Sukhjinder Allen (Adult Med) [address] [place] [address] 05/09/2021 14:58:11 05/10/2021 08:43:28 Administration of pneumococcal vaccine 90863890 Z23 Disorder o f vitamin B12 390713931 E53.8 Monthly IM B12 Swelling of lower leg 44 2014742 R22.41 Acquired hypothyroidism 845402690 E03.9 Sickle cell trait 861674 00 D57.3 [id number] MD Sukhjinder Allen (Adult Med) [address] [place] [address] 07/10/2021 15:10:32 07/11/2021 10:07:08 Inguinal lymphadenopathy 893319042 R59.0 Pap 2019 She told me I [...] colonoscop y report, consider a LN Bx. [id number] MD Sukhjinder Allen (Adult Med) [address] [place] [address] 07/12/2021 14:38:44 07/13/2021 21:16:52 Disorder of vitamin B12 836856714 E53.8 Monthly IM B12 [id number] MD Sukhjinder Allen (Adult Med) [address] [place] [address] 11/29/2021 15:52:26 11/30/2021 14:16:58 Diverticulosis of colon 047551792 K57.30 A colonoscop y is due Weight loss 90170026 R63 .4 -12lbsInte ntional Body mass index 40+ - severely obese 135068507 Z68.43 Inguinal lymphadenopathy 046824988 R59.0 Pap 2019 She told me I [...] for a LN Bx. Influenza vaccination declined 457979363 Z28.21 SARS-CoV-2 antigen vaccine declined 9437632578 Z28.21 Low back pain 055324773 M54.50 Screening mammography of bilateral breasts 4715369989 95891 Z12.31 Disorder o f vitamin B12 240775230 E53.8 Monthly IM B12 Acquired hypothyroidism 453713595 E03.9 Medication monitoring 39 7968430 Z51.81 Impaired mobility 737040 05 Z74.09 [id number] Charlene Vogel MD [facility] (Adult Med) [address] [place] [address] 12/26/2021 15:20:35 12/27/2021 09:55:04 Disorder of vitamin B12 561037787 E53.8 Monthly IM B12 [id number] Charlene Vogel MD [facility] (Adult Med) [address] [place] [address] 03/14/2022 09:06:02 03/15/2022 16:33:23 Inguinal lymphadenopathy 507889161 R59.0 Her colonoscop y was apparently negative, [...] need for a LN Bx. Acquired hypothyroidism 719671196 E03.9 Laboratory test result abnormal 926040447 R89.9 Pain in lower limb 04279 006 M79.604 Administra tion of influenza vaccine 65564554 Z23 Disorder o f vitamin B12 226667669 E53.8 Monthly IM B12 Chronic in stability of knee 631095831 M23.51 History of fall 95284589 9 Z91.81 Onychomyco sis of toenails 369373095 B35.1 [id number] Charlene Vogel MD [facility] (Adult Med) [address] [place] [address] 08/20/2022 12:27:21 08/21/2022 16:46:14 Follow-up visit 932352119 Z09 Imaging re sult abnormal 073305670 R93.89 CT scan 08/16/2022;S /P UH repair with a meshUrinar y bladder wall thickening Constipati onDDDOA Inguinal lymphadenopathy 242013446 R59.0 Colonoscop y 03/29/2016, internal hemorrhoid s [...] LN Bx. Disorder o f vitamin B12 619447633 E53.8 Monthly IM B12 Disorder o f urinary bladder 62709312 N32.9 [id number] Charlene Vogel MD [facility] ([facility]ult [facility]) [address] [place] [address] 01/14/2023 15:33:33 01/15/2023 12:49:59 Inguinal lymphadenopathy 190917190 R59.0 Seen by the general surgeon on [...] Body mass index 40+ - severely obese 064320876 Z68.43 Obesity 559446234 E66.9 Peripheral arterial occlusive disease 549846032 I73.9 Mild disease in the LLE General ex amination of patient 687118377 Z00.01 Abdominal pain 24282694 R10.9 LUQ abdominal painColono scopy 2016 and possibly 2021 or 2022EGD 2017CT scan needed Postmenopausal state 764 01957 Z78.0 Acquired hypothyroidism 073897085 E03.9 Family his tory of malignant neoplasm of pancreas 521064146 Z80.0 Disorder o f vitamin B12 945562859 E53.8 Monthly IM B12 [id number] MD Sukhjidner Allen (Adult Med) [address] [place] [address] 03/07/2023 14:42:25 03/11/2023 16:08:59 Disorder of vitamin B12 384772594 E53.8 Monthly IM B12 [id number] MD Sukhjinder Allen (Adult Med) [address] [place] [address] 08/19/2023 14:34:35 08/20/2023 20:00:10 Inguinal lymphadenopathy 781796417 R59.[address] scan done on 02/05/2023 [...] have been done [place] [address] Ahmed according to the notes from Dr Tejeda, [...] the need for a LN Bx. Obesity 063483060 E66.9 Acquired hypothyroidism 856213745 E03.9 Labs 02/11/2023 TSH 6.24, on Levothyrox ine 125 mcg po dailyOn Levothyrox ine to 150 mcg po dailyLabs Disorder o f vitamin B12 170365636 E53.8 Check the B12 levels, the plan was monthly IM B12, although she has not received a dose since February,. Screening mammography 24 994637 Z12.31 Osteopenia 270733237 M85 .80 Obstructiv e sleep apnea syndrome 03706535 G47.33 Atypical chest pain 1025 75078 R07.89 General ex amination of patient 330901278 Z00.01 Family his tory of Cardiovascular disease 392784031 Z82.49 [id number] Charlene Vogel MD [facility] (Adult Med) [address] [place] [address] 02/10/2024 14:46:57 02/12/2024 11:25:07 Morbid obesity 873232361 E66.01 Body mass index 40+ - severely obese 837994982 Z68.42 Acquired hypothyroidism 080020519 E03.9 Restart Levothyrox ineLabs in 6 weeks OV 08/19/2023L abs 02/11/2023 TSH 6.24, on Levothyrox ine 125 mcg po dailyOn Levothyrox ine to 150 mcg po dailyLabs Obstructiv e sleep apnea syndrome 23288675 G47.33 Disorder o f lipid metabolism 848086826 E78.9 Axillary lymphadenopathy 721563734 R59.0 MMG 09/26/2023 Health Concerns Section Related Observation LastModified by Organization Detai ls LastModified Time None Recorded Concern Status LastModified by Organization Details LastModified Time None Recorded Advance Directives Directive N: Payers Encounter Date Sequence Insurance Name Policy Number Policy Cespedes Covered Member ID Cespedes Member ID Guarantor Name 08/20/2022 2 [place] WHEN [place]ARE OR MEDICARE REPLACEMENT PRIMARY) Delilah Segovia [id number] Delilahmary grace Segovia 08/20/2022 1 [facility] (MEDICARE REPLACEMENT/A DVANTAGE - HMO) [id number] Delilahelin Segovia [id number] Delilahelin Segovia 01/14/2023 2 [place] OR MEDICARE REPLACEMENT PRIMARY) Delilahelin Segovia [id number] Delilahelin Segovia 01/14/2023 1 [facility] (MEDICARE REPLACEMENT/A DVANTAGE - HMO) [id number] Delilahelin Segovia [id number] Delilah Segovia 03/07/2023 2 [place] OR MEDICARE REPLACEMENT PRIMARY) Delilahelin Segovia [id number] Delilahelin Segovia 03/07/2023 1 [facility] (MEDICARE REPLACEMENT/A DVANTAGE - HMO) [id number] Delilahelin Segovia [id number] Delilahelin Segovia 08/19/2023 1 [facility] (MEDICARE REPLACEMENT/A DVANTAGE - HMO) [id number] Delilahelin Segovia [id number] Delilah Segovia 08/19/2023 2 [facility] (MEDICAID HMO) [id number] Delilahmary grace Segovia [id number] Delilahmary grace Segovia 02/10/2024 1 [facility] (MEDICARE REPLACEMENT/A DVANTAGE - HMO) [id number] Delilahmary grace Segovia [id number] Delilah Segovia Notes Date Note Type Note [...] year. Charlene Vogel MD Attn: [address]ing[address] [facility] , [place], [address], [facility] 08/20/2022 13:45:28 01/14/2023 text/html Abdominal PainReported bypatient.Location:[facility] Q Quality:pain Severity:severe Duration:intermittent Onset/Timing:worse; wax/wane Modifying Factors:movement Associated Symptoms:no fever; no chills; no blood in the urine; no heartburn; no shortness of breath Other:denies possible He told me he didn't see anything wrong with it I am having a pain right here He said I have Sciatica [facility] came out, ....said I need [...] Sciatica. Charlene Vogel MD Attn: Accounting[address] [facility], [place], [address], [facility] 01/14/2023 20:08:35 08/19/2023 text/html Angina/Chest PainReported bypatient.Quality:pre [...] and she has established care with the deputy assessor Charlene Vogel MD Attn: Accounting[address] [facility], [place], [address], [place] [facility] 08/19/2023 18:39:30 02/10/2024 text/html [...] the interim, she was seen by the restaurant delivery driver and she had a different test instead of a cardiac cath. She noticed a knot in her left axilla recently Charlene Vogel MD Attn: [address]ing[address] [place], [address], [facility] 02/10/2024 19:56:28 OBGyn Episode No OBEpisode recorded.
--- OUTSIDE RECORDS SUMMARY | 2024-07-28 13:22 | XMS_ITS | Continuity of Care Document ---
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 [address] [place], [place], [address]. tel:[phone] [facility], [address], [place], [place], [address] , tel:[phone] Rachel MERLE HY KID W CR KID I-OLD-RFJNEWO DEFIC NECLONG-TERM USE MEDS NECDMII RENL NT ST UNCNTRLDSCREEN MAL NEOP-RECTUMCHRO KIDNEY DIS STAGE IIGENERAL OSTEOARTHROSIS 200 [address] Fish Teresa. [address] [place], [place], [address]. tel:[phone] [email or web address], [address], [place], [place], [address] , [place] tel: [phone] [place] SPRAIN OF BACK NOS 9[address] 7 Fish Teresa. [address] [place], [place], [address]. tel:[phone] [email or web address], [address], [place], [place], [address] , [place] tel: [phone] [place] LOC PRIM OSTEOART-L/LEG Sep-1 7200 7 [facility]. [address] [place], [place], [address]. tel:[phone] [email or web address], [address], [place], [place], [address] , [place] tel: [phone] [place] PAIN IN LIMBCHEST PAIN NECSKIN SENSATION DISTURBJOINT PAIN-L/LEG Sep-1 3200 7 [facility]. [address] [place], [place], [address]. tel:[phone] [email or web address], [address], [place], [place], [address] , [place] tel: [phone] [place] FEM STRESS INCONTINENCE Sep-1 1200 7 [facility]. [address] [place], [place], [address]. tel:[phone] [email or web address], [address], [place], [place], [address] , [place] tel: [phone] [place] ABN LIVER FUNCTION STUDYDISACCHARIDASE DEF/MALAB Sep-0 5200 7 [facility]. [address] [place], [place], [address]. tel:[phone] [email or web address], [address], [place], [place], [address] , [place] tel: [phone] Rachel SCREEN LIPOID DISORDERS Feb- 6 Abe Marianoorah. [address] [place], [place], [address]. tel:[phone] [facility], [address], [place], [place], [address] , tel: [phone] Rachel No Information Feb- 6 Abe Hunterh. [address] [place], [place], [address]. tel:[phone] Family History Family Member Type Diagnosis Age At Onset No Information Payers Payer name Insurance type Covered green party ID Authoriza tion(s) No Information Social History [...]
--- OUTSIDE RECORDS SUMMARY | 2024-07-28 13:22 | XMS_ITS | Data Portability ---
Author Organization [place] - [facility] [employer], Main Office Address [address] [place] [address] Care Team Providers Care Drafter Patent Name Role Phone SUMMER CURRAN Primary Care Provider SUMMER CURRAN Referring Provider [phone] Assessment Encounter Date Assessment Date Assessment LastModified by Organization Details LastModified Time 10/01/2023 10/01/2023 Time spent with patient included: [...] of 42 minutes. Not available 12/22/2023 11:03:17 05/05/2024 05/05/2024 HPI: 68 year old female presents with bilateral knee pain secondary to osteoarthritis. We saw her last in March, at which time she received a Synvisc-One injection. Reports the injection did not provide any relief. She has been seeing a different orthopedic provider who sent her to a pain management to receive Supariz injection from Dr. Queen. Reports that she had significant relief with this injection but is unable to get another injection due to insurance. Reports pain today as 8/10. Taking diclofenac as needed for pain. She currently lives a sedentary lifestyle but would like to go back to the gym. Wants to try gel injections again. Trying to avoid TKA. ROS: Per patient questionnaire Physical Exam: General: Normal appearance. No acute distress. Inspection: No evidence of swelling, erythema, bruising or deformity. Palpation: tenderness inferior to the patella bilaterally. Lateral medical joint line of left knee. ROM: 5-110 bilaterally Gait: Analgic gait Motor: 5/5 strength. Sensation: Sensation intact. Imaging: Xray reviewed. Moderate to severe osteoarthritis in the knees, more pronounced on the right, with:Medial joint space narrowing (right> left). Subchondral sclerosis. Marginal osteophyte formation. No evidence of acute bony injury Assessment & Plan: Discussed that we do not carry the gel shots in the office and would have to go to the speciality pharmacy first before we could inject. Wanted something for pain now, so we proceeded with bilateral cortisone injection. Patient tolerated injection. Patient will monitor site for signs of infection and report any adverse side effects. Follow Up: Call when ready to receive gel injections. All questions were answered. Patient verbalized understanding of treatment plan [email or web address] Not available 05/09/2024 23:42:26 05/18/2024 05/18/2024 05/03/2024: Chol 216 A1C 5.7 MCV 78.4 [email or web address] Not available 05/18/2024 16:02:28 Plan of Treatment Reminders Order Date Submit Date Provider Last Modified By Organization Details Last Modified Time Details Appointments Any 15 2024 02:30P M Summer akhtar MD Not available Not available Not available Lab vitamin D, 25-hydrox y, total, serum [address] (Lab), [facility] [address], [place], [address], 05/26/2024 16:52:14 microalbu min, urine [address] (Lab), [facility] [address], [place], [address], 05/27/2024 09:21:53 HbA1c (hemoglob in A1c), blood [address] (Lab), [address] [place] [address] [address], [place], [address], 05/27/2024 09:22:01 CMP, serum or plasma [address] [place] [address] (Lab), [address] [place] [address] [address], [place], [address], 05/26/2024 16:52:24 CBC w/ auto diff [address] [place] [address] (Lab), [address] [place] [address] [address], [place], [address], 05/26/2024 16:52:32 lipid panel, serum [address] [place] [address] (Lab), [address] [place] [address] [address], [place], [address], 05/26/2024 16:52:41 TSH + free T4, serum [address] [place] [address] (Lab), [address] [place] [address] [address], [place], [address], 05/26/2024 16:52:49 microalbu min, urine [address] [place] [address] (Lab), [address] [place] [address] [address], [place], [address], 05/26/2024 09:06:29 HbA1c (hemoglob in A1c), blood [address] [place] [address] (Lab), [address] [place] [address] [address], [place], [address], 05/26/2024 09:06:29 vitamin D, 25-hydrox y, total, serum [address] [place] [address] (Lab), [address] [place] [address] [address], [place], [address], 05/26/2024 09:06:28 CMP, serum or plasma [address] [place] [address] (Lab), [facility] [address], [place], [address], 05/03/2024 23:01:37 CBC w/ auto diff [address] (Lab), [address] [place] [address] [address], [place], [address], 05/26/2024 09:06:29 lipid panel, serum [address] (Lab), [address] [place] [address] [address], [place], [address], 05/26/2024 09:06:29 TSH + free T4, serum [address] (Lab), [address] [place] [address] [address], [place], [address], 05/26/2024 09:06:29 creatinin e, serum or plasma 2023 024 [facility] (Lab), [address] [place], [address], 01/09/2024 11:59:30 vitamin E, serum 2023 024 [facility] (Lab), [address] [place], [address], 01/09/2024 11:59:48 bun (blood urea nitrogen) , serum or plasma [address] (Lab), [address] [place], [address], 02/04/2024 15:34:16 folate, RBC [address] (Lab), [address] [place], [address], 02/04/2024 15:34:16 hemoglobi n + hematocri t, blood 2023 024 [email or web address] 2 [facility] (Lab), [address] [place], [address], 02/04/2024 15:34:16 magnesium , serum or plasma 2023 024 [email or web address] 2 [facility] (Lab), [address] [place], [address], 02/04/2024 15:34:16 ESR (erythroc yte sedimenta tion rate), blood 2023 024 [email or web address] 2 [facility] (Lab), [address] [place], [address], 02/04/2024 15:34:16 vitamin B12, serum 2023 024 [email or web address] 2 [facility] (Lab), [address] [place], [address], 02/04/2024 15:34:17 Referral podiatris t referral - Please call patient to schedule an appointme nt. Thank you. 2024 025 [email or web address] Andrew Rivero DPM, [address], [place], [address], 05/18/2024 16:37:59 cardiolog ist referral - Please call patient to schedule an appointme nt. Thank you. 2024 025 IVONNE Leyva MD, [address], [place], [address], 05/18/2024 16:59:56 podiatris t referral - Please call patient to schedule an appointme nt. Thank you. 2024 025 [email or web address] Andrew Rivero DPShirley, [address], [address], [place], [address], 05/26/2024 09:06:55 orthopedi c surgeon referral - Please call patient to schedule an appointme nt. Thank you. 2024 025 JENNIFER Guillen MD, [address] [facility], [place], [address], 05/09/2024 23:45:23 cardiolog ist referral - Please call patient to schedule an appointme nt. Thank you. 2024 025 [email or web address] [facility] Referral Fax Line, [address], [place], [address], 05/26/2024 09:06:54 Procedures injection /aspirati on joint/bur sa (PROC) 2024 025 [email or web address] 1 In-Office Order, Internal Use Only DO Not Attach Compendium DO Not Attach Compendium, Do Not Delete/merge, [id number] 05/05/2024 16:01:59 polysomno graphy, diagnosti c (PROC) - Approved for scheduled DOS [address] [facility] [place], [address] [facility], [place], [address], 10/30/2023 11:07:21 Surgeries None recorded. Imaging MAMMO, screening , digital, bilateral - Please call patient to schedule. [address], [address], [place], [address], 05/18/2024 17:45:25 DEXA, axial skeleton - Please call patient to schedule. [address], [address] [facility] [address], [place], [address], 05/18/2024 17:45:53 XR, knee 2024 025 [email or web address] [facility] [place], [address] [facility] [address], [place], [address], 05/06/2024 08:38:48 MAMMO, screening , digital, bilateral - Please call patient to schedule. 2024 025 [email or web address] [facility], [address], [place], [address], 05/10/2024 17:26:46 DEXA, axial skeleton - Please call patient to schedule. 2024 025 [email or web address] [facility], [address], [place], [address], 07/08/2024 16:05:52 polysomno gram, titration study - Please call patient to schedule. [address]23 [address]24 [place] [phone] [facility] ([facility]), [address] [facility], [place], [address], 02/09/2024 18:23:31 Medication Orders bupivacai ne HCl 0.5 % (5 mg/mL) injection solution 2024 025 [id number], [address] , [place], [place], [id number], 05/18/2024 15:38:14 Kenalog 10 mg/mL suspensio n for injection [address] [id number], [address] , [place], [place], [id number], 05/18/2024 15:39:15 Patient TargetsNo targets recorded. Patient Instructions Encounter Date Encounter Id Patient Instructions Last Modified By Organization Details Last Modified Time 10/01/2023 [id number] complete PFT w/ post bronchodilator spirometry* - No auth required [place] [phone] Not available 12/31/2023 08:40:17 04/08/2024 [id number] diabetic eye exam* [email or web address] Not avail able 04/08/2024 17:01:16 05/05/2024 [id number] viscosupplementa tion treatment* - Pt will call when ready for synvisc one, then we can send the script to the specialty pharmacy [email or web address] Not available 05/10/2024 17:13:37 05/18/2024 [id number] diabetic eye exam* [email or web address] Not avail able 05/18/2024 16:15:51 Reason for Referral Orthopedic Surgeon Referral for Pain of right knee joint Please call patient to schedule an appointment. Thank you. Referring Physician: Summer Curran Internal Medicine, Encounter Date: 04/08/2024 Dev Ops Engineer Referral for Es sential hypertension Please call patient to schedule an appointment. Thank you. Referring Physician: Summer Curran Internal Medicine, Encounter Date: 04/08/2024 Forge Operator Referral for Pred iabetes Please call patient to schedule an appointment. Thank you. Referring Physician: Summer Curran Internal Medicine, Encounter Date: 04/08/2024 Dev Ops Engineer Referral for Es sential hypertension Please call patient to schedule an appointment. Thank you. Referring Physician: Summer Curran Internal Medicine, Encounter Date: 05/18/2024 Forge Operator Referral for Pred iabetes Please call patient to schedule an appointment. Thank you. Referring Physician: Summer Curran Internal Medicine, Encounter Date: 05/18/2024 Results Created Date Observation Date Name Description Value Unit Range Abnormal Flag Note LastModifiedBy Organization Detail LastModifiedTime 11/21/1911/18/2023 polys omnog stanley , diagn ostic (PROC ) No observ ation record ed. [email or web address] [facility] [address] [place], [address], 12/29/2023 08:57:50 01/21/20 24 01/06/2024 compl ete PFT w/ post [facility] hodil ator cande metry * No observ ation record ed. [facility] [address], [place], [address], 01/21/2024 14:25:01 04/12/19 25 03/22/2024 imagi ng/di agnos tic resul t No observ ation record ed. [facility] [address], [place], [address], 04/12/2024 14:17:36 05/05/19 25 XR, knee No observ ation record ed. [email or web address] [facility] [place] [address] [facility] [address], [place], [address], 05/05/2024 15:19:40 Result Notes None recorded. Problems Name Problem SNOMED Code Status Onset Date Resolution Date Notes Provider Name and Address Organization Details Recorded Time Lymphadenop athy 91475224 Active 2022 Maverick ceron MD [address], [place], [address], [employer] 3 14:10:58 Obstructive sleep apnea syndrome 93107362 Active 2023 Heather Osborn NP [address], [place], [address], [employer] 4 12:00:34 Sleep apnea 52639631 Active 2023 Antonia Thompson MA null, [employer] 4 10:16:25 Hypersomnia with sleep apnea 68636780 Active 2023 Antonia Thompson MA null, [employer] 4 10:16:25 Hypersomnia 55013948 Active 2023 Antonia Thompson MA null, [employer] 4 10:16:25 Periodic limb movement disorder 165917812 Active 2023 Heather Osborn NP [address], [place], [address], [employer] 4 10:29:14 Vitamin B deficiency 33680041 Active 2023 Heather Osborn NP [address], [place], [address], [facility] [employer] [facility] [employer] [facility] 4 09:17:50 Essential hypertensio n 74852785 Active 2024 Summer akhtar MD [address], [place], [address], [facility] [employer] [facility] [employer] [facility] 5 16:34:24 Hypothyroid ism 28720541 Active 2024 Summer kahtar MD [address], [place], [address], [facility] [employer] [facility] [employer] [facility] 5 16:34:35 Pain of right knee joint 3441555739662 00 Active 2024 Summer akhtar MD [address], [place], [address], [facility] [employer] [facility] [employer] [facility] 5 16:42:10 Low back pain 225401829 Active 2024 Summer akhtar MD [address], [place], [address], [employer] [facility] [employer] [facility] 5 16:44:55 Prediabetes 694211120 Active 2024 Summer akhtar MD [address], [place], [address], [facility] [employer] [facility] [employer] [facility] 5 16:54:26 Axillary lymphadenop athy 375809570 Active 2024 Summer akhtar MD [address], [place], [address], [facility] [employer] [facility] [employer] [facility] 5 17:06:44 Pain of bilateral knee joints 1383249932345 04 Active 2024 Brooke mcknight, [place] - [facility] [employer] [facility] 5 15:19:20 Bilateral osteoarthri tis of knees 2480123321584 07 Active 2024 Carline Winston PA-C [address], [place], [address], [employer] 5 23:42:16 Vitamin D deficiency 30182091 Active 2024 Summer akhtar MD [address], [place], [address], [employer] 5 14:54:23 Hyperlipide sully 32466409 Active 2024 Summer akhtar MD [address], [place], [address], [employer] 16:06:44 Microcytosi s 834158351 Active 2024 Summer akhtar MD [address], [place], [address], [employer] 16:06:59 Notes:[facility] diagnostic sleep study 11/18/23 sleep onset = 2.5 minutes, REM onset = 127.5 minutes, AHI = 6, REM AHI = 51, PLMI = 12 Medical History: Obesity with mild OSAHS, AHI = 6, 11/18/23 Hypothyroidism Hypertension OA Procedure History: Abdominal wall herniorrhaphy Cholecystectomy Problem Notes None recorded. Procedures Surgical History Date Name Laterality Status Provider Name and Address Organization Details Recorded Time 05/05/19 25 Corticosteroid Injection completed Carline Winston PA-C [address], [place], [address], [email or web address] 05/09/2024 23:39:01 02/15/20 21 other completed Alise Roland MA [employer] 09/23/2022 11:59:16 07/12/19 17 capsule endoscopy completed Alise Roland MA [facility] [employer] [facility] 09/23/2022 11:59:49 03/29/19 17 Colonoscopy completed Alise Roland MA [place] [employer] [facility] [employer] 09/23/2022 12:00:36 03/10/18 84 Gallbladder Surgery completed Not Available [facility] 05/08/2022 23:57:05 Hernia Repair completed Not Available [facility] 05/08/2022 23:57:05 section completed Not Available [facility] 05/08/2022 23:57:05 Tubal Ligation completed Alise Roland MA [facility] 09/23/2022 12:00:57 Dilation and curettage completed Alise Roland MA [facility] 09/23/2022 12:01:40 section completed Alise Roland MA [facility] 09/23/2022 12:02:18 surgical repair completed Mabel sotelo MA [facility] 10/01/2023 11:31:38 Imaging Results Imaging Date Name Status LastModified by Organization Details LastModified Time 11/18/2023 polysomnography, diagnostic (PROC) completed [address] [place] [address] [facility] Center [address] [place], [address], 12/29/2023 08:57:50 01/06/2024 complete PFT w/ post bronchodilator spirometry* completed [facility] [address] [place] [address] [place] [address], [address], 01/21/2024 14:25:01 03/22/2024 imaging/diagnostic result active [address] [place] [address], [address], 04/12/2024 14:17:36 05/05/2024 XR, knee completed [email or web address] [facility] [place] [address] [facility] [address], [place], [address], 05/05/2024 15:19:40 Procedure Notes None recorded. Medical Equipment None Reported. Allergies Allergen ID Allergen Name Allergen Category Reaction Reaction Severity Criticality Documentation Date Start Date Code Code System Note Provider Name and Address Organization Details Recorded Time 87278 shellfish derived food,medi cation Not available Not available Not available 09/23/2022 32885 UNK Alise Roland MA null, [place] - [facility] [employer] [facility] 3 11:53:38 75050 Iodinated contrast media (substanc e) medicatio n rash severe Not available 04/08/2024 05473 2003 SNOMED AUGUSTUS Sher null, [place] - [facility] [employer] [facility] 5 16:23:51 Medications Name Sig Start Date [...] completed Not Available Not Available Not Available bupivacai ne HCl 0.5 % (5 mg/mL) injection solution Take 4 mL by injectio n route. 05/18 completed Not Available Not Available Not Available peg-elect rolyte solution 420 gram oral solution MIX AND DRINK 1/2 AT 5 PM ON 02/13 AND 1/2 AT 5 AM ON 02/14 completed Not Available Not Available Not Available aspirin 81 mg tablet,de layed release TAKE 1 TABLET BY MOUTH DAILY 05/18 completed Not Available Not Available Not Available [...] Kenalog 10 mg/mL suspensio n for injection Take 8 mL by injectio n route. 05/18 completed NDC: 0003-049 4-20 Not Available Not Available Not [...] MOUTH EVERY DAY DIRECTED FOR HYPOTHYR OIDISM 2024 active Not Available Not Available Not Avai lable metoprolo l tartrate 50 mg tablet TAKE [...] Not Available potassium active Not Available Not Kaele ilable Not Available Vitamin D3 05/18 completed Not Available Not Available Not Available Multivita min 50 Plus active Not Available Not Available Not Available lidocaine (PF) 10 mg/mL (1 %) injection solution In office injectio n administ ered by the provider 04/03 completed NDC: 0409-427 6-17 Not Available Not Available Not Available Synvisc-O ne 48 mg/6 mL intra-art icular syringe Injectio ns given in the office by the doctor 12/21 completed NDC: 91052042 001 Not Available Not Available Not Available levothyro xine 112 mcg capsule TAKE 1 CAPSULE BY MOUTH DAILY 09/24 completed Not Available Not Available Not Available Paxlovid 300 mg (150 mg x 2)-100 mg tablets in a dose pack TK 2 NIRIATRE LVIR TS AND 1 RITONAVI R T [...] Updated DateTime 4 160.02 cm 48.7 kg/m2 860773. 9 g 98.2 [degF] 62 /min 95 % 95 % 110 mm[Hg] 270 mm[Hg] Mabel Hagan MA [employer] 4 11:34:15 Date Recorded Body height Body mass index (BMI) Body weight Body temperature Heart rate Oxygen saturation Oxygen saturation in Arterial blood by Pulse oximetry Systolic blood pressure Diastolic blood pressure Provider Name and Address Organization Details Last Updated DateTime 4 160.02 cm 49.4 kg/m2 689337. 27 g 98 [degF] 70 /min 99 % 99 % 112 mm[Hg] 72 mm[Hg] Antonia Thompson MA [employer] 4 10:21:51 Date Recorded Body height Body mass index (BMI) Body weight Body temperature Heart rate Systolic blood pressure Diastolic blood pressure Provider Name and Address Organization Details Last Updated DateTime 5 160.02 cm 49.4 kg/m2 678332. 27 g 97.8 [degF] 72 /min 128 mm[Hg] 70 mm[Hg] AUGUSTUS Sher [employer] 5 16:32:54 Date Recorded Body height Body mass index (BMI) Body weight Provider Name and Address Organization Details Last Updated DateTime 05/05/2024 160.02 cm 50.7 kg/m2 192995.42 g Brooke Kevin [employer] 05/05/2024 15:17:04 Date Recorded Body height Body mass index (BMI) Body weight Body temperature Heart rate Systolic blood pressure Diastolic blood pressure Provider Name and Address Organization Details Last Updated DateTime 5 160.02 cm 50.1 kg/m2 489496. 64 g 97.4 [degF] 72 /min 118 mm[Hg] 60 mm[Hg] AUGUSTUS Sher [place] - [facility] [employer] [facility] 15:42:43 Social History Question Answer Notes LastModified by Organizat ion Details LastModified Time Tobacco Smoking Status Never Smoker Not Available [facility] 05/08/2022 23:56:34 Do You Have An Advance Directive? Yes Information not available 04/08/2024 Are You Blind Or Do You Have [...] No Information not available 10/01/2023 Are You Deaf Or Do You Have Serious Difficulty Hearing? Yes Information not available 04/08/2024 What Type Of Diet Are You Following? REGULAR Information not available 09/23/2022 What Is The Highest Grade Or Level Of School You Have Completed Or The Highest Degree You Have Received? [id number] 1 Year Of College Information not available [...] Do You Have A Medical Power Of Stars Specialist? Yes Information not available 04/08/2024 Do You Have Moisture Problems In Your Home? No Information not available 12/22/2023 What Was The Date Of Your Most Recent Tobacco Screening? 05/18/2024 Information not available 05/18/2024 How Many Children Do You Have? 2 [...] Yes Information not available 10/01/2023 Do You Use Sunscreen Routinely? No Information not available 10/01/2023 Has Tobacco Cessation Counseling Been Provided? No N/a Information not available 04/08/2024 Have You Recently Traveled Abroad? No Information not available 10/01/2023 Do You Have Difficulty Walking Or Climbing Stairs? Yes Information not available 04/08/2024 Do You Have Any Dietary Restrictions? No Information not available 09/23/2022 Sex: Female Functional Status Question Answer Note LastModified by Organizat ion Details LastModified Time Do you use any illicit or recreational drugs? No Information not available 12/22/2023 Do you or have you ever used any other forms of tobacco or nicotine? No Information not available 09/23/2022 What is your level of alcohol consumption? 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 Not that aware of Information not available 12/22/2023 Are you able to walk? YESASSIST sometimes uses walker Information not available 04/08/2024 Do you have difficulty doing errands alone? No Information not available 04/08/2024 Are you able to care for yourself? Yes Information not available 04/08/2024 Do you have difficulty dressing or bathing? Yes Information not available 04/08/2024 What is your exercise level? None Information not available 09/23/2022 Mental Status Question Answer Note LastModified by Organizat ion Details LastModified Time Do you feel stressed (tense, restless, nervous, or anxious, or unable to sleep at night)? [id number] Information not available 10/01/2023 Do you have difficulty concentrating, remembering or making decisions? No Information no t available 04/08/2024 Family History Relationship Description Onset Age of this Age Resolved Age Notes LastModified by Organization Details LastModified Time Mother Heart disease [id number] Not available 05/08/2022 23:57:07 Mother Family history of malignant neoplasm [id number] Not available 05/08/2022 23:57:07 Mother Hypertensive disorder [id number] Not available 05/08/2022 23:57:07 Father Heart disease MIGRATION.[id number] Not available 05/08/2022 23:57:07 Son Heart disease [id number] Not available 05/08/2022 23:57:07 Son Hypertensive disorder [id number] Not available 05/08/2022 23:57:07 Brother Family history of malignant neoplasm [id number] Not available 05/08/2022 23:57:07 Sister Disorder of thyroid gland Not available 2024 16:28:20 Sister Malignant tumor of thyroid gland Not available 2024 16:28:38 Daughter Disorder of thyroid gland Not available 2024 16:28:41 Medical History Condition Response SKIN PROBLEMS Y ARTHRITIS Y OSTEOPOROSIS Y ANEMIA/BLOOD DISORDER Y HYPERTENSION Y HEPATITIS / LIVER DISEASE Y Gynecological HistoryNo gynecological history recorded. Obstetrics History GPAL:G 0 P 0 0 0 0 Immunizations Vaccine Type Date Status Note Provider Nam e and Address Organization Details Recorded Time Influenza, split virus, quadrivalent, preservative 9 completed Manuela Shannon RMA null, [facility] 05/18/2024 15:40:37 Influenza, split virus, quadrivalent, preservative 0 completed Manuela Shannon RMA null, [facility] 05/18/2024 15:40:14 Influenza, split virus, quadrivalent, preservative 6 completed Manuela Shannon RMA null, [facility] 05/18/2024 15:40:37 Influenza, high-dose, quadrivalent, PF 3 completed Manuela Shannon RMA null, [facility] 05/18/2024 15:40:37 COVID-19, mRNA, LNP-S, PF, 30 mcg/0.3 mL dose 1 completed Manuela Shannon RMA null, [facility] 05/18/2024 15:40:37 COVID-19, mRNA, LNP-S, PF, 30 mcg/0.3 mL dose 1 completed Manuela Shannon RMA null, [facility] 05/18/2024 15:40:37 COVID-19, mRNA, LNP-S, PF, 30 mcg/0.3 mL dose 1 completed Manuela Shannon RMA null, [facility] 05/18/2024 15:40:37 SARS-COV-2 (COVID-19) vaccine, UNSPECIFIED 1 completed Manuela Shannon RMA null, [facility] 05/18/2024 15:40:14 SARS-COV-2 (COVID-19) vaccine, UNSPECIFIED 1 completed Manuela Shannon RMA null, [facility] 05/18/2024 15:40:14 pneumococcal polysaccharide PPV23 2 completed Manuela Shannon RMA null, [facility] 05/18/2024 15:40:37 tetanus toxoid, unspecified formulation 4 completed Manuela AUGUSTUS Shannon null, [facility] 05/18/2024 15:40:14 Pneumococcal conjugate PCV 13 1 completed Manuela [place], RMEsperanza null, [facility] 05/18/2024 15:40:14 Influenza, split virus, quadrivalent, PF 0 completed Manuela Shannon AUGUSTUS null, [facility] 05/18/2024 15:40:37 Past Encounters Encounter ID Performer Location Encounter Start Date Encounter Closed Date Diagnosis/Indication Diagnosis SNOMED-CT Code Diagnosis ICD10 Code Diagnosis Note [id number] Oleg Caldwell MD [facility] [address] 01/02/2021 00:00:00 01/02/2021 10:53:27 [id number] Oleg Caldwell MD [facility] [address] 9 04/03/2021 00:00:00 04/03/2021 10:54:36 [id number] Maverick casey MD [facility] [address] [place] [address] 09/24/2022 11:51:12 09/25/2022 15:25:18 Lymphadenopathy 42457128 R59.0 Groin [id number] Heather Osborn NP [facility] [place] [address] [address] 10/01/2023 11:01:21 10/02/2023 09:03:08 Obstructive sleep apnea syndrome 41466000 G47.33 Sleep study order today-Epwo rth 13Discusse [...] and symptoms of concern Dyspnea at rest 21978312 7 R06.00 .continue care with cardiology PFT orderSleep study order Ex-smoker 2601142 Z87.[address] 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 [id number] Heather Osborn NP [facility] [place] [address] [address] 12/22/2023 10:00:05 12/22/2023 11:07:55 Hypersomnia with sleep apnea 24984044 G47.19 Obstructiv e sleep apnea syndrome 21736692 G47.33 G47.36 [facility] diagnostic sleep study 11/18/23 sleep onset = [...] of concern Periodic l imb movement disorder 427494947 G47.61 Study from 2023 reviewed in detailMild PLMD with arousal index of 12/hourLab order today for PLMD [id number] Summer carias MD [facility] Internal Med [address] [facility], [address] [place] [address] 04/08/2024 16:10:04 04/08/2024 17:03:53 Screening - NAD 795738380 Z13.9 C-scope: Dr Oro get the report, [...] her understand ing of above Essential hypertension 17045953 I10 On metoprolol 50mg bidSees cardiology [facility] Hypothyroidism 43273506 E03.9 On levothyrox ine 150mcgsGet labs Screening for osteoporosis 174066491 Z13.820 Screening mammography 24 893109 Z12.31 Pain of ri ght knee joint 8915308555 [address] Caldwell in the pastWill refer to Dr Guillen Low back pain 522597205 M54.50 On flexerillT bay as needed Prediabetes 307502216 R7 3.03 Axillary lymphadenopathy 190401354 R59.0 Seen by her prior PCP, now is s/p US axilla, get records History of hepatitis C 0766405528 9101 Z86.19 As per history it was treated, get CMP Vitamin D deficiency 347 47531 E55.9 [id number] Cricket Guillen MD [facility] Ortho Lela Roque [address] [place] [address] 05/05/2024 14:51:53 05/05/2024 16:06:41 Pain of bilateral knee joints 1759478492 58201 M25.561 M25.562 Bilateral osteoarthritis of knees 6063245486 74170 M17.0 [id number] Summer carias MD [facility] Internal Med [address] [facility], [address] [place] [address] 05/18/2024 14:59:04 05/18/2024 16:16:48 Screening - NAD 036260478 Z13.9 C-scope: Dr Oro get the report, [...] her understand ing of above Essential hypertension 65062086 I10 On metoprolol 50mg bidSees cardiology [facility] Hypothyroidism 37452484 E03.9 On levothyrox ine 150mcgsGet labs Screening for osteoporosis 723944557 Z13.820 Screening mammography 24 745131 Z12.31 Pain of ri ght knee joint 8911069705 [address] Caldwell in the pastScott [facility] 05/05/2204 Low back pain 922869928 M54.50 On flexerillT bay as needed Prediabetes 681441083 R7 3.03 Get labs Axillary lymphadenopathy 038669743 R59.0 Seen by her prior PCP, now is s/p US axilla History of hepatitis C 9266011816 9101 Z86.19 As per history it was treated, get CMP Vitamin D deficiency 347 42784 E55.9 Hyperlipidemia 89319778 E78.5 Get on crestor, declined 05/18/2024 , wants to diet and cut back on her 'chocolate cakes'Get labs Microcytosis 927421013 R 71.8 Not anemic, does well, repeat the labs Health Concerns Section Related Observation LastModified by Organization Detai ls LastModified Time None Recorded Concern Status LastModified by Organization Details LastModified Time None Recorded Advance Directives Directive Y: Payers Encounter Date Sequence Insurance Name Policy Number Policy Cespedes Covered Member ID Cespedes Member ID Guarantor Name 10/01/2023 1 [facility] (MEDICARE REPLACEMENT/A DVANTAGE - PPO) [id number] Delilah Segovia [id number] Delilah Segovia 10/01/2023 2 [facility] (MEDICAID HMO) [id number] Delilahmary grace Segovia [id number] Delilah Segovia 12/22/2023 1 [facility] (MEDICARE REPLACEMENT/A DVANTAGE - PPO) [id number] Delilahmary grace Segovia [id number] Delilah Segovia 12/22/2023 2 [facility] (MEDICAID HMO) [id number] Delilahmary grace Segovia [id number] Delilahelin Segovia 04/08/2024 1 [facility] (MEDICARE REPLACEMENT/A DVANTAGE - PPO) [id number] Delilahmary grace Segovia [id number] Delilah Segovia 04/08/2024 3 [place] WHEN MEDICARE OR MEDICARE REPLACEMENT PRIMARY) Delilah Segovia [id number] Delilah Segovia 05/05/2024 1 [facility] (MEDICARE REPLACEMENT/A DVANTAGE - PPO) [id number] Delilahmaryg race Segovia [id number] Delilahmary grace Segovia 05/05/2024 2 [facility] (MEDICAID HMO) [id number] Delilahmary grace Segovia [id number] Delilah Segovia 05/18/2024 1 [facility] (MEDICARE REPLACEMENT/A DVANTAGE - PPO) [id number] Delilah Segovia [id number] Delilah Segovia 05/18/2024 2 [facility] (MEDICAID HMO) [id number] Delilah Segovia [id number] Delilah Segovia Notes Date Note Type Note Provider Name and Address Organization Details Recorded Time 10/01/2023 text/html Obstructive Slee p ApneaReported bypatient.Severity:se jonas Timing:daily Duration:12years; frequent Context:inconsistent sleep routine; observed [...] concentration; no amnesia; no irritability;morning dry mouth;postnasal drip;dysphagia;awaken ing short of breath;daytime sleepiness;suddenly falling asleep during the day;nasal congestion;loud snoring;gasping for air;witnessed apnea;mouth breathing Prior Tests and Treatments:thyroid panel; electrocardiogramNote s:She notes right knee pain keeps her from walking far distances. She notes some shortness of breath at rest and has woke up feeling sob. She has had a CPAP in the past about 11-12 years ago. She notes some chest pressure that has woke her up at night along with gasping and choking. She is seeing [facility] and has a work-up pending. 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 EPWORTH SLEEPINESS SCALE (ESS): 13-see copy. Heather Osborn NP [address], [place] [address], [place], [address], [employer] [facility] [employer] 10/01/2023 12:26:12 12/22/2023 text/html Obstructive Slee p ApneaReported bypatient.Severity:se jonas Timing:daily Duration:12years; frequent Context:inconsistent sleep routine; observed [...] concentration; no amnesia; no irritability;morning dry mouth;postnasal drip;dysphagia;awaken ing short of breath;daytime sleepiness;suddenly falling asleep during the day;nasal congestion;loud snoring;gasping for air;witnessed apnea;mouth breathing Prior Tests and Treatments:thyroid panel; electrocardiogramNote s:here to review sleep study-mild BONILLA with hypoventilation and PLMDShe does have a hx of back pain and sciatica as well Heather Osborn NP [address], [facility] [employer], [place], [address], [email or web address] 12/22/2023 11:05:06 04/08/2024 text/html OV 04/08/2024: H ere to establish care Present Hx:HTNHypothyroidismB il Knee PainHx of cured hep C? Here to discuss above and to get labs Summer Curran MD [address], [address], [place], [address], [email or web address] 04/08/2024 19:14:25 05/18/2024 text/html OV 04/08/2024: H ere to establish care Present Hx:HTNHypothyroidismB il Knee PainHx of cured hep C? Here to discuss above and to get labs OV 05/18/2024:Here for her f/u apt, she is doing well today Summer Curran MD [address], [address], [place], [address], [email or web address] 05/18/2024 16:24:10 OBGyn Episode No OBEpisode recorded.
--- OUTSIDE RECORDS SUMMARY | 2024-07-28 13:22 | XMS_ITS | CONTINUITY OF CARE DOCUMENT ---
Author Name [email or web address] Address Unknown Organization [facility] Address [address] [address] [place] [address] Phone [phone] Care Team Providers Care Instrument Designer Name Role Phone Brown Munson MD Unavailable OSCAR ESPINO MD Unavailable [phone] OSCAR ESPINO MD Unavailable [phone] PROBLEMS Condition Status Date Provider Notes Cardiology examination active Brown Munson MD Family History of Hypertension: active Karime Munson MD Chest pain active Brown Munson MD HTN essential active Brown Munson MD Abnormal nuclear stress test active Brown krueger MD ENCOUNTERS Date Type Provider Location Encounter Diag nosis - In-person encounter Office Visit Brown Munson MD [place] [facility] Abnormal nuclear stress test - In-person encounter Office Visit Brown Munson MD [facility] Cardiology examinationFamily History of Hypertension:Chest painHTN [...] Karime Munson MD pulse rate 63 /min [facility] blood pressure, diastolic 68 mm[Hg] [facility] 118 mm[Hg] Azeb ttany [facility] oxygen saturation, oximetry 98 % [facility] blood pressure, resting Yes [facility] height E&M 63 [in_i] [facility] weight E&M 294 [lb_av] [facility] respiratory rate E&M 16 /min [facility] ALLERGIES No Known Drug Allergies RESULTS Date [...] 0-149 3 cholesterol, serum 196 mg/dL [employer] [phone]/07/0 3 calcium, serum 9.1 mg/dL [employer] 8.7-10.3 3 carbon dioxide, venous blood 25 mmol/L [employer] 20-29 3 chloride, serum 104 mmol/L [employer] 96-106 3 potassium, serum 4.4 mmol/L [employer] 3.5-5.2 3 sodium, serum 142 mmol/L [employer] 669-818 9336/07/0 3 urea nitrogen/creatinin e ratio, serum 16 [...] Estab. 3 platelet count 310 X10E3/UL [employer] 635-815 2546/07/0 3 red blood cell distribution width 14.8 [...] ADVANTAGE ST 0 003 (HMO POS) Medicare [id number] [facility] Medicaid 2 [id number] ADVANCE DIRECTIVES Name Date DISCUSSED - NO [...]
== END 2024-07-28 13:18 | disposition home or self-care (01) ==
LOC: ANHIMG 13:20
PROVIDERS: PCP Internal Medicine; Visit Provider Internal Medicine
DX: M85.89 Other specified disorders of bone density and structure, multiple sites (principal); Z13.820 Encounter for screening for osteoporosis
CPT/HCPCS: 77080

== ENCOUNTER 2024-10-06 13:22 | Outpatient (CLI) | payer MEDICARE, MEDICAID, SELFPAY ==
--- NOTE | ~2024-10-06 | XR_ITS ---
HISTORY: fell 5 days ago,bruising on rt knee, most of pain in the 5th COMPARISON: None TECHNIQUE: 3 views of the right knee were performed FINDINGS: No acute or subacute fracture. Severe degenerative disease is identified with near-complete obliteration of the medial tibiofemoral joint space with osteophytic bridging and sclerosis of the distal femur and proximal tibia. Lateral tibiofemoral joint space narrowing is also identified with sclerosis of the proximal tibia.. No suprapatellar joint effusion is identified. The infrapatellar joint space is clear. IMPRESSION: Severe degenerative disease, without acute fracture or dislocation. Reviewed, dictated and finalized at location A. IMPRESSION: Severe degenerative disease, without acute fracture or dislocation .
--- NOTE | ~2024-10-06 | XR_ITS ---
HISTORY: Pain in rt hand and knee COMPARISON: None TECHNIQUE: 3 views of the right hand were performed. FINDINGS: No acute fracture is identified. The carpal arcs are intact. Mild radiocarpal joint space narrowing with sclerosis of the distal radius is present. Moderate radial ulnar and ulnar carpal joint space narrowing with osteophyte formation. Degenerative disease within the first carpometacarpal joint space. The remaining joint spaces are otherwise preserved. Periarticular osteopenia consistent with osteoarthritis. No significant soft tissue swelling. No radiopaque foreign body is identified. IMPRESSION: Degenerative disease, without acute fracture or dislocation within the right hand, as detailed above. Reviewed, dictated and finalized at location A. IMPRESSION: Degenerative disease, without acute fracture or dislocation within the right arias nd, as detailed above.
--- OUTSIDE RECORDS SUMMARY | 2024-10-06 13:41 | XMS_ITS | Clinical Summary ---
Author Organization [facility] Address [address] [place] [address] Care Team Providers Care Go Go Dancer Name Role Phone Kiara Vasquez ESTHER Primary Care Provider [phone] Social History Tobacco Use Types Packs/Day Years Used Date Smoking Tobacco: Never Assessed Comments Unknown Sex and Gender Information Value Date Recorded Sex Assigned at Not on file Legal Sex Female 6:56 PM CDT Gender Identity Not on file Sexual Orientation Not on file Last Filed Vital Signs Vital Sign Reading Time Taken Comments Blood Pressure 110/60 04/01/2016 1:28 PM [employer] Pulse 64 04/01/2016 1:28 PM [employer] Temperature - - Respiratory Rate - - Oxygen Saturation - - Inhaled Oxygen Concentration - - Weight 141.5 kg (312 lb) 04/01/2016 1:28 PM [employer] Height 160 cm (5' 3) 04/01/2016 1:28 PM [employer] Body Mass Index 55.27 04/01/2016 1:28 PM [employer] Plan of Treatment Health Maintenance Due Date Last Done Comments Colorectal Cancer Screening Colonoscopy (10 Years) 1955 DTaP, Tdap and Td Vaccines ( 1 - Tdap) 11/12/1974 Mammogram Screening 1995 Pneumococcal Vaccine: 50+ Ye ars (1 of 1 - PCV) 11/12/2005 Zoster Vaccines (1 of 2) 11/12/2005 Dexa Scan (General) 11/12/2020 COVID-19 Vaccine ( - 2023-2 5 season) 2023 RSV Immunization or 60+ Years (1 - [...] complete this topic [place] [address] Care Teams Go Go Dancer Relationship Specialty Start Date End Date Kiara Vasquez FNP [address] [place] [id number] PCP - General Nurse Practitioner Family 09/02/18
[2024-10-06 14:41] LABS: Hematocrit 40.1 % (37.0-47.0); Hemoglobin 12.2 g/dL (12.0-15.0); Immature Granulocyte Percent A 0.4 % (0-0.5); Lymphocytes Absolute Auto 1.79 K/mm3 (0.9-3.2); Mean Corpuscular HGB Conc 30.4 g/dl (32-36); Mean Corpuscular Hemoglobin 23.6 pg (26-34); Mean Corpuscular Volume 77.7 fl (80-100); Nucleated Red Blood Cells Absolute Auto 0.000 K/mm3 (0.0-0.012); Nucleated Red Blood Cells Perc 0.0 % (0.0-0.2); Platelet Count Result 304 k/mm3 (150-375); Red Blood Count 5.16 M/mm3 (4.2-5.4); White Blood Count 7.8 K/mm3 (4.5-10.0)
[2024-10-06 15:01] LABS: Alanine Aminotransferase 16 U/L (6-35); Albumin Level 3.9 g/dL (3.5-5.1); Alkaline Phosphatase 85 U/L (38-126); Anion Gap 2 mmol/L (4-12); Aspartate Amino Transferase 24 U/L (14-36); Bilirubin,Total 0.5 mg/dL (0.2-1.3); Blood Urea Nitrogen 14 mg/dL (7-17); Calcium 8.9 mg/dL (8.4-10.2); Carbon Dioxide 27 mmol/L (22-30); Chloride 104 mmol/L (98-107); Cholesterol 207 mg/dL (0-200); Estimated Glomerular Filt Rate > 60; Glucose 110 mg/dL (65-110); HDL Direct 65 mg/dL; Potassium 4.1 mmol/L (3.4-5.0); Sodium 133 mmol/L (137-145); Total Protein 8.0 g/dL (6.3-8.2); Triglycerides 82 mg/dL (<150)
[2024-10-06 15:18] LABS: Free T4 Free Thyroxine 2.62 ng/dL (0.78-2.19)
[2024-10-06 15:37] LABS: Thyroid Stimulating Hormone 0.023 uIU/mL (0.465-4.680)
[2024-10-06 16:48] LABS: MALB Creatinine Ratio < 9.2 mg/g (0-30)
[2024-10-06 18:11] LABS: Hemoglobin A1C 5.7 % (<5.7)
== END 2024-10-06 13:23 | disposition home or self-care (01) ==
PROVIDERS: PCP Internal Medicine; Visit Provider Internal Medicine
DX: E55.9 Vitamin D deficiency, unspecified (principal); I10 Essential (primary) hypertension; M25.561 Pain in right knee; M79.641 Pain in right hand; R73.03 Prediabetes
CPT/HCPCS: 36415; 73130; 73562; 80053; 80061; 82043; 82306; 83036; 84439; 84443; 85025